=== PATIENT | female | born 1950 | race Caucasian/White ===

== ENCOUNTER → 2020-02-07 | Outpatient (CLI) | payer BC ==
[~2020-02-07] MED LIST: ALLEGRA ALLERG180 MG; ASPI81CH; ASTEPRO205.5 MCG/; Advair Hfa 230-12 GM; Estradiol0.5 MG; LOSARTAN-HCTZ1 EAC2; Lovastatin20 MG; VENL37.5ER
[2020-02-08 10:33] LABS: Appearance, Urine Clear (Clear); Bilirubin, Urine Neg (Neg); Blood, Urine Neg (Neg); Color, Urine Yellow (P-Yellow); Glucose Qualitative, Urine Neg (Neg); Ketones, Urine Neg (Neg); Leukocyte Esterase, Urine Neg (Neg); Nitrite, Urine Neg (Neg); Protein, Urine Neg (Neg); Urobilinogen, Urine NORM (Normal)
== END | disposition home or self-care (01) ==
LOC: LAB SHORT 14:00
PROVIDERS: Family Medicine
DX: N39.9 Disorder of urinary system, unspecified (principal)
CPT/HCPCS: 81003

== ENCOUNTER 2024-01-27 11:48 | Inpatient (IN) | payer MEDICARE, BC ==
[~2024-01-27] VITALS: Ht 152.4 cm; Wt 56.7 kg
[2024-01-27 12:11] LABS: BASOPHILS ABSOLUTE AUTO 0.04 K/mm3 (0.00-0.23); BASOPHILS PERCENT AUTO 0 % (0-2); EOSINOPHILS ABSOLUTE AUTO 0.04 K/mm3 (0.00-0.68); EOSINOPHILS PERCENT AUTO 0 % (0-6); Hematocrit 22.7 % (33.0-51.0); Hemoglobin 7.3 g/dL (11.5-16.0); IMMATURE GRAN ABSOLUTE AUTO 0.11 K/mm3 (0.00-0.10); IMMATURE GRAN PERCENT AUTO 1 % (0-1); LYMPHOCYTES ABSOLUTE AUTO 0.45 K/mm3 (0.84-5.20); LYMPHOCYTES PERCENT AUTO 5 % (21-46); MONOCYTES ABSOLUTE AUTO 0.55 K/mm3 (0.16-1.47); MONOCYTES PERCENT AUTO 6 % (4-13); Mean Corpuscular HGB 29.4 pg (26.0-34.0); Mean Corpuscular HGB Conc 32.2 g/dL (31.5-36.5); Mean Corpuscular Volume 92 fL (80-100); Mean Platelet Volume 10.5 fL (9.1-12.4); NEUTROPHILS ABSOLUTE AUTO 8.59 K/mm3 (1.96-9.15); NEUTROPHILS PERCENT AUTO 88 % (41-73); Platelet Count 196 K/mm3 (150-400); RDW Coefficient Variation 18.2 % (11.7-14.2); Red Blood Cell Count 2.48 M/mm3 (3.80-5.20); White Blood Cell Count 9.78 K/mm3 (4.00-11.30)
[2024-01-27 12:41] LABS: Albumin, Blood 2.8 g/dL (3.4-5.0); Albumin/Globulin Ratio 0.6 (0.8-1.8); Bilirubin, Total 0.4 mg/dL (0.1-1.0); Bun/Creatinine Ratio 17.5 (12.0-20.0); Creatinine, Blood 2.46 mg/dL (0.40-1.00); Globulin, Blood 4.4 g/dL (2.2-4.0); Potassium, Blood 5.3 mmol/L (3.5-5.5); Total Protein, Blood 7.2 g/dL (6.4-8.2)
[2024-01-27] MEDS ORDERED: CefTRIAXone Sodium 1,000 MG in NS 100 ML IV ONE (12:50)
[2024-01-27] MEDS ORDERED: NS 1,000 ML IV SCH (12:50)
[2024-01-27 13:31] LABS: Source, Urine Clean Catch
[2024-01-27] MEDS ORDERED: Morphine Sulfate 4 MG/1 ML Injection IV ONE (14:40)
[2024-01-27 15:05] LABS: Appearance, Urine Clear (Clear); Bilirubin, Urine Neg (Neg); Blood, Urine 3+ (Neg); Color, Urine Yellow (P-Yellow); Glucose Qualitative, Urine Neg (Neg); Ketones, Urine Neg (Neg); Leukocyte Esterase, Urine 2+ (Neg); Nitrite, Urine Neg (Neg); Protein, Urine 2+ (Neg); Specific Gravity, Urine 1.015 (1.003-1.022); Urobilinogen, Urine NORM (Normal)
[2024-01-27] MEDS ORDERED: Acetaminophen 500 MG Tab PO ONE (15:30)
[2024-01-27 15:34] LABS: Bacteria Mod /hpf; Squamous Epithelial Cells Few /hpf (Few); White Blood Cells, Urine 50-100 /hpf (0-5)
[2024-01-27] MEDS ORDERED: FLU VACC TS2024-25(6MOS UP)/PF 45 MCG/0.5 ML SYRINGE IM PRN (16:05)
[2024-01-27] MEDS ORDERED: Ondansetron HCl 2 MG / ML 2ML Vial IV PRN (16:05)
[2024-01-27] MEDS ORDERED: Acetaminophen 325 MG TABLET PO PRN (16:10)
[2024-01-27] MEDS ORDERED: HYDROcodone 10-APAP 325 TAB PO PRN (16:10)
[2024-01-27] MEDS ORDERED: FLUT1DIS5 INH (16:49)
[2024-01-27] MEDS ORDERED: VENL75ER PO (16:50)
[2024-01-27] MEDS ORDERED: LOSARTAN-HCTZ1 EAC6 PO (16:50)
[2024-01-27] MEDS ORDERED: JAKAFI15 MG PO (16:50)
[2024-01-27] MEDS ORDERED: LOVA40 PO (16:51)
[2024-01-27] MEDS ORDERED: ROPI.25 PO (16:51)
[2024-01-27] MEDS ORDERED: Lactated Ringer's 1,000 ML IV SCH ×2 (17:00→18:00)
[2024-01-27] MEDS ORDERED: Lactated Ringer's 1,000 ML IV ONE (17:11)
[2024-01-27] MEDS ORDERED: Piperacillin/Tazobactam Sod 2.25 GM in NS 50 ML IV SCH (17:12)
[2024-01-27] MEDS ORDERED: Albuterol 2.5 MG/3 ML VIAL INH PRN (17:15)
[2024-01-27] MEDS ORDERED: rOPINIRole HCl 0.25 MG Tab PO PRN (17:30)
[2024-01-27 18:20] VITALS: BP 166/66
[2024-01-27] MEDS ORDERED: rOPINIRole HCl 0.25 MG Tab PO SCH (20:00)
[2024-01-27 20:41] VITALS: BP 148/45
[2024-01-27] MEDS ORDERED: Lactobacil 2-S.Thermo-Bifido 1 1 Cap PO SCH (21:00)
[2024-01-28] VITALS (10 sets, daily range): BP systolic 137–185; BP diastolic 46–115
[2024-01-28] MEDS ORDERED: NS 250 ML IV PRN (00:05)
[2024-01-28] MEDS ORDERED: Mometasone/Formoterol MDI 200/5 mcg 13 GM INH SCH (01:40)
[2024-01-28] MEDS ORDERED: Albuterol 2.5 MG/3 ML VIAL INH SCH (01:45)
--- NOTE | 2024-01-28 04:05 | NUR ---
SHIFT SUMMARY PT IS A&O X4, PLEASANT AND COOPERATIVE WITH CARE. AFEBRILE. PT C/O 08/25 RIGHT FLANK PAIN AND OVERALL DISCOMFORT. PRN NORCO 10MG VERY EFFECTIVE PER PT REPORT. PT'S O2 SAT'S @LOW 80'S ON RA. PT HAS HX OF ASTHMA. LUNG SOUNDS WHEEZING UL'S, DIMINISHED ON BASES. RT PROTOCOL AND OXYGEN THERAPY PROTOCOL INITIATED. BREATHING TX'S EFFECTIVE PER PT REPORT. O2 @2L VIA NASAL CANNULA, SAT'S>98%. PT IS SBA, SOME WEAKNESS LE'S,UE'S PER PT REPORT. LR INFUSING @125MLS/HR ORDERED. BED AT THE LOWEST POSITION, CALL LIGHT WITHIN REACH. PT IS ABLE TO MAKE HER NEEDS KNOWN.
[2024-01-28 05:38] LABS: BASOPHILS ABSOLUTE AUTO 0.04 K/mm3 (0.00-0.23); BASOPHILS PERCENT AUTO 0 % (0-2); EOSINOPHILS ABSOLUTE AUTO 0.02 K/mm3 (0.00-0.68); EOSINOPHILS PERCENT AUTO 0 % (0-6); Hematocrit 20.7 % (33.0-51.0); Hemoglobin 6.7 g/dL (11.5-16.0); IMMATURE GRAN ABSOLUTE AUTO 0.08 K/mm3 (0.00-0.10); IMMATURE GRAN PERCENT AUTO 1 % (0-1); LYMPHOCYTES ABSOLUTE AUTO 0.57 K/mm3 (0.84-5.20); LYMPHOCYTES PERCENT AUTO 6 % (21-46); MONOCYTES ABSOLUTE AUTO 0.74 K/mm3 (0.16-1.47); MONOCYTES PERCENT AUTO 8 % (4-13); Mean Corpuscular HGB Conc 32.4 g/dL (31.5-36.5); Mean Corpuscular Volume 93 fL (80-100); Mean Platelet Volume 10.8 fL (9.1-12.4); NEUTROPHILS ABSOLUTE AUTO 7.71 K/mm3 (1.96-9.15); NEUTROPHILS PERCENT AUTO 84 % (41-73); Platelet Count 173 K/mm3 (150-400); RDW Coefficient Variation 18.3 % (11.7-14.2); RDW Standard Deviation 62.8 fL (35.1-46.3); Red Blood Cell Count 2.23 M/mm3 (3.80-5.20); White Blood Cell Count 9.16 K/mm3 (4.00-11.30)
[2024-01-28 06:16] LABS: Bun/Creatinine Ratio 16.3 (12.0-20.0); Creatinine, Blood 2.33 mg/dL (0.40-1.00); Potassium, Blood 4.3 mmol/L (3.5-5.5)
[2024-01-28] MEDS ORDERED: Losartan/HCTZ 50-12.5 TAB PO SCH (09:00)
[2024-01-28] MEDS ORDERED: Atorvastatin 10 MG Tab PO SCH (09:00)
[2024-01-28] MEDS ORDERED: Venlafaxine HCl 37.5 MG CapCR PO SCH (09:00)
[2024-01-28] MEDS ORDERED: Heparin Sodium 5000 Units/ML 1ML MDV SC SCH (09:00)
[2024-01-28] MEDS ORDERED: HydrALAZINE HCl 20 MG / ML 1ML Vial IV PRN (09:20)
[2024-01-28] MEDS ORDERED: CO Q10100 MG PO (11:22)
[2024-01-28] MEDS ORDERED: ESTRADIOL0.5 MG PO (11:22)
[2024-01-28] MEDS ORDERED: Vitamin D1000 UNI1 PO (11:22)
[2024-01-28] MEDS ORDERED: SULTRIDS PO (11:22)
[2024-01-28] MEDS ORDERED: MULVITA PO (11:23)
[2024-01-28 19:12] LABS: Hematocrit 24.5 % (33.0-51.0); Hemoglobin 8.3 g/dL (11.5-16.0)
[2024-01-28] MEDS ORDERED: NS 50 ML IV ONE (23:52)
[2024-01-29 01:06] VITALS: BP 79/64
--- NOTE | 2024-01-29 03:49 | NUR ---
SHIFT SUMMARY NO ACUTE EVENTS DURING THIS SHIFT. PT HAS A FEMALE PUREWICK, YELLOW COLOR URINE, OUTPUT >1L ON THIS SHIFT. PT C/O CHILLS AND REQUESTED PRN PO TYLENOL. ADMINISTERED ORDERED. WARM BLANKETS GIVEN TO THE PT. PRN NORCO 10MG AT HS PER PT REPORT RIGHT FLANK AND BACK PAIN 08/25. PT REPORTS VERY EFFECTIVE. LUNG SOUNDS WHEEZING AND TIGHT UL'S, DIMINISHED LL'S PER AUSCULTATION. O2 @2L VIA NASAL CANNULA, SAT'S>96%. PT REPORTS RT TX'S EFFECTIVE. PT RESTING WELL T/O THE NIGHT HRS. PT IS PLEASANT, COOPERATIVE WITH CARE. SBA TO THE RESTROOM. BED AT THE LOWEST POSITION, CALL LIGHT WITHIN REACH. PT IS ABLE TO MAKE HER NEEDS KNOWN.
[2024-01-29 05:36] LABS: BASOPHILS ABSOLUTE AUTO 0.02 K/mm3 (0.00-0.23); BASOPHILS PERCENT AUTO 0 % (0-2); EOSINOPHILS ABSOLUTE AUTO 0.01 K/mm3 (0.00-0.68); EOSINOPHILS PERCENT AUTO 0 % (0-6); Hematocrit 22.2 % (33.0-51.0); Hemoglobin 7.3 g/dL (11.5-16.0); IMMATURE GRAN ABSOLUTE AUTO 0.15 K/mm3 (0.00-0.10); IMMATURE GRAN PERCENT AUTO 1 % (0-1); LYMPHOCYTES ABSOLUTE AUTO 0.38 K/mm3 (0.84-5.20); LYMPHOCYTES PERCENT AUTO 4 % (21-46); MONOCYTES ABSOLUTE AUTO 0.63 K/mm3 (0.16-1.47); MONOCYTES PERCENT AUTO 6 % (4-13); Mean Corpuscular HGB 29.9 pg (26.0-34.0); Mean Corpuscular HGB Conc 32.9 g/dL (31.5-36.5); Mean Corpuscular Volume 91 fL (80-100); Mean Platelet Volume 10.8 fL (9.1-12.4); NEUTROPHILS PERCENT AUTO 89 % (41-73); Platelet Count 145 K/mm3 (150-400); RDW Coefficient Variation 18.1 % (11.7-14.2); RDW Standard Deviation 59.9 fL (35.1-46.3); Red Blood Cell Count 2.44 M/mm3 (3.80-5.20); White Blood Cell Count 10.89 K/mm3 (4.00-11.30)
[2024-01-29 05:50] VITALS: BP 131/66
[2024-01-29 05:54] LABS: Bun/Creatinine Ratio 14.1 (12.0-20.0); Calcium, Blood 8.8 mg/dL (8.5-10.1); Creatinine, Blood 2.34 mg/dL (0.40-1.00); Potassium, Blood 4.6 mmol/L (3.5-5.5)
[2024-01-29] MEDS ORDERED: Lactated Ringer's 1,000 ML IV SCH ×2 (07:00→11:00)
[2024-01-29 07:19] VITALS: BP 138/49
[2024-01-29 15:05] LABS: Bun/Creatinine Ratio 14.1 (12.0-20.0); Creatinine, Blood 2.06 mg/dL (0.40-1.00); Potassium, Blood 4.5 mmol/L (3.5-5.5)
[2024-01-29 15:38] VITALS: BP 159/56
--- NOTE | 2024-01-29 17:15 | NUR ---
SHIFT SUMMARY: PATIENT ON ROOMAIR AT THIS TIME MAINTAINING OXYGEN SATURATION ABOVE 90%;AT REST. LUNG SOUNDS SOUND BETTER TODAY VERSUS YESTERDAY. PATIENT RECEIVED FLUIDS TODAY; NOT MUCH IMPROVEMENT IN RENAL FUNCTION. PATIENT STATES THAT SHE IS OVERALL FEELING BETTER AND APEARS TO BE LOOKING BETTER. SHE IS USING A PUREWICK FOR I&OS. PATIENT IN BED, CALL LIGHT WITHIN REACH, NO SIGNS OR SYMPTOMS OF DISTRESS, PLAN OF CARE ONGOING.
[2024-01-29 19:16] VITALS: BP 176/69
[2024-01-30 00:04] VITALS: BP 159/72
[2024-01-30 03:48] VITALS: BP 183/73
--- NOTE | 2024-01-30 04:10 | NUR ---
SHIFT SUMMARY: PT AOX4 AND IND IN THE ROOM. SOME COMPLAINTS OF MINOR BACK PAIN MEDICATED PER EMR. EPISODES OF HTN MEDICATED PER EMR. WAS ABLE TO SLEEP A GOOD AMOUNT OF THE NIGHT. COMPLAINTS OF NAUSEA, MEDICATED PER EMR. STATES THAT THE MEDICATIONS HELP SOOTH THE DISCOMFORT. PT IS ROOM AIR AND ABLE TO AMBULATE TO THE RESTROOM NEEDED. CALLS APPROPRIATELY. PT CURRENTLY SLEEPING IN BED, BED IN LOWEST POSITION, CALL LIGHT IN REACH. CONTINUING CARE.
[2024-01-30 04:53] VITALS: BP 151/58
[2024-01-30 05:04] LABS: BASOPHILS ABSOLUTE AUTO 0.04 K/mm3 (0.00-0.23); BASOPHILS PERCENT AUTO 0 % (0-2); EOSINOPHILS ABSOLUTE AUTO 0.04 K/mm3 (0.00-0.68); EOSINOPHILS PERCENT AUTO 0 % (0-6); Hematocrit 22.8 % (33.0-51.0); Hemoglobin 7.6 g/dL (11.5-16.0); IMMATURE GRAN PERCENT AUTO 2 % (0-1); LYMPHOCYTES ABSOLUTE AUTO 0.39 K/mm3 (0.84-5.20); LYMPHOCYTES PERCENT AUTO 3 % (21-46); MONOCYTES ABSOLUTE AUTO 0.64 K/mm3 (0.16-1.47); MONOCYTES PERCENT AUTO 4 % (4-13); Mean Corpuscular HGB Conc 33.3 g/dL (31.5-36.5); Mean Corpuscular Volume 90 fL (80-100); Mean Platelet Volume 11.3 fL (9.1-12.4); NEUTROPHILS ABSOLUTE AUTO 13.94 K/mm3 (1.96-9.15); NEUTROPHILS PERCENT AUTO 91 % (41-73); Platelet Count 191 K/mm3 (150-400); RDW Coefficient Variation 18.3 % (11.7-14.2); RDW Standard Deviation 59.7 fL (35.1-46.3); Red Blood Cell Count 2.53 M/mm3 (3.80-5.20); White Blood Cell Count 15.35 K/mm3 (4.00-11.30)
[2024-01-30 05:31] LABS: Bun/Creatinine Ratio 14.5 (12.0-20.0); Calcium, Blood 9.2 mg/dL (8.5-10.1); Creatinine, Blood 1.93 mg/dL (0.40-1.00); Potassium, Blood 4.6 mmol/L (3.5-5.5)
[2024-01-30 07:04] VITALS: BP 141/61
[2024-01-30] MEDS ORDERED: CefTRIAXone Sodium 1,000 MG in NS 100 ML IV SCH (09:00)
[2024-01-30] MEDS ORDERED: NS 1,000 ML IV SCH (11:00)
[2024-01-30 14:33] LABS: Bun/Creatinine Ratio 14.8 (12.0-20.0); Calcium, Blood 8.7 mg/dL (8.5-10.1); Creatinine, Blood 1.82 mg/dL (0.40-1.00); Potassium, Blood 4.1 mmol/L (3.5-5.5)
[2024-01-30 15:17] VITALS: BP 151/62
[2024-01-30 19:20] VITALS: BP 150/61
[2024-01-30] MEDS ORDERED: DEXTROMETHORPHAN/BENZOCAINE 1 EACH LOZENGE MT ONE ×2 (20:00)
[2024-01-30] MEDS ORDERED: DEXTROMETHORPHAN/BENZOCAINE 1 EACH LOZENGE MT PRN (20:00)
[2024-01-30] MEDS ORDERED: Melatonin 5 MG Tablet PO ONE (20:05)
[2024-01-30] MEDS ORDERED: Melatonin 5 MG Tablet PO PRN (20:05)
--- NOTE | 2024-01-30 22:28 | NUR ---
AT 1950 I CALLED THE HOSPITALIST BECAUSE MY PT HAD A SORE THROAT AND TROUBLE SLEEPING. HOSPITALIST PRESCRIBED LOZANGES AND MELATONIN (SEE eMAR) PT IS FEELING BETTER AND NOW RESTING PEACEFULLY. HOSPITALIST ADVISED TO CALL BACK IF SORE THROAT AND COUGH DID NOT IMPROVE AND HE WOULD ORDER SOME COUGH SYRUP.
[2024-01-31] VITALS (7 sets, daily range): BP systolic 156–183; BP diastolic 52–78
--- NOTE | 2024-01-31 03:45 | NUR ---
SHIFT SUMMARY: PT IS A 73 YO FULL CODE WHO IS NOW BEING TREATED FOR PYLEONEPHRITIS. PT HAS HAD A COUPLE EPISODES OF BOWEL URGENCY AND LOOSE STOOLS OR SHE CALLS THEM "CODE JOSEPHINE".PT IS IND IN THE ROOM AND WEARS PULL UPS FOR THE INCONTINENT MOMENTS. PT REPORTS "FEELING BETTER AND NOT SOB". I CALLED THE HOSPITALIST FOR SOME COUGH DROPS AND SOMETHING TO HELP HER SLEEP (SEE PREV.NOTE). PT HAS NOW BEEN RESTING AND SLEEPING. PT ALSO RECEIVED A BREATHING TREATMENT AND USES CALL LIGHT TO MAKE HER NEEDS KNOWN. CALL LIGHT IN REACH
[2024-01-31 04:56] LABS: BASOPHILS ABSOLUTE AUTO 0.03 K/mm3 (0.00-0.23); BASOPHILS PERCENT AUTO 0 % (0-2); EOSINOPHILS ABSOLUTE AUTO 0.05 K/mm3 (0.00-0.68); EOSINOPHILS PERCENT AUTO 0 % (0-6); Hematocrit 23.1 % (33.0-51.0); Hemoglobin 7.5 g/dL (11.5-16.0); IMMATURE GRAN ABSOLUTE AUTO 0.24 K/mm3 (0.00-0.10); IMMATURE GRAN PERCENT AUTO 2 % (0-1); LYMPHOCYTES ABSOLUTE AUTO 0.33 K/mm3 (0.84-5.20); LYMPHOCYTES PERCENT AUTO 2 % (21-46); MONOCYTES ABSOLUTE AUTO 0.88 K/mm3 (0.16-1.47); MONOCYTES PERCENT AUTO 6 % (4-13); Mean Corpuscular HGB 29.5 pg (26.0-34.0); Mean Corpuscular HGB Conc 32.5 g/dL (31.5-36.5); Mean Corpuscular Volume 91 fL (80-100); Mean Platelet Volume 11.2 fL (9.1-12.4); NEUTROPHILS ABSOLUTE AUTO 13.98 K/mm3 (1.96-9.15); NEUTROPHILS PERCENT AUTO 90 % (41-73); NRBC ABSOLUTE 0.02 K/mm3 (0.00-0.02); NRBC Auto 0.1 /100 WBC (0.0-0.2); Platelet Count 214 K/mm3 (150-400); RDW Coefficient Variation 18.2 % (11.7-14.2); Red Blood Cell Count 2.54 M/mm3 (3.80-5.20); White Blood Cell Count 15.51 K/mm3 (4.00-11.30)
[2024-01-31 05:31] LABS: Bun/Creatinine Ratio 14.3 (12.0-20.0); Calcium, Blood 9.2 mg/dL (8.5-10.1); Creatinine, Blood 1.61 mg/dL (0.40-1.00); Potassium, Blood 4.5 mmol/L (3.5-5.5)
--- NOTE | 2024-01-31 18:32 | NUR ---
LAINE IS DOING WELL REGARDING WORK OF BREATHING. ROOM AIR. CONTINUING WITH IV ANTIBIOTICS. SHE COMPLAINED OF RIGHT FLANK PAIN, AND A CT SCAN WAS OBTAINED SHOWING A RUPTURED CYST ON THE RIGHT KIDNEY. PLAN IS TO NOW CONSULT UROLOGY. PT REPORTS THAT SHE HAS A GOOD APPETITE AND THAT HER LOOSE STOOLS HAVE BEGUN TO FIRM UP. SHE HAS URINARY INCONTINCE IN ATTENDS. BREATHING TREATMENTS PRN. A&O X4. ABLE TO USE CALL LIGHT APPROPRIATELY.
[2024-02-01 02:20] VITALS: BP 158/61
--- NOTE | 2024-02-01 04:00 | NUR ---
SHIFT SUMMARY: PT HAS BEEN RESTING MOST OF THE EVENING BUT DID REQUIRE SOME PAIN MEDICATION FOR PAIN AND COUGH DROPS FOR SORE THROAT. LOOSE STOOLS HAVE IMPROVED ALONG W/COUGH. PT HAS BEEN NPO SINCE MIDNIGHT FOR POSSIBLE TRANSFER OR SURGERY. PT DID REQUIRE SOME IV HYDRALAZINE FOR HIGH SYSTOLIC BP OVER 170-SEE (EMAR) HTN RESOLVED OF NOW MAKES NEEDS KNOW AND CALLS, CALL LIGHT IN REACH
[2024-02-01 04:37] LABS: BASOPHILS ABSOLUTE AUTO 0.06 K/mm3 (0.00-0.23); BASOPHILS PERCENT AUTO 0 % (0-2); EOSINOPHILS ABSOLUTE AUTO 0.06 K/mm3 (0.00-0.68); EOSINOPHILS PERCENT AUTO 0 % (0-6); Hematocrit 24.4 % (33.0-51.0); Hemoglobin 7.9 g/dL (11.5-16.0); IMMATURE GRAN ABSOLUTE AUTO 0.21 K/mm3 (0.00-0.10); IMMATURE GRAN PERCENT AUTO 1 % (0-1); LYMPHOCYTES ABSOLUTE AUTO 0.43 K/mm3 (0.84-5.20); LYMPHOCYTES PERCENT AUTO 3 % (21-46); MONOCYTES ABSOLUTE AUTO 0.98 K/mm3 (0.16-1.47); MONOCYTES PERCENT AUTO 6 % (4-13); Mean Corpuscular HGB 30.2 pg (26.0-34.0); Mean Corpuscular HGB Conc 32.4 g/dL (31.5-36.5); Mean Corpuscular Volume 93 fL (80-100); Mean Platelet Volume 11.1 fL (9.1-12.4); NEUTROPHILS ABSOLUTE AUTO 13.62 K/mm3 (1.96-9.15); NEUTROPHILS PERCENT AUTO 89 % (41-73); NRBC ABSOLUTE 0.02 K/mm3 (0.00-0.02); NRBC Auto 0.1 /100 WBC (0.0-0.2); Platelet Count 225 K/mm3 (150-400); RDW Coefficient Variation 18.2 % (11.7-14.2); RDW Standard Deviation 61.7 fL (35.1-46.3); Red Blood Cell Count 2.62 M/mm3 (3.80-5.20); White Blood Cell Count 15.36 K/mm3 (4.00-11.30)
[2024-02-01 04:54] LABS: Albumin, Blood 2.4 g/dL (3.4-5.0); Albumin/Globulin Ratio 0.6 (0.8-1.8); Bilirubin, Total 0.4 mg/dL (0.1-1.0); Calcium, Blood 9.3 mg/dL (8.5-10.1); Creatinine, Blood 1.5 mg/dL (0.40-1.00); Globulin, Blood 4.3 g/dL (2.2-4.0); Potassium, Blood 4.7 mmol/L (3.5-5.5); Total Protein, Blood 6.7 g/dL (6.4-8.2)
[2024-02-01 07:22] VITALS: BP 139/54
[2024-02-01 13:02] LABS: International Normalized Ratio 1.07; Prothrombin Time Results 11.4 Sec (9.7-11.5)
--- NOTE | 2024-02-01 13:52 | NUR ---
TO DAY SURG
--- NOTE | 2024-02-01 14:21 | NUR ---
PT WAS RETURNED TO ROOM. NO EXPLANATION. PENDING NEXT STEP FROM
[2024-02-01 16:10] VITALS: BP 150/53
--- NOTE | 2024-02-01 16:12 | NUR ---
PT PLEASANT TODAY. DID MEDICATE TODAY FOR PAIN. WENT TO PROCEDURE FOR DRAIN, RETURNED TO ROOM,, NO DRAIN PLACED. DR CALLED AND TO SEE PT TO DISCUSS. PT CONTINUES TO AMBULATE ABOUT ROOM. FRIENDS IN TO VISIT TODAY. NO OTHER NEW CONCERNS NOTED. BED IN LOW POSITION, CALL LITE IN REACH, CALLS APROP
[2024-02-01 21:26] VITALS: BP 180/58
[2024-02-01 21:45] VITALS: BP 158/60
[2024-02-02] VITALS (7 sets, daily range): BP systolic 135–178; BP diastolic 51–64
--- NOTE | 2024-02-02 03:33 | NUR ---
SHIFT SUMM: PT HAS BEEN RESTING BUT DID NEED SOME HYDRALAZINE AT BEG OF SHIFT FOR HTN WITH A SYSTOLIC GREATER THAN 170. HTN NOW RESOLVED AND PT HAS BEEN IND IN ROOM AND LESS INCONT. EPISODES.PT HAD A SNACK BEFORE MIDNIGHT AND IS NOW NPO FOR SURGERY TOMORROW. PT RECEIVED PAIN MEDICATION AND HAS NO REQUESTS AT THIS TIME. I APPLIED TELE TO THE PT AND SHE IS A LITTLE TACHYCARDIC BUT NORMAL SR. PT IS NOW RESTING AND HAS CALL LIGHT.
[2024-02-02 06:59] LABS: BASOPHILS ABSOLUTE AUTO 0.06 K/mm3 (0.00-0.23); BASOPHILS PERCENT AUTO 0 % (0-2); EOSINOPHILS ABSOLUTE AUTO 0.17 K/mm3 (0.00-0.68); EOSINOPHILS PERCENT AUTO 1 % (0-6); Hematocrit 24.6 % (33.0-51.0); Hemoglobin 7.9 g/dL (11.5-16.0); IMMATURE GRAN ABSOLUTE AUTO 0.29 K/mm3 (0.00-0.10); IMMATURE GRAN PERCENT AUTO 2 % (0-1); LYMPHOCYTES ABSOLUTE AUTO 0.44 K/mm3 (0.84-5.20); LYMPHOCYTES PERCENT AUTO 3 % (21-46); MONOCYTES ABSOLUTE AUTO 1.12 K/mm3 (0.16-1.47); MONOCYTES PERCENT AUTO 6 % (4-13); Mean Corpuscular HGB 29.8 pg (26.0-34.0); Mean Corpuscular HGB Conc 32.1 g/dL (31.5-36.5); Mean Corpuscular Volume 93 fL (80-100); Mean Platelet Volume 10.6 fL (9.1-12.4); NEUTROPHILS ABSOLUTE AUTO 15.42 K/mm3 (1.96-9.15); NEUTROPHILS PERCENT AUTO 88 % (41-73); NRBC ABSOLUTE 0.03 K/mm3 (0.00-0.02); NRBC Auto 0.2 /100 WBC (0.0-0.2); Platelet Count 244 K/mm3 (150-400); RDW Coefficient Variation 18.3 % (11.7-14.2); RDW Standard Deviation 62.4 fL (35.1-46.3); Red Blood Cell Count 2.65 M/mm3 (3.80-5.20)
[2024-02-02 07:22] LABS: Albumin, Blood 2.2 g/dL (3.4-5.0); Albumin/Globulin Ratio 0.5 (0.8-1.8); Bilirubin, Total 0.4 mg/dL (0.1-1.0); Bun/Creatinine Ratio 11.9 (12.0-20.0); Calcium, Blood 9.4 mg/dL (8.5-10.1); Creatinine, Blood 1.6 mg/dL (0.40-1.00); Globulin, Blood 4.3 g/dL (2.2-4.0); Potassium, Blood 4.5 mmol/L (3.5-5.5); Total Protein, Blood 6.5 g/dL (6.4-8.2)
[2024-02-02] MEDS ORDERED: NS 250 ML IV ONE (13:48)
--- NOTE | 2024-02-02 16:18 | NUR ---
SHIFT SUMMARY PT AWAKE DURING SHIFT REPORT. RESTING QUIETLY WATCHING TV. PT NPO FOR PROCEDURE THIS AFTERNOON. IR PLACED DRAIN TO R KIDNEY; PT TOLERATED WELL. NOW BACK TO RM. DR FLYNN NOTIFIED FOR DIET. NO C/O. UP INDEPENDENTLY TO BTHRM AND AMBULATING AROUND RM. PLEASANT AND CO-OP. ABLE TO MAKE NEEDS KNOWN.
[2024-02-03 03:31] VITALS: BP 180/66
[2024-02-03 04:24] VITALS: BP 163/59
[2024-02-03 04:43] LABS: BASOPHILS ABSOLUTE AUTO 0.07 K/mm3 (0.00-0.23); BASOPHILS PERCENT AUTO 0 % (0-2); EOSINOPHILS ABSOLUTE AUTO 0.22 K/mm3 (0.00-0.68); EOSINOPHILS PERCENT AUTO 1 % (0-6); Hematocrit 24.5 % (33.0-51.0); Hemoglobin 7.9 g/dL (11.5-16.0); IMMATURE GRAN ABSOLUTE AUTO 0.47 K/mm3 (0.00-0.10); IMMATURE GRAN PERCENT AUTO 3 % (0-1); LYMPHOCYTES ABSOLUTE AUTO 0.55 K/mm3 (0.84-5.20); LYMPHOCYTES PERCENT AUTO 3 % (21-46); MONOCYTES ABSOLUTE AUTO 1.05 K/mm3 (0.16-1.47); MONOCYTES PERCENT AUTO 6 % (4-13); Mean Corpuscular HGB 29.5 pg (26.0-34.0); Mean Corpuscular HGB Conc 32.2 g/dL (31.5-36.5); Mean Corpuscular Volume 91 fL (80-100); Mean Platelet Volume 10.9 fL (9.1-12.4); NEUTROPHILS ABSOLUTE AUTO 16.13 K/mm3 (1.96-9.15); NEUTROPHILS PERCENT AUTO 87 % (41-73); NRBC ABSOLUTE 0.02 K/mm3 (0.00-0.02); NRBC Auto 0.1 /100 WBC (0.0-0.2); Platelet Count 294 K/mm3 (150-400); RDW Standard Deviation 59.9 fL (35.1-46.3); Red Blood Cell Count 2.68 M/mm3 (3.80-5.20); White Blood Cell Count 18.49 K/mm3 (4.00-11.30)
--- NOTE | 2024-02-03 05:00 | NUR ---
NOS SUMMARY- PT DRAIN IS PUTTING OUT SCANT RED FLUID. DRAIN DRESSING IS C/D/I. PT PAIN MANAGED WELL. PT HAS SOME HTN NOTED AND TX PER APR. PT HAS SLEPT OFF AND ON. NO TELE EVENTS REPORTED. PT HAS REMAINED SR IN LOW 100'S. PT HAS BEEN UP TO VOID WITHOUT ISSUE. CALL LIGHT IN REACH.
[2024-02-03 05:32] LABS: Albumin, Blood 2.2 g/dL (3.4-5.0); Albumin/Globulin Ratio 0.5 (0.8-1.8); Bilirubin, Total 0.4 mg/dL (0.1-1.0); Bun/Creatinine Ratio 12.3 (12.0-20.0); Calcium, Blood 9.2 mg/dL (8.5-10.1); Creatinine, Blood 1.38 mg/dL (0.40-1.00); Globulin, Blood 4.2 g/dL (2.2-4.0); Potassium, Blood 3.8 mmol/L (3.5-5.5); Total Protein, Blood 6.4 g/dL (6.4-8.2)
[2024-02-03 07:51] VITALS: BP 166/61
--- NOTE | 2024-02-03 10:03 | NUR ---
ASSUMED CARE OF PATIENT. BEDSIDE REPORT COMPLETED. PATIENT AWAKE AND PARTICIPATES IN REPORT. URACIL PATENT AND DRAINING SCANT AMOUNT OF LINA BLOOD VIA ACCORDIAN DRAIN. PAIN MINIMAL AT THIS TIME. SALINE LOCKED LEFT FOREARM. NO CONCERNS AT THIS TIME.
[2024-02-03] MEDS ORDERED: Vancomycin HCL 1,250 MG in NS 250 ML IV SCH (15:30)
[2024-02-03 15:48] VITALS: BP 166/60
--- NOTE | 2024-02-03 18:29 | NUR ---
END OF SHIFT SUMMARY: A&Ox4. PLEASANT AND COOPERATIVE WITH CARE. CALLS APPROPRIATELY AND IS ABLE TO ADVOCATE NEEDS EFFECTIVELY. CONTINENT OF BOWEL AND BLADDER AND AMBULATES INDEPENDENTLY WITHIN THE ROOM. LBM TODAY PER PATIENT REPORT. MEDICATED PRN PAIN x2 T/O SHIFT. VANCO STARTED TODAY. ACCORDIAN DRAIN PATENT AND DRAINING LINA RED BLOOD TO URESIL COLLECTION BAG. ONE REPORTED EPISODE OF TACHYCARDIA NOTED ON TELEMETRY WHEN AMBULATING TO BATHROOM. BED IN LOWEST POSITION, CALL LIGHT WITHIN REACH, ALL NEEDS MET. REPORT TO ONCOMING NURSE.
[2024-02-03 19:32] VITALS: BP 151/56
[2024-02-04 04:02] VITALS: BP 152/73
--- NOTE | 2024-02-04 04:37 | NUR ---
PT HAS HAD A GOOD EVENING AND HAS BEEN RESTING MOST OF THE SHIFT. I ASSESSED THE PT'S DRAIN AND EMPTIED 50MLS OF LINA RED BLOOD. PT HAS HAD SOME PAIN THAT WAS TREATED BUT VITALS WNL. PT IND WITH CALL LIGHT IN REACH.
[2024-02-04 05:20] LABS: Hematocrit 23.6 % (33.0-51.0); Hemoglobin 7.4 g/dL (11.5-16.0); Mean Corpuscular HGB 29.2 pg (26.0-34.0); Mean Corpuscular HGB Conc 31.4 g/dL (31.5-36.5); Mean Corpuscular Volume 93 fL (80-100); Mean Platelet Volume 10.5 fL (9.1-12.4); NRBC ABSOLUTE 0.02 K/mm3 (0.00-0.02); NRBC Auto 0.1 /100 WBC (0.0-0.2); Platelet Count 297 K/mm3 (150-400); RDW Coefficient Variation 18.1 % (11.7-14.2); RDW Standard Deviation 61.7 fL (35.1-46.3); Red Blood Cell Count 2.53 M/mm3 (3.80-5.20); White Blood Cell Count 14.76 K/mm3 (4.00-11.30)
[2024-02-04 05:58] LABS: Anion Gap 13 mmol/L (3-11); Blood Urea Nitrogen 19 mg/dL (8-24); Bun/Creatinine Ratio 11.6 (12.0-20.0); CO2, Blood 22 mmol/L (21-32); Chloride, Blood 103 mmol/L (98-108); Creatinine, Blood 1.64 mg/dL (0.40-1.00); Glomerular Filtration Rate 33 (60-); Glucose, Blood 114 mg/dL (70-99); Sodium, Blood 134 mmol/L (136-145); Vancomycin, Random 18.5 ug/mL
[2024-02-04 06:24] LABS: BAND PERCENT MAN 2 % (0-8); BASOPHILS PERCENT MAN 0 % (0-2); EOSINOPHILS ABSOLUTE MAN 0.29 K/mm3 (0.00-0.68); EOSINOPHILS PERCENT MAN 2 % (0-6); LYMPHOCYTES ABSOLUTE MAN 0.59 K/mm3 (0.84-5.20); LYMPHOCYTES PERCENT MAN 4 % (21-46); METAMYELOCYTE ABSOLUTE MAN 0.14 K/mm3 (0.00-0.00); METAMYELOCYTE PERCENT MAN 1 % (0-0); MONOCYTES ABSOLUTE MAN 0.59 K/mm3 (0.16-1.47); MONOCYTES PERCENT MAN 4 % (4-13); MYELOCYTE ABSOLUTE MAN 0.29 K/mm3 (0.00-0.00); MYELOCYTE PERCENT MAN 2 % (0-0); NEUTROPHILS ABSOLUTE MAN 12.84 K/mm3 (1.96-9.15); SEG NEUTROPHILS PERCENT MAN 85 % (41-73); TOTAL CELLS COUNTED 100
--- NOTE | 2024-02-04 07:25 | NUR ---
ASSUMED CARE OF PATIENT. PATIENT AWAKE DURING SHIFT CHANGE REPORT. NO C/O PAIN OR DISCOMFORT. URESIL PATENT AND DRAINING TO ACCORDIAN DRAINAGE.
[2024-02-04 07:30] VITALS: BP 145/64
[2024-02-04] MEDS ORDERED: Vancomycin HCL 500 MG in NS 250 ML IV SCH (09:00)
[2024-02-04 15:53] VITALS: BP 154/66
--- NOTE | 2024-02-04 16:17 | NUR ---
CALL FORM CLASSIFIER TENDER: PATIENT HAD SHORT RUN OF V-TACK TO 150s AND THEN BACK DOWN TO 80s. CHECKED WITH PATIENT WHO HAD JUST AMBULATED TO THE BATHROOM AND WAS EXPERIENCING SOME FLANK PAIN. MEDICATED FOR PAIN AND PROVIDER NOTIFIED OF EPISODE. NO NEW ORDERS.
[2024-02-04] MEDS ORDERED: NS 1,000 ML IV SCH (18:00)
--- NOTE | 2024-02-04 18:49 | NUR ---
END OF SHIFT SUMMARY: A&Ox4. PLEASANT AND COOPERATIVE WITH CARE. CALLS APPROPRIATELY AND IS ABLE TO ADVOCATE NEEDS EFFECTIVELY. CONTINENT OF BOWEL AND BLADDER AND AMBULATES INDEPENDENTLY WITHIN THE ROOM. LBM TODAY PER PATIENT REPORT. MEDICATED PRN PAIN x2 T/O SHIFT. NEXT DOSE DUE AT 2200. URESIL PATENT AND DRAINING VIA ACCORDIAN NEGATIVE PRESSURE. CONTINUES WITH VANCO AND ROCEPHIN; ABSCESS Cx GREW OUT E.COLI. EPISODE OF TACHYCARDIA AGAIN WHILE AMBULATING TO BATHROOM. NO NEW ORDERS WHEN PROVIDER NOTIFIED. ABD CT SHOWED DECREASE IN SIZE OF SUBCAPSULAR RENAL HEMATOMA. HAORS VOICE OF WHICH SHE ATTRIBUTES TO HER INHALER. BED IN LOWEST POSITION, CALL LIGHT WITHIN REACH, ALL NEEDS MET. REPORT TO ONCOMING NURSE.
[2024-02-04] MEDS ORDERED: Misc. Inhaler INH SCH (19:50)
[2024-02-04 20:24] VITALS: BP 175/70
[2024-02-04 20:25] VITALS: BP 156/65
--- NOTE | 2024-02-05 05:25 | NUR ---
CUSTOM HOME INSTALLER SUMMARY NO MAJOR COMPLAINTS OVERNIGHT. SEE I AND O FOR DRAIN OUTPUT.
[2024-02-05 05:44] VITALS: BP 160/66
[2024-02-05 07:59] VITALS: BP 144/68
[2024-02-05 08:15] LABS: Hematocrit 22.7 % (33.0-51.0); Hemoglobin 7.2 g/dL (11.5-16.0); Mean Corpuscular HGB 29.4 pg (26.0-34.0); Mean Corpuscular HGB Conc 31.7 g/dL (31.5-36.5); Mean Corpuscular Volume 93 fL (80-100); Mean Platelet Volume 10.8 fL (9.1-12.4); NRBC ABSOLUTE 0.02 K/mm3 (0.00-0.02); NRBC Auto 0.2 /100 WBC (0.0-0.2); Platelet Count 329 K/mm3 (150-400); RDW Coefficient Variation 18.3 % (11.7-14.2); RDW Standard Deviation 62.2 fL (35.1-46.3); Red Blood Cell Count 2.45 M/mm3 (3.80-5.20); White Blood Cell Count 11.96 K/mm3 (4.00-11.30)
[2024-02-05 08:35] LABS: Albumin/Globulin Ratio 0.5 (0.8-1.8); Bilirubin, Total 0.4 mg/dL (0.1-1.0); Bun/Creatinine Ratio 13.1 (12.0-20.0); Calcium, Blood 8.6 mg/dL (8.5-10.1); Creatinine, Blood 1.45 mg/dL (0.40-1.00); Globulin, Blood 3.9 g/dL (2.2-4.0); Potassium, Blood 3.9 mmol/L (3.5-5.5); Total Protein, Blood 5.9 g/dL (6.4-8.2)
[2024-02-05] MEDS ORDERED: NS 250 ML IV ONE (09:32)
[2024-02-05 10:19] LABS: BAND PERCENT MAN 2 % (0-8); BASOPHILS ABSOLUTE MAN 0.11 K/mm3 (0.00-0.23); BASOPHILS PERCENT MAN 1 % (0-2); EOSINOPHILS ABSOLUTE MAN 0.59 K/mm3 (0.00-0.68); EOSINOPHILS PERCENT MAN 5 % (0-6); LYMPHOCYTES ABSOLUTE MAN 0.35 K/mm3 (0.84-5.20); LYMPHOCYTES PERCENT MAN 3 % (21-46); METAMYELOCYTE ABSOLUTE MAN 0.11 K/mm3 (0.00-0.00); METAMYELOCYTE PERCENT MAN 1 % (0-0); MONOCYTES ABSOLUTE MAN 0.47 K/mm3 (0.16-1.47); MONOCYTES PERCENT MAN 4 % (4-13); MYELOCYTE ABSOLUTE MAN 0.11 K/mm3 (0.00-0.00); MYELOCYTE PERCENT MAN 1 % (0-0); NEUTROPHILS ABSOLUTE MAN 10.16 K/mm3 (1.96-9.15); SEG NEUTROPHILS PERCENT MAN 83 % (41-73); TOTAL CELLS COUNTED 100
[2024-02-05] MEDS ORDERED: NS 1,000 ML IV SCH (11:00)
[2024-02-05 15:38] VITALS: BP 185/75
[2024-02-05] MEDS ORDERED: ACET325 PO (16:18)
[2024-02-05] MEDS ORDERED: ALBU90OI INH (16:20)
[2024-02-05] MEDS ORDERED: CEFD300 PO (16:20)
[2024-02-05] MEDS ORDERED: Norco 10-325 T1 EACH PO (16:21)
[2024-02-05] MEDS ORDERED: VISBIOME 112.51 EACH PO (16:22)
== END 2024-02-05 17:45 | disposition home or self-care (01) | DRG 871 ==
LOC: ER 11:48 → MEDS 16:03 → PCU 02-01 14:12 → MEDS 02-01 14:17
PROVIDERS: Emergency Medicine; Family Medicine; Student in an Organized Health Care Education/Training Program; ADMIT Hospitalist
PROC: 3E03329 Introduction of Other Anti-infective into Peripheral Vein, Percutaneous Approach (ICD-10-PCS; principal; 2024-01-27)
PROC: 30233N1 Transfusion of Nonautologous Red Blood Cells into Peripheral Vein, Percutaneous Approach (ICD-10-PCS; 2024-01-28)
DX: A41.51 Sepsis due to Escherichia coli [E. coli] (principal); J96.01 Acute respiratory failure with hypoxia; N15.1 Renal and perinephric abscess; N12 Tubulo-interstitial nephritis, not specified as acute or chronic; Z16.24 Resistance to multiple antibiotics; N17.9 Acute kidney failure, unspecified; D75.81 Myelofibrosis; N18.2 Chronic kidney disease, stage 2 (mild); J45.909 Unspecified asthma, uncomplicated; F32.A Depression, unspecified; E78.5 Hyperlipidemia, unspecified; I12.9 Hypertensive chronic kidney disease with stage 1 through stage 4 chronic kidney disease, or unspecified chronic kidney disease; G25.81 Restless legs syndrome; D63.0 Anemia in neoplastic disease; D64.9 Anemia, unspecified; D72.819 Decreased white blood cell count, unspecified; D75.839 Thrombocytosis, unspecified; D72.829 Elevated white blood cell count, unspecified; Z88.8 Allergy status to other drugs, medicaments and biological substances; Z79.51 Long term (current) use of inhaled steroids; Z79.82 Long term (current) use of aspirin; Z87.891 Personal history of nicotine dependence; Z60.2 Problems related to living alone
CPT/HCPCS: 36415; 36430; 71045; 71046; 74176; 74177; 75989; 76770; 80048; 80053; 80202; 81001; 83605; 85014; 85018; 85025; 85610; 86850; 86900; 86901; 86923; 87040; 87070; 87075; 87077; 87086; 87186; 87205; 93005; 93010; 94640; 94664; 94760; 94762; 96365; 96375; 99285-25; A9270; C1729; C1769; J0360; J0696; J1644; J2270; J2405; J2543; J3370; J7030; J7050; J7120; P9016; Q9967

== ENCOUNTER 2024-02-29 06:42 | Day surgery (SDC) | payer BC ==
[~2024-02-29] VITALS: Ht 149.9 cm; Wt 56.0 kg
[~2024-02-29 06:42] MED LIST changes: +ACET325 PO; +ALBU90OI INH; +CEFD300 PO; +CO Q10100 MG PO; +ESTRADIOL0.5 MG PO; +FLUT1DIS5 INH; +JAKAFI15 MG PO; +LOSARTAN-HCTZ1 EAC6 PO; +LOVA40 PO; +MULVITA PO; +Norco 10-325 T1 EACH PO; +ROPI.25 PO; +SULTRIDS PO; +VENL75ER PO; +VISBIOME 112.51 EACH PO; +Vitamin D1000 UNI1 PO
[2024-02-29] MEDS ORDERED: NS 250 ML IV ONE (06:53)
--- NOTE | 2024-02-29 08:07 | NUR ---
NO SEDATION USED. NO IV. PT PEPARED FOR DISCHARGE.
== END 2024-02-29 08:59 | disposition home or self-care (01) ==
LOC: MHTC 06:42
DX: S37.019A Minor contusion of unspecified kidney, initial encounter (principal); E78.5 Hyperlipidemia, unspecified; I10 Essential (primary) hypertension; Z88.8 Allergy status to other drugs, medicaments and biological substances; Z79.899 Other long term (current) drug therapy; X58.XXXA Exposure to other specified factors, initial encounter
CPT/HCPCS: C1729; C1769; J7050

== ENCOUNTER → 2024-04-25 | Outpatient (CLI) | payer BC ==
[2024-04-26 12:12] LABS: Stool Occult Bld Immuno 1 Negative (NEGATIVE)
== END | disposition home or self-care (01) ==
LOC: LAB SHORT 11:50 → LAB 11:50 → LAB FUT 04-11 14:15
PROVIDERS: Family Medicine
DX: Z12.11 Encounter for screening for malignant neoplasm of colon (principal); R79.9 Abnormal finding of blood chemistry, unspecified
CPT/HCPCS: G0328

== ENCOUNTER 2024-10-07 05:17 | Inpatient (IN) | payer MEDICARE, BC ==
[2024-10-07] VITALS (44 sets, daily range): BP systolic 107–230; BP diastolic 36–112
[~2024-10-07] VITALS: Ht 149.9 cm; Wt 72.5 kg
[2024-10-07 05:43] LABS: pH Blood Venous 7.42 (7.34-7.37)
[2024-10-07 05:54] LABS: BASOPHILS ABSOLUTE AUTO 0.06 K/mm3 (0.00-0.23); BASOPHILS PERCENT AUTO 1 % (0-2); EOSINOPHILS ABSOLUTE AUTO 0.03 K/mm3 (0.00-0.68); EOSINOPHILS PERCENT AUTO 0 % (0-6); IMMATURE GRAN ABSOLUTE AUTO 0.18 K/mm3 (0.00-0.10); IMMATURE GRAN PERCENT AUTO 2 % (0-1); LYMPHOCYTES ABSOLUTE AUTO 1.53 K/mm3 (0.84-5.20); LYMPHOCYTES PERCENT AUTO 12 % (21-46); MONOCYTES ABSOLUTE AUTO 0.78 K/mm3 (0.16-1.47); MONOCYTES PERCENT AUTO 6 % (4-13); Mean Corpuscular HGB Conc 32.4 g/dL (31.5-36.5); Mean Corpuscular Volume 90 fL (80-100); NEUTROPHILS ABSOLUTE AUTO 9.74 K/mm3 (1.96-9.15); NEUTROPHILS PERCENT AUTO 79 % (41-73); NRBC ABSOLUTE 0.28 K/mm3 (0.00-0.02); NRBC Auto 2.3 /100 WBC (0.0-0.2); Platelet Count 168 K/mm3 (150-400); RDW Coefficient Variation 20.8 % (11.7-14.2); RDW Standard Deviation 68.0 fL (35.1-46.3)
[2024-10-07 05:58] LABS: Hematocrit 17.3 % (33.0-51.0); Hemoglobin 5.6 g/dL (11.5-16.0)
[2024-10-07 06:07] LABS: Alanine Aminotransfer (ALT/SGP 79.0 U/L (12-78); Albumin, Blood 4.0 g/dL (3.4-5.0); Albumin/Globulin Ratio 1.2 (0.8-1.8); Anion Gap 13.0 mmol/L (3-11); Aspartate Aminotrans (AST/SGOT 54.0 U/L (12-37); Bilirubin, Total 0.4 mg/dL (0.1-1.0); Blood Urea Nitrogen 29.0 mg/dL (8-24); CO2, Blood 22.0 mmol/L (21-32); Calcium, Blood 8.2 mg/dL (8.5-10.1); Chloride, Blood 99.0 mmol/L (98-108); Creatinine, Blood 1.6 mg/dL (0.40-1.00); Globulin, Blood 3.4 g/dL (2.2-4.0); Glucose, Blood 113.0 mg/dL (70-99); Potassium, Blood 4.2 mmol/L (3.5-5.5); Sodium, Blood 130.0 mmol/L (136-145); Total Protein, Blood 7.4 g/dL (6.4-8.2)
[2024-10-07] MEDS ORDERED: CefTRIAXone Sodium 2,000 MG in NS 100 ML IV ONE (06:25)
[2024-10-07] MEDS ORDERED: NS 1,000 ML IV SCH ×3 (06:25→08:25)
[2024-10-07] MEDS ORDERED: Albuterol 2.5 MG/3 ML VIAL INH SCH (07:20)
[2024-10-07 07:29] LABS: Magnesium, Blood 2.3 mg/dL (1.6-2.4); Phosphorus, Blood 3.5 mg/dL (2.5-4.9)
[2024-10-07 07:53] LABS: Influenza A, PCR NEGATIVE (NEGATIVE); Influenza B, PCR NEGATIVE (NEGATIVE); Resp Syncytial Virus, PCR NEGATIVE (NEGATIVE); SARS-Cov-2 (COVID-19) PCR, MMC NEGATIVE (NEGATIVE)
[2024-10-07] MEDS ORDERED: Ipratropium/Albuterol SulF 2.5-0.5MG/3 ML Amp INH PRN ×2 (08:05→14:15)
[2024-10-07] MEDS ORDERED: Ondansetron HCl 2 MG / ML 2ML Vial IV PRN (08:10)
[2024-10-07] MEDS ORDERED: Piperacillin/Tazobactam Sod 3.375 GM in NS 100 ML IV ONE ×2 (08:20→12:30)
[2024-10-07] MEDS ORDERED: Enoxaparin 30 MG/0.3 ML SYR SC SCH (09:00)
[2024-10-07] MEDS ORDERED: JAKAFI10 MG PO (09:41)
[2024-10-07] MEDS ORDERED: NEURONTIN300 MG PO (09:43)
[2024-10-07] MEDS ORDERED: Afeditab Cr30 MG PO (09:43)
[2024-10-07] MEDS ORDERED: FLUTICASONE-SA1 EAC9 INH (09:46)
[2024-10-07] MEDS ORDERED: Furosemide 10 MG / ML 2ML Vial IV ONE (11:55)
[2024-10-07] MEDS ORDERED: LORazepam 2 MG/ML 1ML Injection IV ONE (11:55)
[2024-10-07] MEDS ORDERED: LORazepam 2 MG/ML 1ML Injection IV STA (12:34)
[2024-10-07] MEDS ORDERED: LORazepam 2 MG / ML 10ML Vial IV ONE (12:35)
[2024-10-07] MEDS ORDERED: Albuterol 2.5 MG/3 ML VIAL INH PRN (12:40)
[2024-10-07 12:45] LABS: pH Blood Arterial 7.04 (7.35-7.45)
[2024-10-07] MEDS ORDERED: Ipratropium/Albuterol SulF 2.5-0.5MG/3 ML Amp INH SCH ×3 (12:45→15:55)
--- NOTE | 2024-10-07 12:45 | NUR ---
PT ARRIVED IN THE UNIT VIA STRETCHER FROM ED TO PCU 01 AT APPROX 11AM. PT TRANSFERRED VIA SLIDER SHEET, PT IS ON 4L OF O2 VIA NASAL CANNULA. NOTICED SOME AUDIBLE CRACKLES AND SOB DURING TRANSFER. PT CONTINUES TO WORKO HARD ON BREATHING RR WENT UP TO 20-30S. SATS IN THE 87-88% O2 TURNED UP TO 8L, RT WAS CALLED FOR A BREATHING TREATMENT WITH NO HELP. PT STARTED GETTING ANXIOUS AND RESTLESS IN BED TRIPODING TO BREATHE, ORDER RECEIVED FOR BIPAP. PT WAS ALSO GIVEN 0.25MG IV ATIVAN AND IV LASIX 20MG ONE TIME DOSE, ALSO ORDERED BNP, AWAITING FOR RESULT. PT WAS ABLE TO CALM DOWN BUT STILL STRUGGLING WITH BREATHING, PT UNABLE TO MAINTAIN SATS WITH SETTINGS 13/8 100% FIO2. SATS AT 84%. CALLED MD AGAIN ORDER RECEIVED FRO ABG STAT, RT MADE AWARE. THIS RN CALLED FOR PHYSICIAN/ALLERGY/IMMUNOLOGY PT STARTED GETTING UNRESPONSIVE. [facility] ICU BLUE CRABBER AND MIRI CAME TO ASSESS PT AND DECIEDED TO TRANSFER PT TO ICU FOR EMERGENT INTUBATION. JOSELO WARPMAN CALLED FAMILY, BEDSIDE REPORT GIVEN TO FRANCISCO MCGEE. ALL BELONGINGS SENT WITH THE PT
--- NOTE | 2024-10-07 12:52 | NUR ---
SEED CLEANER/INTUBATION Arrival to ICU 7 at 1252 for acute respiratory distress and failure. Dr Leon at bedside. On BiPAP 30/10 and 100% FiO2. SpO2 90-91%. Pt unresponsive. supervisor knitting attempted to reach family, left message. 1256 - 2 G magnesium given from crash cart per v/o Dr Leon. 40 mg lasix and and 125 mg solumedrol given per MAR documentation. 1310 - Large bolus of frothy secretions suctioned from oropharynx. Decision made to proceed with intubation. 50 mcg fentanyl given per MAR, v/o Dr Leon 1316 - 60 mg propofol given. 1317 - 50 mg rocuronium given 1319 - successful intubation, #7.5 ETT, 23 cm at teeth. Bilateral breath sounds auscultated. No air over epigastrum. Appropriate ETCO2 waveform. ETCO2 45. ogt placed at 55cm, verbal from Dr. Leon after review of XR that ogt placement is appropriate.
--- NOTE | 2024-10-07 12:56 | NUR ---
"Spiritual Care | Rapid Response Responded to PC1 and supported staff in the hallway outside the room. Pt. is transported to ICU7. Will remain available to the Pt. and Staff."
--- NOTE | 2024-10-07 13:05 | NUR ---
Patient transfered to ICU 7 from PCU 1. Family notified of ROOM ATTENDANT Adin (SON and health care directive [phone]) S.O. Eric Huffman [phone] alternate directive daughter Jayden Murphy [phone] per son Adin.
[2024-10-07] MEDS ORDERED: FentaNYL Citrate 50 MCG/ML 2 ML Injection ONE (13:13)
[2024-10-07] MEDS ORDERED: FentaNYL Citrate 50 MCG/ML 2 ML Injection IV ONE ×2 (13:15→14:55)
[2024-10-07] MEDS ORDERED: NS 250 ML IV PRN (14:10)
[2024-10-07] MEDS ORDERED: Cefepime HCl 1,000 MG in NS 100 ML IV SCH (14:18)
[2024-10-07] MEDS ORDERED: Bumetanide 0.25 MG/ML 10ML Vial IV ONE (14:20)
[2024-10-07] MEDS ORDERED: FentaNYL Citrate 50 MCG/ML 2 ML Injection IV PRN (14:35)
[2024-10-07] MEDS ORDERED: Vancomycin (Pharmacy Consult) IV SCH (15:00)
[2024-10-07] MEDS ORDERED: Rocuronium Bromide 10 MG/ML 5ML Injection IV ONE ×5 (15:25→18:51)
[2024-10-07] MEDS ORDERED: Albuterol 2.5 MG/3 ML VIAL INH ONE (15:30)
[2024-10-07] MEDS ORDERED: Propofol 10mg/ml 20 ml Vial (Procedural) IV ONE ×2 (15:48→17:04)
[2024-10-07] MEDS ORDERED: Hydrogen Peroxide 1.5 % Solution MT SCH (16:00)
[2024-10-07] MEDS ORDERED: NS IV SCH (16:25)
[2024-10-07] MEDS ORDERED: CISATRACURIUM BESYLATE IV SCH (16:25)
[2024-10-07] MEDS ORDERED: Cisatracurium Besylate 100 MG in NS 50 ML IV PRN (16:35)
[2024-10-07] MEDS ORDERED: MAGNESIUM SULFATE 4.06 MEQ/ML IV ONE (17:04)
[2024-10-07] MEDS ORDERED: Phenylephrine HCl 40 MCG/ML-NS 10MLSYR (0.4MG/ML) IV ONE (17:04)
--- NOTE | 2024-10-07 18:23 | NUR ---
SHIFT SUMMARY PT REMAINS INTUBATED AND SEDATED. NOT FOLLOWING COMMANDS OR MAKING PURPOSEFUL MOVEMENTS. NIMBEX INFUSING AT 1 MCG/KG/MIN, PROPOFOL INFUSING AT 65 MCG/KG/HR, FENTANYL INFUSING AT 75 MCG/HR. NIMBEX TITRATED TO MAINTAIN BIS OF 40-60. TOF COMPLETED c MED INITIATION, SEE FLOW SHEET. CONTINUOUS CARDIAC MONITORING SHOWS SR, INITIALLY HYPERTENSIVE UPON ADMIT TO UNIT BUT BP IS NOW STABLE. VENT SETTINGS A/C VC 22/325/13/80% c O2 SATURATIONS > 92%. SPUTUM CX NEEDED. NO BM THIS SHIFT. OGT TO LIS. LITTLE PATENT AND DRAINING TO GRAVITY. DIURESED THIS SHIFT. BRUISE TO R HIP AND R AXILLA, SEE PHOTOS IN CHART. PICC LINE INFUSING. PER DR. GUERRA, HOLD UNIT OF [facility] PENDING LABS. WILL CONTINUE TO MONITOR AND REPORT TO ONCOMING RN.
[2024-10-07 19:01] LABS: pH Blood Venous 7.26 (7.34-7.37)
[2024-10-07 19:05] LABS: Hematocrit 23.0 % (33.0-51.0); Hemoglobin 7.2 g/dL (11.5-16.0)
[2024-10-07] MEDS ORDERED: Cetylpyridinium Chloride 1 EA MISC MT SCH (20:00)
--- NOTE | 2024-10-07 22:13 | NUR ---
ASSUMPTION OF CARE/ASSESSMENT: ASSUMMED CARE OF PT AT 190; BEDSIDE SHIFT REPORT RECIEVED FROM FRANCISCO MCGEE. PT IS INTUBATED, SEDATED AND PARALYZED. TOF 1/4, BIZ 60'S, NIMBEX GTT @ 1 MCG/KG/MIN, PROPOFOL GTT @ 65 MCG/KG/HR AND FENTANYL @ 75 MCG/HR. VENT SETTINGS AC/VC 22/325/10/40%, LUNGS CLEAR WITH DIM BASES AND SPO2 96<. PT SR ON MONITOR WITH HR 80'S, SBP 150'S. PT HAS OGT TO LIS WITH DRAK GREEN OUTPUT NOTED. TEMP LITTLE PATENT AND DRAINING TO GRAVITY; URINE CLEAR, LIGHT YELLOW. AFEBRILE AT THIS TIME. PT SKIN OVERALL INTACT WITH TWO BRUISES NOTED AND PICTURES LOCATED IN CHART. DR. GUERRA UPDATED ON 1899 LABS; NO NEW ORDERS AT THIS TIME. PICC TO LEDY THAT IS PATENT/INFUSING, PIV TO RFA THAT IS PATENT/INFUSING.
[2024-10-08] VITALS (79 sets, daily range): BP systolic 89–167; BP diastolic 33–57
--- NOTE | 2024-10-08 00:12 | NUR ---
PT UPDATE: SPOKE TP REGARDING CONCERNS WITH SEDATION. BIZ 70-80'S DESPITE PROPOFOL GTT @ 65 MCG AND FENTANYL @ 100MCG. PER PROVIDER, TITRATE FENTANYL GTT TO 150 MCG/HR.
[2024-10-08 03:42] LABS: Hematocrit 19.8 % (33.0-51.0); Hemoglobin 6.3 g/dL (11.5-16.0); Mean Corpuscular HGB Conc 31.8 g/dL (31.5-36.5); Mean Corpuscular Volume 93 fL (80-100); NRBC ABSOLUTE 0.13 K/mm3 (0.00-0.02); NRBC Auto 2.1 /100 WBC (0.0-0.2); Platelet Count 118 K/mm3 (150-400); RDW Coefficient Variation 19.0 % (11.7-14.2); RDW Standard Deviation 63.6 fL (35.1-46.3)
[2024-10-08 04:02] LABS: BAND PERCENT MAN 44 % (0-8); BASOPHILS ABSOLUTE MAN 0.00 K/mm3 (0.00-0.23); BASOPHILS PERCENT MAN 0 % (0-2); EOSINOPHILS ABSOLUTE MAN 0.00 K/mm3 (0.00-0.68); EOSINOPHILS PERCENT MAN 0 % (0-6); LYMPHOCYTES ABSOLUTE MAN 0.24 K/mm3 (0.84-5.20); LYMPHOCYTES PERCENT MAN 4 % (21-46); MONOCYTES ABSOLUTE MAN 0.06 K/mm3 (0.16-1.47); MONOCYTES PERCENT MAN 1 % (4-13); MYELOCYTE ABSOLUTE MAN 0.12 K/mm3 (0.00-0.00); MYELOCYTE PERCENT MAN 2 % (0-0); NEUTROPHILS ABSOLUTE MAN 5.63 K/mm3 (1.96-9.15); SEG NEUTROPHILS PERCENT MAN 49 % (41-73)
[2024-10-08 04:03] LABS: Alanine Aminotransfer (ALT/SGP 48 U/L (12-78); Albumin, Blood 2.7 g/dL (3.4-5.0); Albumin/Globulin Ratio 0.8 (0.8-1.8); Anion Gap 14 mmol/L (3-11); Aspartate Aminotrans (AST/SGOT 29 U/L (12-37); Bilirubin, Total 0.4 mg/dL (0.1-1.0); Blood Urea Nitrogen 33 mg/dL (8-24); CO2, Blood 20 mmol/L (21-32); Calcium, Blood 7.2 mg/dL (8.5-10.1); Chloride, Blood 104 mmol/L (98-108); Creatinine, Blood 2.59 mg/dL (0.40-1.00); Globulin, Blood 3.3 g/dL (2.2-4.0); Glucose, Blood 292 mg/dL (70-99); Potassium, Blood 3.6 mmol/L (3.5-5.5); Sodium, Blood 134 mmol/L (136-145); Total Protein, Blood 6.0 g/dL (6.4-8.2); Vancomycin, Random 28.1 ug/mL
--- NOTE | 2024-10-08 05:06 | NUR ---
PROVIDER CONTACT: DR. GUERRA NOTIFIED REGARDING MORNING LABS. HBG DOWN TO 6.3, CBG 292 AND CALCIUM 7.2. ORDERS FOR INSULIN MED SC AND 2 G CALCIUM GLUCAONATE ORDERED. PER PROVIDER WE ARE HOLDING OFF ON TRANSFUSING MORE BLOOD, DISCUSSED WITH VIRGIE COREA RN.
--- NOTE | 2024-10-08 05:39 | NUR ---
SHIFT SUMMARY: NO CHANGES SINCE PREVIOUS NOTE. PT REMAINS SEDATED/PARALYZED/INTUBATED. VENT SETTINGS AC/VC 22/325/10/30%. NIMBEX @ 1.25 MG/KG/MIN, PROPOFOL @ 40 MCG/KG/HR, LEVO @ 3 MCG/MIN, AND FENTANYL @ 150 MCG/HR. TOF 2/4, BIZ 60'S. OGT TO LIS WITH GREEN BILE NOTED, NO BM THIS SHIFT. TEMP LITTLE PATENT AND DRAINING TO GRAVITY. PICC TO LEDY AND PIV TO RFA THAT ARE PATENT AND INFUSING. WILL REPORT OFF TO ONCOMING RN.
[2024-10-08] MEDS ORDERED: Insulin Human Lispro 100 Units/ML 3ML Syringe SC SCH (06:00)
[2024-10-08 15:22] LABS: Influenza A/2009-H1 Not Detected (NOT DETECT); SARS-Cov-2 (COVID-19), BioFire Not Detected (NOT DETECT)
--- NOTE | 2024-10-08 18:15 | NUR ---
SUMMARY PT IS INTUBATED, SEDATED, AND ON NIMBEX. TOF 2-3 AND BIS 45-60 ON PROPOFOL AND FENTANYL. PT TOLERATING VENTILATOR. PT GOT ONE UNIT OF [facility]'S TODAY AND DID NOT HAVE ANY REACTION TO IT. VENT SETTINGS IMPROVED TODAY, PEEP DOWN TO 5, FIO2 30%. TITRATING NIMBEX OFF TONIGHT. FAMILY AT BEDSIDE TODAY, DR. GUERRA UPDATED THEM.
[2024-10-09] VITALS (84 sets, daily range): BP systolic 106–192; BP diastolic 47–98
[2024-10-09 05:30] LABS: Hematocrit 20.9 % (33.0-51.0); Hemoglobin 7.1 g/dL (11.5-16.0); Mean Corpuscular HGB Conc 34.0 g/dL (31.5-36.5); Mean Corpuscular Volume 89 fL (80-100); NRBC ABSOLUTE 0.26 K/mm3 (0.00-0.02); NRBC Auto 3.4 /100 WBC (0.0-0.2); Platelet Count 133 K/mm3 (150-400); RDW Coefficient Variation 18.5 % (11.7-14.2); RDW Standard Deviation 59.4 fL (35.1-46.3)
[2024-10-09 05:51] LABS: Alanine Aminotransfer (ALT/SGP 42 U/L (12-78); Albumin, Blood 2.5 g/dL (3.4-5.0); Albumin/Globulin Ratio 0.7 (0.8-1.8); Anion Gap 14 mmol/L (3-11); Aspartate Aminotrans (AST/SGOT 24 U/L (12-37); Bilirubin, Direct 0.2 mg/dL (0.0-0.3); Bilirubin, Indirect 0.2 mg/dL (0.1-0.7); Bilirubin, Total 0.4 mg/dL (0.1-1.0); Blood Urea Nitrogen 50 mg/dL (8-24); CO2, Blood 19 mmol/L (21-32); Calcium, Blood 8.1 mg/dL (8.5-10.1); Chloride, Blood 108 mmol/L (98-108); Creatinine, Blood 2.99 mg/dL (0.40-1.00); Globulin, Blood 3.8 g/dL (2.2-4.0); Glucose, Blood 141 mg/dL (70-99); Magnesium, Blood 3.0 mg/dL (1.6-2.4); Potassium, Blood 3.9 mmol/L (3.5-5.5); Sodium, Blood 137 mmol/L (136-145); Total Protein, Blood 6.3 g/dL (6.4-8.2); Vancomycin, Random 19.3 ug/mL
--- NOTE | 2024-10-09 05:51 | NUR ---
SHIFT SUMMERY PT REMAINS INTUBATED AND SEDATED (PROPOFOL AND FENTANYL-SEE [facility]). NIMBEX WAS WEANED OFF AT THE BEGINNING OF THE SHIFT, PT HAS TOLERATED WELL. SHE DOES BECOME AGITATED W/STIMULATION. SHE WILL OPEN HER EYES AND MOVES ALL EXTREMITIES BUT IS NOT FOLLOWING DIRECTIONS. OG TUBE TO ILWS, GREEN BILE DRAINAGE. AFEBRILE. SR ON THE PEANUT ROASTER. LITTLE CATHETER INTACT PATENT AND DRAINING YELLOW URINE TO GRAVITY. NO BM THIS SHIFT.
[2024-10-09 05:52] LABS: BAND PERCENT MAN 11 % (0-8); BASOPHILS ABSOLUTE MAN 0.00 K/mm3 (0.00-0.23); BASOPHILS PERCENT MAN 0 % (0-2); EOSINOPHILS ABSOLUTE MAN 0.00 K/mm3 (0.00-0.68); EOSINOPHILS PERCENT MAN 0 % (0-6); LYMPHOCYTES ABSOLUTE MAN 0.45 K/mm3 (0.84-5.20); LYMPHOCYTES PERCENT MAN 6 % (21-46); MONOCYTES ABSOLUTE MAN 0.37 K/mm3 (0.16-1.47); MONOCYTES PERCENT MAN 5 % (4-13); NEUTROPHILS ABSOLUTE MAN 6.72 K/mm3 (1.96-9.15); SEG NEUTROPHILS PERCENT MAN 78 % (41-73)
[2024-10-09 05:55] LABS: Phosphorus, Blood 7.1 mg/dL (2.5-4.9)
[2024-10-09] MEDS ORDERED: SODIUM BICARB IV SCH (08:00)
[2024-10-09] MEDS ORDERED: SODIUM CHLORIDE 0.45% IV SCH (08:00)
[2024-10-09] MEDS ORDERED: LORazepam 2 MG/ML 1ML Injection IV PRN (12:25)
[2024-10-09 15:23] LABS: Vancomycin, Random 16.8 ug/mL
[2024-10-09 15:42] LABS: U Amphetamine Screen Not Detected; U Barbituate Screen Not Detected; U Benzodiazapine Screen DETECTED; U Buprenorphine Screen Not Detected; U Cannabinoids Screen Not Detected; U Cocaine Screen Not Detected; U Methadone Screen Not Detected; U Methamphetamine Screen Not Detected; U Opiates Screen Not Detected; U Oxycodone Screen Not Detected; U Phencyclidine Screen Not Detected
[2024-10-09] MEDS ORDERED: Labetalol HCL 5 MG/ML 4ML Injection (Single Dose) IV ONE (17:00)
--- NOTE | 2024-10-09 18:16 | NUR ---
SHIFT SUMMARY PT IS CURRENTLY INTUBATED, SEDATED AND UNDER PARALYTIC (NIMBEX). T/O THE MORNING PRIOR TO PARALYTIC INITIATION SHE WAS FIGHTING THE VENT RESULTING IN DESATTING INTO THE LOW TEENS. PER DR GUERRA THIS PT WAS STARTED ON NIMBEX TO ADJUNCT VENTILATOR COMPLIANCE; BIS MONITOR HAS BEEN PLACED AND USING TO MONITOR SEDATION, ALONG WITH TOF TO MONITOR PARALYTIC. TUBE FEED WAS INITIATED AND THEN PAUSED WHEN PT BEGAN TO REGURGITATE FLUIDS INTO ETT (HAS NOT BEEN RESUMED AT THIS TIME). PT BP HAS BEEN CLIMBING T/O THE DAY DUE TO UNKNOWN CAUSE; DR GUERRA NOTIFIED AND 1X DOSE OF LABETALOL GIVEN IV @ 1700, THIS DID NOT RESOLVE THE HTN; DR GUERRA IS AWARE AND WANTS TO CONTINUE MONITORING. PT O2 SATS HAVE BEEN STABLE >95% SINCE PARALYTIC INITIATION. MILD ABDOMINAL DISTENTION NOTED. LITTLE CATHETER IN PLACE, PATENT, AND DRAINING TO GRAVITY. FAMILY IS INVOLVED AND WERE AT BEDSIDE T/O THE MORNING.
[2024-10-09] MEDS ORDERED: Labetalol HCL 5 MG/ML 4ML Injection (Single Dose) IV PRN (20:25)
[2024-10-09] MEDS ORDERED: Sodium Bicarb 8.4% Inj 150 MEQ in Dextrose 5% 1,000 ML IV SCH (21:00)
[2024-10-09 23:22] LABS: Source, Urine Foley catheter
[2024-10-09 23:40] LABS: Bilirubin, Urine Neg (Neg); Glucose Qualitative, Urine Neg (Neg); Ketones, Urine Neg (Neg); Leukocyte Esterase, Urine Neg (Neg); Protein, Urine 3+ (Neg); Specific Gravity, Urine 1.020 (1.003-1.022); Urobilinogen, Urine NORM (Normal)
[2024-10-09 23:55] LABS: Color, Urine Yellow (P-Yellow)
[2024-10-09 23:56] LABS: White Blood Cells, Urine 0-2 /hpf (0-5)
[2024-10-10] VITALS (84 sets, daily range): BP systolic 121–198; BP diastolic 47–93
[2024-10-10] MEDS ORDERED: NiCARdipine HCL 50 MG in NS 250 ML IV SCH (01:20)
--- NOTE | 2024-10-10 01:20 | NUR ---
PT UPDATE: CALL PLACED TO DR GUERRA DUE TO PTS SBP CONTINUING TO INCREASE DESPITE LABATOLOL INTERVENTION. NEW ORDERS OBTAINED.
[2024-10-10 02:45] LABS: pH Blood Venous 7.38 (7.34-7.37)
--- NOTE | 2024-10-10 03:30 | NUR ---
PT UPDATE: PT BEGAN COUGHING AND STACKING BREATHS W/VENT. VENT ALARMING. RN AT BEDSIDE W/RT ARRIVING SHORTLY AFTER. NIMBEX TITRATED UNTIL PT WAS COMPLIANT W/VENT. SEE FLOWSHEET. PT SATS MAINTAINED T/O.
[2024-10-10 04:45] LABS: Hematocrit 25.5 % (33.0-51.0); Hemoglobin 8.6 g/dL (11.5-16.0); Mean Corpuscular HGB Conc 33.7 g/dL (31.5-36.5); Mean Corpuscular Volume 90 fL (80-100); NRBC ABSOLUTE 0.36 K/mm3 (0.00-0.02); NRBC Auto 3.1 /100 WBC (0.0-0.2); Platelet Count 159 K/mm3 (150-400); RDW Coefficient Variation 18.3 % (11.7-14.2); RDW Standard Deviation 58.7 fL (35.1-46.3)
[2024-10-10 05:11] LABS: Anion Gap 12 mmol/L (3-11); Blood Urea Nitrogen 60 mg/dL (8-24); CO2, Blood 25 mmol/L (21-32); Calcium, Blood 7.6 mg/dL (8.5-10.1); Chloride, Blood 105 mmol/L (98-108); Creatinine, Blood 2.59 mg/dL (0.40-1.00); Glucose, Blood 158 mg/dL (70-99); Potassium, Blood 3.9 mmol/L (3.5-5.5); Sodium, Blood 138 mmol/L (136-145); Triglycerides 392 mg/dL (30-160)
--- NOTE | 2024-10-10 07:29 | NUR ---
SHIFT SUMMARY: PT REMAINS INTUBATED/SEDATED/PARALYZED. PT UNRESPONSIVE. BIS 40. TMAX 99.9 W/PT TEMPS LOWERING INTO LOW 96 AT END OF SHIFT. WARM BLANKETS AND BEAR HUGGER PLACED. VENT SETTINGS 18/325/9/50%. SATS >90%. PT REQUIRED CHANGE TO VENT SETTINGS T/O THE NIGHT W/ SUPPORT OF 100%FIO2 INTERMITTENTLY DUE TO EPISODES WHERE SHE WOULD DE-SAT INTO THE LOW 80%. SOMETIME AROUNT 0300 THIS MORNING, PT REQUIRED ADDITIONAL SEDATION/PARALYTIC TO MAINTAIN HER COMPLIANT W/ THE VENT SHE WAS COUGHING AND PIGGY-BACKING HER BREATHS. SEE TITRATIN FLOW SHEET. PT SBP STABLE. NICARDIPINE GTT STARTED DURING SHIFT DUE TO SBP >190. PER DR GUERRA, PARAMETERS TO TITRATE TO MAINTAIN SBP BETWEEN 165-170. SEE GTT FLOW SHEET FOR TITRATIONS. PT HR REMAINS SINUS TACH. ABD MILDLY DISTENDED W/ BT HYPOACTIVE X4. TEMP LITTLE IN PLACE, PATENT, DRAINING TO GRAVITY. PT HAS PICC TO LEDY. INFUSING IS PRECEDEX 1.4MCG/KG/HR, NIMBEX 2.5MCG/KG/MIN, FENTANYL 75MCG/HR, PROPOFOL 50 MCG/KG/MIN, NICARDIPINE 2MG/HR, AND BICARB AT 100ML/HR. THIS RN TO REPORT TO ONCOMING RN.
[2024-10-10] MEDS ORDERED: Ketamine HCl 100 MG / ML 5ML Vial IV ONE ×2 (11:05→13:10)
[2024-10-10] MEDS ORDERED: Albuterol 2.5 MG/3 ML VIAL INH ONE (13:10)
[2024-10-10] MEDS ORDERED: Magnesium Sulf 2 GM/Water 50ML 50 ML IV ONE (13:35)
[2024-10-10] MEDS ORDERED: Ketamine HCL 100 MG in NS 100 ML IV SCH (14:00)
--- NOTE | 2024-10-10 17:36 | NUR ---
SHIFT SUMMARY PT REMAINS INTUBATED & SEDATED. PARALYTIC TURNED OFF THIS AM. SEDATED WITH PRECEDEX, FENTANYL, AND KETAMINE c RASS OF -4, SEE FLOWSHEET FOR TITRATIONS. VENT SETTINGS NOW SPONT 10/5 @ 30% c SATS >90%. OGT TO LIS c GREEN SECRETIONS. TEMP PROBE LITTLE DRAINING YELLOW URINE, AFEBRILE. PTS FAMILY UPDATED AT BEDSIDE T/O THE DAY.
[2024-10-11] VITALS (95 sets, daily range): BP systolic 113–189; BP diastolic 50–157
[2024-10-11 04:33] LABS: BASOPHILS ABSOLUTE AUTO 0.04 K/mm3 (0.00-0.23); BASOPHILS PERCENT AUTO 0 % (0-2); EOSINOPHILS ABSOLUTE AUTO 0.18 K/mm3 (0.00-0.68); EOSINOPHILS PERCENT AUTO 1 % (0-6); Hematocrit 23.6 % (33.0-51.0); Hemoglobin 7.8 g/dL (11.5-16.0); IMMATURE GRAN ABSOLUTE AUTO 0.61 K/mm3 (0.00-0.10); IMMATURE GRAN PERCENT AUTO 5 % (0-1); LYMPHOCYTES ABSOLUTE AUTO 0.22 K/mm3 (0.84-5.20); LYMPHOCYTES PERCENT AUTO 2 % (21-46); MONOCYTES ABSOLUTE AUTO 0.62 K/mm3 (0.16-1.47); MONOCYTES PERCENT AUTO 5 % (4-13); Mean Corpuscular HGB Conc 33.1 g/dL (31.5-36.5); Mean Corpuscular Volume 90 fL (80-100); NEUTROPHILS ABSOLUTE AUTO 10.80 K/mm3 (1.96-9.15); NEUTROPHILS PERCENT AUTO 87 % (41-73); NRBC ABSOLUTE 0.20 K/mm3 (0.00-0.02); NRBC Auto 1.6 /100 WBC (0.0-0.2); Platelet Count 150 K/mm3 (150-400); RDW Coefficient Variation 18.2 % (11.7-14.2); RDW Standard Deviation 58.7 fL (35.1-46.3)
[2024-10-11 04:56] LABS: Albumin, Blood 2.6 g/dL (3.4-5.0); Anion Gap 10 mmol/L (3-11); Blood Urea Nitrogen 56 mg/dL (8-24); CO2, Blood 31 mmol/L (21-32); Calcium, Blood 7.7 mg/dL (8.5-10.1); Chloride, Blood 104 mmol/L (98-108); Creatinine, Blood 2.11 mg/dL (0.40-1.00); Glucose, Blood 151 mg/dL (70-99); Phosphorus, Blood 5.0 mg/dL (2.5-4.9); Potassium, Blood 3.4 mmol/L (3.5-5.5); Sodium, Blood 142 mmol/L (136-145); Total Iron Binding Capacity 191 ug/dL (250-450)
--- NOTE | 2024-10-11 06:08 | NUR ---
SHIFT SUMMARY: PT REMAINS INTUBATED & SEDATED. PARALYTIC REMAINS OFF SINCE YESTERDAY DAY SHIFT. PT SEDATED W/ PRECEDEX, FENTANYL, AND KETAMINE. RASS -4. PT CONTINUES TO BE VERY REACTIVE TO ANY PHYSICAL STIMULATION/CARE. PT DID HAVE A COUPLE EPISODES OF RESTLESSNESS-SHE REQUIRED ATIVAN PRN ONCE DUE TO PT ATTEMPTING TO PULL AT TUBE, PULLING AT RESTRAINTS AND CORDS/LINES. PT UNABLE TO BE RE-DIRECTED. PT OPENED EYES, NO EYE CONTACT MADE, EYES SLUGGISH. VENT SETTINGS REMAIN SPONT 10/5 FIO2 30%. SATS>90%. OGT TO LOW INTERMITTENT SUCTION, CONTINUES TO HAVE GREEN SECRETIONS. ABD DISTENDED W/ BT HYPOACTIVE T/O. TEMP LITTLE IN PLACE REMAINS PATENT. PT HAS PIV TO RFA AND PICC TO LEDY. SEE FLOWSHEET FOR GTT TITRATIONS. THIS RN TO REPORT TO ONCOMING RN.
[2024-10-11 10:45] LABS: pH Blood Venous 7.46 (7.34-7.37)
[2024-10-11] MEDS ORDERED: Diazepam 5 MG / ML 2ML SYR IV PRN (11:25)
[2024-10-11] MEDS ORDERED: Docusate Sodium Liquid 100 MG UDC PT PRN (11:25)
[2024-10-11] MEDS ORDERED: Magnesium Hydroxide Conc 10 ML UDC PT PRN (11:25)
[2024-10-11] MEDS ORDERED: Diazepam 5 MG / ML 2ML SYR IV SCH (12:00)
--- NOTE | 2024-10-11 18:31 | NUR ---
END OF SHIFT SUMMARY PT SEDATED WITH PRECEDEX INFUSING AT 1.4MCG/KG/HR, FENTANYL PLACED ON SB THIS SHIFT, AND KETAMINE INFUSING AT 0.2MG/KG/HR; RASS EITHER -4 OR +2, CHALLENGING TO SEDATE AT TIMES, PRN AND SCHEDULED DIAZAPAM ORDERED; ANSWERING Y/N QUESTIONS WITH HEAD NODS, PARSONS. VENT SETTINGS CHANGED THIS AM FROM SPONT TO AC/VC+ 15/350/10/30%. NSR WITH RATE 70-80'S. SBP 140-180'S; NICARDIPINE INFUSING AT 1.75MG/HR; SCHEDULED CARDIZEM STARTED TODAY. VHP STARTED VIA OG AT 25ML/HR (GOAL) WITH 30ML FLUSHES Q4HR. LITTLE IN PLACE AND DRAINING TO GRAVITY. PICC TO RUE PATENT WITH DRESSING C/D/I. WILL REPORT TO PM RN WHEN AVIALABLE.
[2024-10-11] MEDS ORDERED: Protein Supplement 30 ML UD PT SCH (21:00)
[2024-10-12] VITALS (78 sets, daily range): BP systolic 125–186; BP diastolic 50–87
[2024-10-12 05:07] LABS: BASOPHILS ABSOLUTE AUTO 0.03 K/mm3 (0.00-0.23); BASOPHILS PERCENT AUTO 0 % (0-2); Hematocrit 23.4 % (33.0-51.0); Hemoglobin 7.6 g/dL (11.5-16.0); LYMPHOCYTES ABSOLUTE AUTO 0.37 K/mm3 (0.84-5.20); LYMPHOCYTES PERCENT AUTO 3 % (21-46); MONOCYTES ABSOLUTE AUTO 0.58 K/mm3 (0.16-1.47); MONOCYTES PERCENT AUTO 5 % (4-13); Mean Corpuscular HGB Conc 32.5 g/dL (31.5-36.5); Mean Corpuscular Volume 93 fL (80-100); NRBC ABSOLUTE 0.21 K/mm3 (0.00-0.02); NRBC Auto 1.7 /100 WBC (0.0-0.2); Platelet Count 151 K/mm3 (150-400); RDW Coefficient Variation 18.5 % (11.7-14.2); RDW Standard Deviation 61.6 fL (35.1-46.3)
[2024-10-12 05:09] LABS: EOSINOPHILS ABSOLUTE AUTO 0.00 K/mm3 (0.00-0.68); EOSINOPHILS PERCENT AUTO 0 % (0-6); IMMATURE GRAN ABSOLUTE AUTO 0.86 K/mm3 (0.00-0.10); IMMATURE GRAN PERCENT AUTO 7 % (0-1); NEUTROPHILS ABSOLUTE AUTO 10.28 K/mm3 (1.96-9.15); NEUTROPHILS PERCENT AUTO 85 % (41-73)
[2024-10-12 05:30] LABS: Alanine Aminotransfer (ALT/SGP 142 U/L (12-78); Albumin, Blood 2.5 g/dL (3.4-5.0); Albumin/Globulin Ratio 0.7 (0.8-1.8); Anion Gap 11 mmol/L (3-11); Aspartate Aminotrans (AST/SGOT 59 U/L (12-37); Bilirubin, Total 0.5 mg/dL (0.1-1.0); Blood Urea Nitrogen 65 mg/dL (8-24); CO2, Blood 28 mmol/L (21-32); Calcium, Blood 7.8 mg/dL (8.5-10.1); Chloride, Blood 109 mmol/L (98-108); Creatinine, Blood 1.83 mg/dL (0.40-1.00); Globulin, Blood 3.4 g/dL (2.2-4.0); Glucose, Blood 187 mg/dL (70-99); Magnesium, Blood 2.9 mg/dL (1.6-2.4); Phosphorus, Blood 4.0 mg/dL (2.5-4.9); Potassium, Blood 3.5 mmol/L (3.5-5.5); Sodium, Blood 144 mmol/L (136-145); Total Protein, Blood 5.9 g/dL (6.4-8.2); Triglycerides 194 mg/dL (30-160)
[2024-10-12 05:35] LABS: BASOPHILS ABSOLUTE MAN 0.00 K/mm3 (0.00-0.23); BASOPHILS PERCENT MAN 0 % (0-2); EOSINOPHILS ABSOLUTE MAN 0.00 K/mm3 (0.00-0.68); EOSINOPHILS PERCENT MAN 0 % (0-6); LYMPHOCYTES % ATYPICAL MANUAL 1 % (0-0); LYMPHOCYTES ABSOLUTE MAN 0.48 K/mm3 (0.84-5.20); LYMPHOCYTES PERCENT MAN 3 % (21-46); METAMYELOCYTE ABSOLUTE MAN 0.60 K/mm3 (0.00-0.00); METAMYELOCYTE PERCENT MAN 5 % (0-0); MONOCYTES ABSOLUTE MAN 0.60 K/mm3 (0.16-1.47); MONOCYTES PERCENT MAN 5 % (4-13); NEUTROPHILS ABSOLUTE MAN 10.42 K/mm3 (1.96-9.15); SEG NEUTROPHILS PERCENT MAN 86 % (41-73)
--- NOTE | 2024-10-12 06:22 | NUR ---
SHIFT SUMMARY: NO ACUTE CHANGES T/O THE NIGHT. PT REMAINS SEDATED/INTUBATED. PT OPENS EYES AT TIMES, PULLS AT RESTRAINTS, AND MOVES ALL EXTREMITIES EQUALLY. SHE DID NOT FOLLOW COMMANDS THIS SHIFT. PT VENT SETTINGS REMAIN 15/350/10/30%. SATS>90%. PT HAS SMALL AMOUNTS OF RED/YELLOWISH SECRETIONS WHEN SUCTIONING. SBP STABLE. NICARDIPINE GTT TITRATED TO MAINTAIN SBP <160 PER ORDERS. SEE FLOWSHEET FOR TITRATIONS. HR SINUS-SINUS ARRYTHMIA. ABD REMAINS DISTENDED, NO BM THIS SHIFT. BT HYPOACTIVE X4. PT MANAGED TO PULL OG TUBE AT END OF SHIFT. NEW OG PLACED, GASTRIC CONTENTS ASPIRATED TO CONFIRM PLACEMENT. PT TOLERATED WELL. TEMP LITTLE IN PLACE, PATENT. THIS RN TO REPORT TO ONCOMING RN.
--- NOTE | 2024-10-12 10:29 | NUR ---
ASSUMED CARE AT 0700 THIS RN AND MIKAYLA Thomason ASSUMED CARE AT 0700. PT SEDATED AND INTUBATED AT SHIFT CHANGE. SHE IS SEDATED WITH KETAMINE, PRECEDEX, AND FENTANYL, SEE FLOWSHEET FOR TITRATIONS; RASS EITHER -3 OR +2, CHALLENGING TO SEDATE AT TIMES; PARSONS. VENT SETTINGS AC/VC 15/350/10/30%. AFEBRILE. HR 70'S. SBP 140'S; NICARDAPINE INFUSING AT 1.75MG/HR. VHP INFUSING AT GOAL VIA OG. LITTLE IN PLACE AND DRAINING TO GRAVITY. PICC TO LUE PATENT WITH DRESSING C/D/I. SEE SHIFT ASSESSMENT FOR FULL ASSESSMENT.
[2024-10-12] MEDS ORDERED: Diazepam 5 MG / ML 2ML SYR IV SCH (12:00)
--- NOTE | 2024-10-12 18:18 | NUR ---
END OF SHIFT SUMMARY NO ACUTE EVENTS THIS SHIFT. PT CONT TO BE SEDATED AND CHALLENGING TO SEDATE AT TIMES; PRECEDEX, KETAMINE, AND FENTANYL INFUSING, SEE FLOWSHEET FOR TITRATIONS; PT EITHER A RASS OF -3 OR +2; WILL FOLLOW DIRECTIONS AND ANSWER Y/N QUESTIONS OCCATIONALLY. VENT SETTINGS AC/VC 15/350/10/30%. AFEBRILE. HR 70-90'S. SBP 140-160'S; NICARDAPINE CONT TO INFUSE, UNABLE TO TITRATE DOWN THIS SHIFT; NEW ORDER FOR NORVASC TO START TONIGHT. VHP INFUSING AT GOAL VIA OG. LITTLE IN PLACE AND DRAINING TO GRAVITY. PICC TO LUE PATENT WITH DRESSING CHANGED TODAY. WILL REPORT TO PM RN WHEN AVAILABLE.
--- NOTE | 2024-10-12 20:00 | NUR ---
ASSUMPTION OF CARE CARE OF PT ASSUMED FOLLOWING BEDSIDE SHIFT REPORT FROM DAY RN. PT INTUBATED AND SEDATED ON FENTANYL 25, KETAMINE 0.25 AND PRECEDEX 1.4. RASS OF -3, THOUGH PT REPORTEDLY HAS HISTORY OF QUICK ESCALATIONS IN AROUSAL. TEMP 99.6 F. MOVES EXTREMITIES AND SO REQUIRING SOFT UPPER/WRIST BILATERAL RESTRAINTS. HR SINUS RHYTHM IN THE 70'S AND BP STABLE TO ELEVATED WITH NICARDIPINE INFUSING AT 1.75 MG/HR. GOAL IS TO TITRATE OFF NICARDIPINE AND ONTO PO/OT BP MEDS. VENT SETTINGS ACVC+ 15/350/10.0/30% WITH SMALL THICK YELLOW SECRETIONS BEING SUCTIONED FROM ETT, WHICH IS A 7.5 TUBE SET AT 20.5CM AT NARES. CURRENT SETTINGS PRODUCING 02 SAT OF 95% AND ETCO2 OF 36. LAST BM FOR PT IS UNKNOWN AND THIS NURSE WILL ESCALATE BOWEL MEDS TONIGHT. FOELY IN PLACE TO GRAVITY DRAINING PALE YELLOW URINE. SCDS IN PLACE. WILL REVIEW AND CONTINUE PLAN OF CARE.
[2024-10-13] VITALS (90 sets, daily range): BP systolic 70–222; BP diastolic 25–108
[2024-10-13] MEDS ORDERED: FentaNYL Citrate 50 MCG/ML 2 ML Injection IV ONE (04:40)
[2024-10-13 05:42] LABS: Hematocrit 24.2 % (33.0-51.0); Hemoglobin 7.5 g/dL (11.5-16.0); Mean Corpuscular HGB Conc 31.0 g/dL (31.5-36.5); Mean Corpuscular Volume 95 fL (80-100); NRBC ABSOLUTE 0.31 K/mm3 (0.00-0.02); NRBC Auto 2.4 /100 WBC (0.0-0.2); Platelet Count 150 K/mm3 (150-400); RDW Coefficient Variation 18.4 % (11.7-14.2); RDW Standard Deviation 62.5 fL (35.1-46.3)
[2024-10-13 06:01] LABS: Alanine Aminotransfer (ALT/SGP 140.0 U/L (12-78); Albumin, Blood 2.5 g/dL (3.4-5.0); Albumin/Globulin Ratio 0.8 (0.8-1.8); Anion Gap 10.0 mmol/L (3-11); Aspartate Aminotrans (AST/SGOT 46.0 U/L (12-37); Bilirubin, Total 0.4 mg/dL (0.1-1.0); Blood Urea Nitrogen 77.0 mg/dL (8-24); CO2, Blood 26.0 mmol/L (21-32); Calcium, Blood 8.0 mg/dL (8.5-10.1); Chloride, Blood 113.0 mmol/L (98-108); Creatinine, Blood 1.78 mg/dL (0.40-1.00); Globulin, Blood 3.3 g/dL (2.2-4.0); Glucose, Blood 188.0 mg/dL (70-99); Magnesium, Blood 2.7 mg/dL (1.6-2.4); Phosphorus, Blood 3.6 mg/dL (2.5-4.9); Potassium, Blood 3.6 mmol/L (3.5-5.5); Sodium, Blood 145.0 mmol/L (136-145); Total Protein, Blood 5.8 g/dL (6.4-8.2)
[2024-10-13 06:11] LABS: BAND PERCENT MAN 6 % (0-8); BASOPHILS ABSOLUTE MAN 0.00 K/mm3 (0.00-0.23); BASOPHILS PERCENT MAN 0 % (0-2); EOSINOPHILS ABSOLUTE MAN 0.00 K/mm3 (0.00-0.68); EOSINOPHILS PERCENT MAN 0 % (0-6); LYMPHOCYTES ABSOLUTE MAN 0.39 K/mm3 (0.84-5.20); LYMPHOCYTES PERCENT MAN 3 % (21-46); METAMYELOCYTE ABSOLUTE MAN 0.78 K/mm3 (0.00-0.00); METAMYELOCYTE PERCENT MAN 6 % (0-0); MONOCYTES ABSOLUTE MAN 0.91 K/mm3 (0.16-1.47); MONOCYTES PERCENT MAN 7 % (4-13); MYELOCYTE ABSOLUTE MAN 0.13 K/mm3 (0.00-0.00); MYELOCYTE PERCENT MAN 1 % (0-0); NEUTROPHILS ABSOLUTE MAN 10.79 K/mm3 (1.96-9.15); SEG NEUTROPHILS PERCENT MAN 77 % (41-73)
--- NOTE | 2024-10-13 07:37 | NUR ---
SHIFT SUMMARY PT LYING IN BED VENTILATED AND SEDATED ON 0.30 OF KETAMINE, 1.4 OF PRECEDEX, AND 25MCG/HR OR FENTANYL WITH RASS OF -3 UNTIL SHE WAKES UP AND RASS CHANGES TO +2 QUICKLY. TMAX WAS 100.2 AND IS 98.3 WITH NO INTERVENTIONS OTHER THAN FAN AT PT REQUEST. PT DID RESPOND TO QUESTIONS WITH HEAD NODS AND SHAKES. PT DOES HAVE H/O OF RESTLESS LEG SYNDROME THAT SHE NORMALLY TAKES HOME MEDS FOR BUT HAS NOT BEEN STARTED ON AT THE HOSPITAL. PT WAS IN SINUS RHYTHM ALL NIGHT, 70'S, AND BP CONTROL WAS AN ISSUE, WITH NICARDIPINE INFUSING AT 1.75 AT START OF SHIFT AND TITRATED UP TO 5 BY END. VENT SETTINGS REMAINED THE SAME, ACVC+ 15/350/10.0/30% PRODUCING SAT > 92%. SMALL THICK MAYERS/YELLOW ORAL SECRETIONS SUCTIONED FROM ETT, WHICH IS 7.5 AND 20.5 AT THE NARES. TF INFUSING AT GOAL OF 25ML/HR WITH 30ML Q 4HR WATER FLUSHES. AB DISTENDED BUT PT DENIED PAIN IN THAT AREA. COLACE GIVEN. NO BM. TEMP LITTLE IN PLACE WITH 650 ML OUTPUT ALL SHIFT. BEDSIDE SHIFT REPORT GIVEN TO DAY RN.
--- NOTE | 2024-10-13 18:40 | NUR ---
SHIFT SUMMARY PT REMAINS INTUBATED AND SEDATED. VENT SETTINGS UNCHANGED. PT TRIALED ON PRESSURE SUPPORT BREIFLY THIS MORNING. PT DID NOT TOLERATE AND HAS REMAINED ON AC SETTINGS THE REST OF THE SHIFT. PT SEDATED WITH FENTANYL AT 50 MCG/HR, PRECEDEX AT 1.4 MCG/KG/MIN, AND VALIUM PRN. KETAMINE GTT TITRATED OFF THIS SHIFT. PT WITH PERIODS OF AGITATION/RESTLESSNESS. PT ABLE TO FOLLOW SIMPLE COMMANDS AND NODS HEAD APPROPRIATELY TO SOME QUESTIONS, BUT OTHERWISE NOT REDIRECTABLE. PT BACK TO RESTING QUIETLY AFTER PERIODS OF RESTLESSNESS. PICC TO LEDY C/D/I. OGT IN PLACE WITH TF INFUSING AT GOAL RATE. LITTLE TEMP PROBE REMAINS IN PLACE WITH CLOUDY YELLOW URINE OUTPUT NOTED. PT WITH EPISODES OF HYPERTENSION WITH AGITATION, VITAL SIGNS OTHERWISE STABLE. NICARDIPINE GTT TITRATED OFF THIS SHIFT. SBW RESTRAINTS REMAIN IN PLACE. PT FAMILY AT BEDSIDE FOR SHORT TIME THIS MORNING, UPDATED BY DR GARNICA. WILL CONTINUE TO MONITOR AND REPORT OFF TO ONCOMING RN.
--- NOTE | 2024-10-13 19:00 | NUR ---
ASSUMPTION OF CARE CARE OF PT ASSUMED FOLLOWING BEDSIDE SHIFT REPORT FROM DAY RN. PT INTUBATED AND SEDATED ON FENTANYL 50, KETAMINE OFF SINCE 1030 AM, AND PRECEDEX 1.4. RASS OF -3, THOUGH PT REPORTEDLY HAS HISTORY OF QUICK ESCALATIONS IN AROUSAL. TEMP 96.6 F. MOVES EXTREMITIES AND SO REQUIRING SOFT UPPER/WRIST BILATERAL RESTRAINTS. HR SINUS RHYTHM IN THE 70'S AND BP STABLE TO ELEVATED WITH NICARDIPINE OFF SINCE NOON. . VENT SETTINGS ACVC+ 15/350/10.0/30% WITH SMALL THICK YELLOW SECRETIONS BEING SUCTIONED FROM ETT, WHICH IS A 7.5 TUBE SET AT 20.5CM AT NARES. CURRENT SETTINGS PRODUCING 02 SAT OF 95% AND ETCO2 OF 36. LAST BM FOR PT WAS TODAY. FOELY IN PLACE TO GRAVITY DRAINING PALE YELLOW URINE. SCDS IN PLACE. WILL REVIEW AND CONTINUE PLAN OF CARE.
[2024-10-14] VITALS (56 sets, daily range): BP systolic 122–199; BP diastolic 50–147
[2024-10-14] MEDS ORDERED: Gabapentin 250 MG/5 ML ORAL SYRINGE PT SCH (02:20)
--- NOTE | 2024-10-14 03:33 | NUR ---
UPDATE: PROVIDER CALLED REGARDING AT HOME RESTLESS LEG SYNDROME MEDS AND THEY WERE RESTARTED, THOUGH THE GABAPENTIN AT A SMALLER DOSE.
--- NOTE | 2024-10-14 07:15 | NUR ---
ASSUMPTION OF CARE REPORT FROM ARELY VANCE. PT IS INTUBATED AND SEDATED ON PRECEDEX 1.2MCG, FENTANYL 25MCG, AND TUBE FEED AT 25ML/HR. LITTLE AND RECTAL TUBES IN PLACE AND DRAINING TO GRAVITY. PLAN FOR POSSIBLE INTUBATION TODAY.
[2024-10-14 09:16] LABS: Hematocrit 25.3 % (33.0-51.0); Hemoglobin 7.9 g/dL (11.5-16.0); Mean Corpuscular HGB Conc 31.2 g/dL (31.5-36.5); Mean Corpuscular Volume 95 fL (80-100); NRBC ABSOLUTE 0.54 K/mm3 (0.00-0.02); NRBC Auto 3.2 /100 WBC (0.0-0.2); Platelet Count 186 K/mm3 (150-400); RDW Coefficient Variation 18.5 % (11.7-14.2); RDW Standard Deviation 63.3 fL (35.1-46.3)
[2024-10-14] MEDS ORDERED: Furosemide 10 MG / ML 2ML Vial IV ONE (09:25)
[2024-10-14 09:35] LABS: Anion Gap 12.0 mmol/L (3-11); Blood Urea Nitrogen 90.0 mg/dL (8-24); CO2, Blood 22.0 mmol/L (21-32); Calcium, Blood 8.0 mg/dL (8.5-10.1); Chloride, Blood 112.0 mmol/L (98-108); Creatinine, Blood 1.79 mg/dL (0.40-1.00); Glucose, Blood 204.0 mg/dL (70-99); Magnesium, Blood 2.4 mg/dL (1.6-2.4); Phosphorus, Blood 4.3 mg/dL (2.5-4.9); Potassium, Blood 3.2 mmol/L (3.5-5.5); Sodium, Blood 143.0 mmol/L (136-145)
[2024-10-14 10:11] LABS: BAND PERCENT MAN 8 % (0-8); BASOPHILS ABSOLUTE MAN 0.00 K/mm3 (0.00-0.23); BASOPHILS PERCENT MAN 0 % (0-2); EOSINOPHILS ABSOLUTE MAN 0.00 K/mm3 (0.00-0.68); EOSINOPHILS PERCENT MAN 0 % (0-6); LYMPHOCYTES ABSOLUTE MAN 0.50 K/mm3 (0.84-5.20); LYMPHOCYTES PERCENT MAN 3 % (21-46); METAMYELOCYTE ABSOLUTE MAN 1.18 K/mm3 (0.00-0.00); METAMYELOCYTE PERCENT MAN 7 % (0-0); MONOCYTES ABSOLUTE MAN 0.50 K/mm3 (0.16-1.47); MONOCYTES PERCENT MAN 3 % (4-13); NEUTROPHILS ABSOLUTE MAN 14.70 K/mm3 (1.96-9.15); SEG NEUTROPHILS PERCENT MAN 79 % (41-73)
[2024-10-14] MEDS ORDERED: Diazepam 5 MG / ML 2ML SYR IV SCH ×2 (12:00→18:00)
[2024-10-14] MEDS ORDERED: Labetalol HCL 5 MG/ML 20MLVIAL IV PRN (12:25)
[2024-10-14] MEDS ORDERED: HydrALAZINE HCl 20 MG / ML 1ML Vial IV PRN (12:25)
[2024-10-14] MEDS ORDERED: D5W-1/2NS KCl 20mEq 1,000 ML IV SCH (13:55)
--- NOTE | 2024-10-14 18:31 | NUR ---
SHIFT SUMMARY PT WAS EXTUBATED AT 0935, SPUTUM SAMPLE WAS COLLECTED AND SENT TO LAB. PT WAS HAVING INCREASED WOB AND AGITATION 30 MINUTES AFTER EXTUBATION AND WAS STARTED ON BIPAP WITH RT MANAGING SETTINGS -CURRENT SETTINGS 16/10 30%. FENTANYL GTT WAS D/C AND PRECEDEX IS INFUSING AT 1.2 MCG VIA PICC LINE. PT CONTINUED TO HAVE TRANSIENT AGITATION AND ANXIETY ON BIPAP WHICH WAS MANAGED WITH THE PRECEDEX GTT AND FENTANYL AND VALIUM PUSHES PER MAR. URINE OUTPUT WAS DECREASED AND A BLADDER SCAN WAS PERFORMED SHOWING 424ML OF URINE. THE LITTLE CATHETER WAS FLUSHED WITH A SUBSEQUENT OUPUT OF 1L. PT CONTINUED TO EXPERIENCE HTN IN THE 170S-180S THROUGHOUT SHIFT, ORDERS WERE PLACED FOR HYDRALAZINE AND LABETOLOL. BP IS CURRENTLY IN THE 140S-150S. RECTAL TUBE IS IN PLACE AND DRAINING TO GRAVITY WITH NO OUPUT THIS SHIFT. WILL CONTINUE TO MONITOR AND REPORT TO ONCOMING RN.
[2024-10-15] VITALS (43 sets, daily range): BP systolic 151–214; BP diastolic 59–195
[2024-10-15 03:57] LABS: Hematocrit 24.2 % (33.0-51.0); Hemoglobin 7.9 g/dL (11.5-16.0); Mean Corpuscular HGB Conc 32.6 g/dL (31.5-36.5); Mean Corpuscular Volume 93 fL (80-100); NRBC ABSOLUTE 0.29 K/mm3 (0.00-0.02); NRBC Auto 2.0 /100 WBC (0.0-0.2); Platelet Count 189 K/mm3 (150-400); RDW Coefficient Variation 18.5 % (11.7-14.2); RDW Standard Deviation 60.7 fL (35.1-46.3)
[2024-10-15 04:20] LABS: Albumin, Blood 2.6 g/dL (3.4-5.0); Anion Gap 9 mmol/L (3-11); BAND PERCENT MAN 13 % (0-8); BASOPHILS ABSOLUTE MAN 0.00 K/mm3 (0.00-0.23); BASOPHILS PERCENT MAN 0 % (0-2); Blood Urea Nitrogen 95 mg/dL (8-24); CO2, Blood 25 mmol/L (21-32); Calcium, Blood 8.0 mg/dL (8.5-10.1); Chloride, Blood 114 mmol/L (98-108); Creatinine, Blood 1.76 mg/dL (0.40-1.00); EOSINOPHILS ABSOLUTE MAN 0.00 K/mm3 (0.00-0.68); EOSINOPHILS PERCENT MAN 0 % (0-6); Glucose, Blood 213 mg/dL (70-99); LYMPHOCYTES ABSOLUTE MAN 1.02 K/mm3 (0.84-5.20); LYMPHOCYTES PERCENT MAN 7 % (21-46); METAMYELOCYTE ABSOLUTE MAN 0.14 K/mm3 (0.00-0.00); METAMYELOCYTE PERCENT MAN 1 % (0-0); MONOCYTES ABSOLUTE MAN 0.00 K/mm3 (0.16-1.47); MONOCYTES PERCENT MAN 0 % (4-13); MYELOCYTE ABSOLUTE MAN 0.29 K/mm3 (0.00-0.00); MYELOCYTE PERCENT MAN 2 % (0-0); Magnesium, Blood 2.2 mg/dL (1.6-2.4); NEUTROPHILS ABSOLUTE MAN 13.14 K/mm3 (1.96-9.15); Phosphorus, Blood 3.7 mg/dL (2.5-4.9); Potassium, Blood 2.9 mmol/L (3.5-5.5); SEG NEUTROPHILS PERCENT MAN 77 % (41-73); Sodium, Blood 145 mmol/L (136-145)
[2024-10-15] MEDS ORDERED: Potassium Chloride 60 MEQ IV SCH (05:15)
[2024-10-15] MEDS ORDERED: Potassium Chl 20MEQ/Water100ML 100 ML IV SCH (06:00)
--- NOTE | 2024-10-15 10:21 | NUR ---
ASSUMPTION OF CARE ASSUMED CARE OF PT AT 0700 WITH MARV MCGEE, RECIEVED REPORT FROM FRANCISCO MCGEE. PT IS A&0 x4, SLIGHTLY CONFUSED AT TIMES. PT IS AFEBRILE. CONTINUOUS CARDIAC MONITORING IN PLACE SHOWING NSR WITH HR IN THE 80'S, WITH A MAP >65. PT IS ON 2L NC WITH SP02 >92%. RECTAL TUBE IS IN PLACE AND DRAINING. LITTLE IS PATENT AND DRAINING TO GRAVITY. FLUSHED LITTLE WITH 100 ML OF STERILE WATER DUE TO SEDIMENT. PICC LINE IN PLACE TO LUE. PRECEDEX WAS INFUSING AT 1.2 MCG/KG/HR AT START OF SHIFT, NOW INFUSING AT 0.8 MCG/KG/HR, SEE FLOW SHEET FOR TITRATIONS. CALL LIGHT IN REACH, CARE CONTINUES.
[2024-10-15] MEDS ORDERED: Labetalol HCL 5 MG/ML 20MLVIAL IV PRN (11:35)
--- NOTE | 2024-10-15 11:48 | NUR ---
PT UPDATE ABDOMEN DISTENDED AND FIRM, BOWEL TONES HYPOACTIVE. RECTAL TUBE IN PLACE PATENT WITH LIQUID OUTPUT, LITTLE IN PLACE PATENT DRAINING TO GRAVITY. PROVIDER MADE AWARE, CARE CONTINUES.
[2024-10-15] MEDS ORDERED: HydrALAZINE HCl 20 MG / ML 1ML Vial IV PRN (12:10)
[2024-10-15] MEDS ORDERED: FentaNYL Citrate 50 MCG/ML 2 ML Injection IV PRN (12:10)
[2024-10-15] MEDS ORDERED: D5W-1/2NS KCl 20mEq 1,000 ML IV SCH (16:00)
--- NOTE | 2024-10-15 18:32 | NUR ---
SHIFT SUMMARY PT CONTINUES TO REST IN BED, ALERT AND ORIENTED X4. PT ANSWERS QUESTIONS APPROPRIATLEY, FOLLOWS DIRECTION WHEN PROMPTED AND IS ABLE TO MAKE HER NEEDS KNOWN. PT WEAK, MOVES EXTREMITIES EQUALLY BILATERALLY. PT UP IN RECLINER FOR MAJORITY OF THIS SHIFT. HR 90-110'S SINUS, PT HYPERTENSIVE SBP 160-200'S, MEDICATED PER EMAR, PROVIDER AWARE. PT ALTERNATING BETWEEN BIPAP AND RA, OXYGEN SATURATION >95%. ABDOMEN FIRM AND ROUND, NON TENDER. BOWEL TONES HYPOACTIVE, RECTAL TUBE IN PLACE WITH LIQUID BROWN OUTPUT. TEMP LITTLE IN PALCE, PATENT, IRRIGATED ONCE THIS SHIFT. PICC LINE IN PLACE TO LEDY. D5 1/2NS WITH 20KCL INFUSING AT 75MLS/HR. BED IN LOWEST POSITION, CALL LIGHT WITHIN REACH, CARE CONTINUES.
[2024-10-15] MEDS ORDERED: Nitroglycerin 1 INCH/GM PKT TOP SCH (19:00)
[2024-10-15] MEDS ORDERED: NiCARdipine HCL 50 MG in NS 250 ML IV SCH (19:05)
[2024-10-15 21:15] LABS: Anion Gap 10.0 mmol/L (3-11); Blood Urea Nitrogen 84.0 mg/dL (8-24); CO2, Blood 24.0 mmol/L (21-32); Calcium, Blood 8.7 mg/dL (8.5-10.1); Chloride, Blood 114.0 mmol/L (98-108); Creatinine, Blood 1.73 mg/dL (0.40-1.00); Glucose, Blood 128.0 mg/dL (70-99); Potassium, Blood 3.5 mmol/L (3.5-5.5); Sodium, Blood 144.0 mmol/L (136-145)
[2024-10-16] VITALS (66 sets, daily range): BP systolic 110–208; BP diastolic 54–133
[2024-10-16 05:53] LABS: BASOPHILS ABSOLUTE AUTO 0.12 K/mm3 (0.00-0.23); BASOPHILS PERCENT AUTO 1 % (0-2); EOSINOPHILS ABSOLUTE AUTO 0.04 K/mm3 (0.00-0.68); EOSINOPHILS PERCENT AUTO 0 % (0-6); Hematocrit 25.8 % (33.0-51.0); Hemoglobin 8.4 g/dL (11.5-16.0); IMMATURE GRAN ABSOLUTE AUTO 2.29 K/mm3 (0.00-0.10); IMMATURE GRAN PERCENT AUTO 9 % (0-1); LYMPHOCYTES ABSOLUTE AUTO 1.01 K/mm3 (0.84-5.20); LYMPHOCYTES PERCENT AUTO 4 % (21-46); MONOCYTES ABSOLUTE AUTO 0.87 K/mm3 (0.16-1.47); MONOCYTES PERCENT AUTO 3 % (4-13); Mean Corpuscular HGB Conc 32.6 g/dL (31.5-36.5); Mean Corpuscular Volume 92 fL (80-100); NEUTROPHILS ABSOLUTE AUTO 20.89 K/mm3 (1.96-9.15); NEUTROPHILS PERCENT AUTO 83 % (41-73); NRBC ABSOLUTE 0.65 K/mm3 (0.00-0.02); NRBC Auto 2.6 /100 WBC (0.0-0.2); Platelet Count 295 K/mm3 (150-400); RDW Coefficient Variation 19.4 % (11.7-14.2); RDW Standard Deviation 63.5 fL (35.1-46.3)
[2024-10-16 06:27] LABS: Albumin, Blood 2.7 g/dL (3.4-5.0); Anion Gap 9 mmol/L (3-11); Blood Urea Nitrogen 79 mg/dL (8-24); CO2, Blood 24 mmol/L (21-32); Calcium, Blood 8.2 mg/dL (8.5-10.1); Chloride, Blood 114 mmol/L (98-108); Creatinine, Blood 1.87 mg/dL (0.40-1.00); Glucose, Blood 115 mg/dL (70-99); Phosphorus, Blood 3.0 mg/dL (2.5-4.9); Potassium, Blood 3.4 mmol/L (3.5-5.5); Sodium, Blood 144 mmol/L (136-145)
[2024-10-16] MEDS ORDERED: Potassium Chl 20MEQ/Water100ML 100 ML IV ONE (06:45)
--- NOTE | 2024-10-16 11:19 | NUR ---
ASSUMPTION OF CARE ASSUMED CARE OF PATIENT AT 0700 WITH MARV MCGEE, RECIEVED REPORT FROM FRANCISCO MCGEE. PT IS A&0 X4 BUT IS LETHARGIC AND FEBRILE WITH A TMAX OF 100.4. PT CAN MOVE EXTREMITIES EQUALLY AND BILATERALLY. CONTINUOUS CARDIAC MONITORING IS IN PLACE SHOWING SINUS TACH WITH OCCASIONAL PVC'S, MAP IS >65. NICARDIPINE DRIP IS ON SB, SEE FLOW SHEET FOR TITRATIONS. PT WAS ON BIPAP OVERNIGHT BUT IS CURRENTLY ON 2L NC WITH A SP02 >92%. PICC LINE IS IN PLACE ON LUE. RECTAL TUBE IS IN PLACE AND DRAINING BROWN LIQUID STOOL. LITTLE IS PATENT AND DRAINING TO GRAVITY. CALL LIGHT IN REACH, CARE CONTINUES.
--- NOTE | 2024-10-16 12:15 | NUR ---
PT UPDATE ATTEMPTED TO GIVE PATIENT SMALL SIPS OF BROTH FROM LUNCH TRAY. PT IMMEDIATLEY BEGAN COUGHING WITH GURGLING SOUND IN HER THROAT. PT NOT ABLE TO ADEQUATLEY CLEAR SECRETIONS. DR. REED INFORMED, PT NOW NPO.
--- NOTE | 2024-10-16 14:00 | NUR ---
PT UPDATE CALLED DR REED REGARDING SBP OF 160-190. INSTRUCTED TO CONTINUE TO MONITOR, NO NEW ORDERS AT THIS TIME, CARE CONTINUES.
[2024-10-16] MEDS ORDERED: D5W-1/2NS KCl 20mEq 1,000 ML IV SCH (15:00)
[2024-10-16] MEDS ORDERED: Enoxaparin 30 MG/0.3 ML SYR SC SCH (17:00)
--- NOTE | 2024-10-16 17:13 | NUR ---
END OF SHIFT SUMMARY PT IS A&0 X4 BUT LETHARGIC AND WEAK, PT IS FEBRILE WITH A TEMP OF 100.0. PT IS ABLE TO MAKE NEEDS KNOWN AND CAN MOVE EXTREMITES EQUALLY AND BILATERALLY. CONTINUOUS CARDIAC MONITORING IN PLACE SHOWING SINUS RHYTHM WITH A HR IN THE 90'S-100'S, AND SMALL RUNS OF SVT, DR REED IS AWARE, STRIPS IN THE CHART. PT HAS BEEN HYPERTENSIVE WITH A SBP 160'S-190'S. DR REED AWARE, MEDICATED PER EMAR. PT ALTERNATING BETWEEN BIPAP AND NC AT 2L, CURRENTLY ON BIPAP 16/10/25% WITH SP02 >92%. LUNG SOUNDS ARE COARSE WITH EXPIRATORY WHEEZING AND WET COUGH, PT REQUIRING FREQUENT SUCTIONING. RR 20'S-30'S. PT IS NPO DUE TO ASPIRATION RISK. DOBHOFF WAS PLACED AND IS AT 55 CM. LITTLE IS PATENT AND DRAINING TO GRAVITY. PICC LINE IN PLACE AT E. BED IN LOWEST POSITION, WILL REPORT TO ONCOMING SHIFT.
[2024-10-17] VITALS (40 sets, daily range): BP systolic 124–185; BP diastolic 39–147
[2024-10-17 03:55] LABS: Hematocrit 24.8 % (33.0-51.0); Hemoglobin 8.0 g/dL (11.5-16.0); Mean Corpuscular HGB Conc 32.3 g/dL (31.5-36.5); Mean Corpuscular Volume 93 fL (80-100); NRBC ABSOLUTE 0.08 K/mm3 (0.00-0.02); NRBC Auto 0.6 /100 WBC (0.0-0.2); Platelet Count 198 K/mm3 (150-400); RDW Coefficient Variation 19.0 % (11.7-14.2); RDW Standard Deviation 63.4 fL (35.1-46.3)
[2024-10-17 04:14] LABS: Albumin, Blood 2.3 g/dL (3.4-5.0); Anion Gap 10 mmol/L (3-11); Blood Urea Nitrogen 75 mg/dL (8-24); CO2, Blood 25 mmol/L (21-32); Calcium, Blood 8.2 mg/dL (8.5-10.1); Chloride, Blood 113 mmol/L (98-108); Creatinine, Blood 2.04 mg/dL (0.40-1.00); Glucose, Blood 108 mg/dL (70-99); Phosphorus, Blood 3.0 mg/dL (2.5-4.9); Potassium, Blood 3.5 mmol/L (3.5-5.5); Sodium, Blood 144 mmol/L (136-145)
[2024-10-17 04:32] LABS: BAND PERCENT MAN 3 % (0-8); BASOPHILS ABSOLUTE MAN 0.00 K/mm3 (0.00-0.23); BASOPHILS PERCENT MAN 0 % (0-2); EOSINOPHILS ABSOLUTE MAN 0.13 K/mm3 (0.00-0.68); EOSINOPHILS PERCENT MAN 1 % (0-6); LYMPHOCYTES ABSOLUTE MAN 0.94 K/mm3 (0.84-5.20); LYMPHOCYTES PERCENT MAN 7 % (21-46); MONOCYTES ABSOLUTE MAN 0.53 K/mm3 (0.16-1.47); MONOCYTES PERCENT MAN 4 % (4-13); NEUTROPHILS ABSOLUTE MAN 11.86 K/mm3 (1.96-9.15); SEG NEUTROPHILS PERCENT MAN 85 % (41-73)
--- NOTE | 2024-10-17 08:49 | NUR ---
ASSUMPTION OF CARE: THIS RN ASSUMED CARE OF PT AT APPROX 0700. PT DROWSY BUT ORIENTED X4. SOFT SPOKEN. ON BIPAP TO MAINTAIN SPO2 >90%, SETTINGS 14/10 30%. VERY WET COUGH, WEAK COUGH EFFORT. UNABLE TO PRODUCE SPUTUM. LS EXP WHEEZE & CRACKLES BILATERALLY. HR 90-100'S, SINUS TACH ON MONITOR. SBP UP TO 170'S, ANTIHYPERTENSIVES VIA DOBHOFF GIVEN PER EMAR. PT IS NPO DUE TO CONCERNS FOR ASPIRATION. LITTLE CATH PATENT & DRAINING PALE YELLOW URINE TO GRAVITY. PICC TO LEDY, INFUSING D5 1/2NS KCL INFUSING AT 50 ML/HR & NS TKO. PT ASSISTED W/ POSITIONING THIS AM, RESTING IN BED AT THIS TIME. CALL LIGHT IN REACH.
[2024-10-17] MEDS ORDERED: VORICONAZOLE IV SCH (09:00)
[2024-10-17] MEDS ORDERED: NS IV SCH (09:00)
[2024-10-17 14:23] LABS: pH Blood Venous 7.43 (7.34-7.37)
[2024-10-17 14:49] LABS: Anion Gap 10.0 mmol/L (3-11); Blood Urea Nitrogen 71.0 mg/dL (8-24); CO2, Blood 24.0 mmol/L (21-32); Calcium, Blood 8.1 mg/dL (8.5-10.1); Chloride, Blood 114.0 mmol/L (98-108); Creatinine, Blood 2.16 mg/dL (0.40-1.00); Glucose, Blood 117.0 mg/dL (70-99); Potassium, Blood 3.6 mmol/L (3.5-5.5); Sodium, Blood 144.0 mmol/L (136-145)
--- NOTE | 2024-10-17 15:59 | NUR ---
FAMILY REQUEST FULL CODE WITH FULL TX. BEDSIDE RN AND SPEECH THERAPIST ASKED THIS PC RN TO MEET WITH PT'S FAMILY TO REVIEW CODE STATUS. LSP ADVISED PT IS STRICT NPO D/T ASPIRATION RISKS AND INABILTY TO MANAGE OWN SECRETIONS. PT CONTINUED TO ASK LSP FOR A DRINK AND ICE. BEDSIDE RN REPORTS WORK OF BREATHING HAS INCREASED AND POOR SELF MANAGEMENT OF SECRETIONS. UPON ENTERING THE ROOM, BEDSIDE RN IS BRUSHING PT'S HAIR. KEISHA'S EYES WERE OPEN. AFTER INTRODUCTION SHE SAID, "HI" AND CONFIRMED HER NAME. SHE ENDOURCED FATIGUE AFTER LSP SWALLOW EVALUATION AND HYGENIC CARE WITH NURSING. WHEN ASKED ABOUT CPR AND IF SHE WOULD WANT CHEST COMPRESSIONS SHE SHOOK HER HEAD SIDE TO SIDE AND WHISPERED "NO". ASKED ABOUT INTUBATION, SHE SQUEEZED HER EYES CLOSED, SHOOK HER HEAD SIDE TO SIDE AND STATED SLIGHTLY LOUDER THAN A WHISPER, "NO:. ADVISED PT THAT HER SON CHERYL AND HER PARTNER WOULD BE BACK TO THE ROOM SOON. OFFERED TO READDRESS CODE STATUS WITH FAMILY PRESENT PT APPEARS FATIGUED. SHE NODDED YES. COPY OF ADVANCE DIRECTIVE ON PAPER CHART REVIEWED. AD RELECTS PT WOULD NOT WANT TO BE ON LIFE SUPPORT. MET SON CHERYL AND SIGNIFICANT OTHER AT BEDSIDE. ATTEMPTED TO RECAP CONVERSATION THIS ASSISTANT TERMINAL MANAGER HAD WITH PT AND CARE TEAM. SON, ONLY WANTED TO TALK AWAY FROM PATIENT. THIS PC RN ATTEMPED TO EDUCATE ON THE IMPORTANCE OF HIM HEARING HIS MOM STATE HER WISHES. SON'S POSTURE BECAME RIGID AND STATEMENTS ABRUPT THAT PT WOULDN'T NEED INTUBATION AND SHE WOULD WANT EVERYTHING POSSIBLE. SON INSISTED THIS PC RN DIDN'T KNOW ANYTHING AND HE WANTED TO "...TALK TO A REAL NURSE." THIS PC RN OFFERED TO HAVE THE CARE TEAM MEET WITH THEM. COORDINATED BEDSIDE RN, RT AND EMBOSSING UNIT OPERATOR TO MEET WITH FAMILY TO REVIEW HER CURRENT MEDICAL STATUS AND TRAJECTORY. WHEN NOTIFYING SON OF CARE TEAM'S ABILITY TO MEET IN APX 5 MINUTES, HE ABRUPTLY CUT OFF CONVERSATION TO DEMAND, "I WANT THE DOCTOR THERE!" REASSURED SON, PROVIDER WOULD BE PRESENT. CARE TEAM MET WITH BOTH SONS AND SIGNIFICANT OTHER IN THE ICU LOBBY. AT THIS TIME FAMILY REQUESTS FULL TX.
--- NOTE | 2024-10-17 18:23 | NUR ---
END OF SHIFT NOTE: PT UP TO CHAIR W/ LIFT THIS EVENING. MORE ALERT THIS EVENING, ORIENTED X4. ABLE TO PARTICIPATE IN CARE. SPO2 >90% ON 4L VIA NC, BIPAP NEEDED T/O THE DAY. COUGH REMAINS VERY WET, INTERMITTENTLY PRODUCTIVE. PT ABLE TO SELF-SUCTION THIS EVENING. HR 90-110'S, SINUS RHYTHM W/ PVC'S ON MONITOR. SBP <180 THIS AFTERNOON; HYDRALAZINE ADMINISTERED PER EMAR X1 THIS AM. TMAX 101.1, TYLENOL ADMINISTERED PER EMAR. LITTLE CATH PATENT & DRAINING YELLOW URINE TO GRAVITY. NO BM'S THIS SHIFT. STRICT NPO PER SPEECH THERAPY. TF INITIATED THIS AFTERNOON VIA DOBHOFF. PT DENIES PAIN T/O THE DAY. CALL LIGHT IN REACH. AFTERNOON CARE CONFERENCE: THIS RN WAS NOTIFIED BY NOC RN THAT PT HAD EXPRESSED THAT SHE WOULD NOT WISH TO BE REINTUBATED SHOULD THE NEED ARISE. THIS RN SPOKE W/ PALLIATIVE CARE RN. THIS RN & PALLIATIVE CARE RN AT BEDSIDE W/ PT. PT SHOOK HEAD WHEN PALLIATIVE CARE RN ASKED PT IF SHE WISHED TO BE REINTUBATED. DISCUSSED THE NEED FOR CONFERENCE W/ WHOLE FAMILY REGARDING CODE STATUS & GOALS OF CARE. THIS RN WAS ASKED TO BE PART OF A FAMILY MEETING W/ PT'S TWO SONS, PT'S SPOUSE, DR. FOSS, RESPIRATORY THERAPIST, AND PALLIATIVE CARE RN. PT'S FAMILY REQUESTED THAT THIS MEETING TAKE PLACE OUTSIDE OF THE PT'S ROOM. PT'S CURRENT CARE PLAN, PROGNOSIS, AND OPTIONS WERE DISCUSSED AT LENGTH BY THE CARE TEAM. THE FAMILY HAS ELECTED TO PROCEED WITH FULL CODE. 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 PT A/OX4. THIS RN ASKED PT ABOUT HER CODE STATUS AND HER WISHES AT THIS TIME. PT STATES THAT SHE WOULD LIKE ALL TREATMENT AT THIS TIME, INCLUDING INTUBATION SHOULD THE NEED ARISE.
[2024-10-18] VITALS (23 sets, daily range): BP systolic 139–175; BP diastolic 43–61
--- NOTE | 2024-10-18 04:34 | NUR ---
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
[2024-10-18 04:45] LABS: BASOPHILS ABSOLUTE AUTO 0.02 K/mm3 (0.00-0.23); BASOPHILS PERCENT AUTO 0 % (0-2); EOSINOPHILS ABSOLUTE AUTO 0.10 K/mm3 (0.00-0.68); EOSINOPHILS PERCENT AUTO 1 % (0-6); Hematocrit 24.7 % (33.0-51.0); Hemoglobin 7.7 g/dL (11.5-16.0); IMMATURE GRAN ABSOLUTE AUTO 0.34 K/mm3 (0.00-0.10); IMMATURE GRAN PERCENT AUTO 3 % (0-1); LYMPHOCYTES ABSOLUTE AUTO 0.64 K/mm3 (0.84-5.20); LYMPHOCYTES PERCENT AUTO 5 % (21-46); MONOCYTES ABSOLUTE AUTO 0.30 K/mm3 (0.16-1.47); MONOCYTES PERCENT AUTO 3 % (4-13); Mean Corpuscular HGB Conc 31.2 g/dL (31.5-36.5); Mean Corpuscular Volume 94 fL (80-100); NEUTROPHILS ABSOLUTE AUTO 10.39 K/mm3 (1.96-9.15); NEUTROPHILS PERCENT AUTO 88 % (41-73); NRBC ABSOLUTE 0.04 K/mm3 (0.00-0.02); NRBC Auto 0.3 /100 WBC (0.0-0.2); Platelet Count 222 K/mm3 (150-400); RDW Coefficient Variation 19.5 % (11.7-14.2); RDW Standard Deviation 66.4 fL (35.1-46.3)
[2024-10-18 05:00] LABS: Alanine Aminotransfer (ALT/SGP 101.0 U/L (12-78); Albumin, Blood 2.2 g/dL (3.4-5.0); Albumin/Globulin Ratio 0.7 (0.8-1.8); Anion Gap 10.0 mmol/L (3-11); Aspartate Aminotrans (AST/SGOT 26.0 U/L (12-37); Bilirubin, Total 0.4 mg/dL (0.1-1.0); Blood Urea Nitrogen 70.0 mg/dL (8-24); CO2, Blood 24.0 mmol/L (21-32); Calcium, Blood 8.1 mg/dL (8.5-10.1); Chloride, Blood 115.0 mmol/L (98-108); Creatinine, Blood 2.66 mg/dL (0.40-1.00); Globulin, Blood 3.3 g/dL (2.2-4.0); Glucose, Blood 143.0 mg/dL (70-99); Magnesium, Blood 1.9 mg/dL (1.6-2.4); Phosphorus, Blood 4.3 mg/dL (2.5-4.9); Potassium, Blood 3.7 mmol/L (3.5-5.5); Sodium, Blood 145.0 mmol/L (136-145); Total Protein, Blood 5.5 g/dL (6.4-8.2)
--- NOTE | 2024-10-18 07:00 | NUR ---
ASSUMPTION OF CARE PT WAKES TO VERBAL STIMULI, A&OX3-4. SHE IS ON BIPAP WITH SETTINGS 16/8 WITH 40%. PT STS SHE WOULD LIKE A BREAK FROM THE MASK. PT PLACED ON 4L NC. PT HAS A PRODUCTIVE COUGH AND ABLE TO USE THE YANKEUR WITH SOME ASSISTANCE. SPUTUM IS THICK MAYERS. CEILING LIFT USED TO ASSIST PT TO RECLINER. SINUS ON MONITOR, SBP <180. TF INFUSING VIA DOBHOFF. LITTLE PATENT AND DRAINING TO GRAVITY. CORE TEMP 99.9. PT HAS 3 VISITORS AT BEDSIDE. CALL LIGHT WITHIN REACH.
--- NOTE | 2024-10-18 07:32 | NUR ---
SHIFT SUMMARY PT HAD TO BE ON BIPAP ENTIRE SHIFT. WAS UNABLE TO MAINTAIN O2 SATS >90% ON EITHER RA OR 4LNC, COULD NOT CLEAR SECRETIONS ON HER OWN (WAS NT SUCTIONED MULTIPLE TIMES FOR CHUNKY WHITE SECRETIONS), AND WAS GASPING FOR AIR AFTER ONE TO TWO WORDS ACCOMPANIED BY ACCESSORY MUSCLE USE AND GREATLY FATIGUED AT THE END OF ASSESSMENTS. PT AOX4 ENTIRE SHIFT, COOPERATIVE WITH CARE, MADE NEEDS KNOWN, USES CALL LIGHT AND YANKUER APPROPRIATELY. PT STATED LAST NIGHT THAT SHE JUST WANTED A GOOD NIGHT SLEEP "LIKE LAST NIGHT". TF ARE AT GOAL OF 60ML/HOUR WITH 30ML/Q4 WATER FLUSH. NO C/O ABD PAIN, DISCOMFORT, N/V. TEMP LITTLE REMAINS IN PLACE WITH DECREASED UO THIS SHIFT OF ONLY 200ML CLEAR TRACY.
--- NOTE | 2024-10-18 09:40 | NUR ---
Ethics consult order received and processed. Medical history, case notes, family constellation and advance directive discussed with nursing. Clarification provided i.e. the son as the formally designated healthcare member services representative possesses decisional privilege with respect to life support and tube feeding during periods of patient incapacitation. However, if the patient is medicaly confirmed to be in one of the 4 conditions indicated i.e. a state of incurable terminality, an advanced progressive illness with the asociated defintional parameters, permanently unconscious, intractable and extraordinary suffering, then the HCR must follow the treatment preferences / articulated wishes stipulated by the principal in the aforementioned section of the actual advance directive.
--- NOTE | 2024-10-18 10:49 | NUR ---
PT TOLERATED APPORX 2 HOUR BREAK ON 4L NC. PT BECOMING TIRED, INCREASED WORK OF BREATHING. PT PLACED BACK ON BIPAP. FAMILY REMAINS AT BEDSIDE.
[2024-10-18] MEDS ORDERED: NS IV SCH (11:00)
[2024-10-18] MEDS ORDERED: VORICONAZOLE IV SCH (11:00)
--- NOTE | 2024-10-18 18:31 | NUR ---
SHIFT SUMMARY PT IS ON BIPAP 01/12/30%. PT HAS HAD A FEW BREAKS FROM THE BIPAP AND PLACED ON 4L NC. PT HAS BEEN ALERT AND ORIENTED THROUGHOUT THE DAY. PARTICIPATES IN CONVERSATION AND ATTEMPTS TO ASSIST WITH CARE DESPITE WEAKNESS. SHE CONTINUES TO HAVE A PRODUCTIVE COUGH AND HAS BEEN ABLE TO SUCTION LARGE AMOUNT OUT TODAY. SINUS/SINUS TACH ON MONITOR. SBP <180 THROUGHOUT THE SHIFT. TUBE FEEDING INFUSING AT GOAL RATE VIA DOBHOFF. DOBHOFF AT 55CM. TUBING FOR LITTLE WAS KINKED, MODERATE AMOUNT OF URINE UNMEASURED. LITTLE NOW PATENT AND DRAINING TO GRAVITY. PT HAS BEEN SITTING IN CHAIR MOST OF THE DAY AND STS IT IS EASIER FOR HER TO BREATH AND MORE COMFORTABLE THAN THE BED. FAMILY AT BEDSIDE THIS AM. CALL LIGHT WITHIN REACH.
[2024-10-19] VITALS (21 sets, daily range): BP systolic 119–186; BP diastolic 40–76
[2024-10-19 03:48] LABS: BASOPHILS ABSOLUTE AUTO 0.01 K/mm3 (0.00-0.23); BASOPHILS PERCENT AUTO 0 % (0-2); EOSINOPHILS ABSOLUTE AUTO 0.17 K/mm3 (0.00-0.68); EOSINOPHILS PERCENT AUTO 2 % (0-6); Hematocrit 24.8 % (33.0-51.0); Hemoglobin 7.7 g/dL (11.5-16.0); IMMATURE GRAN ABSOLUTE AUTO 0.29 K/mm3 (0.00-0.10); IMMATURE GRAN PERCENT AUTO 3 % (0-1); LYMPHOCYTES ABSOLUTE AUTO 0.85 K/mm3 (0.84-5.20); LYMPHOCYTES PERCENT AUTO 8 % (21-46); MONOCYTES ABSOLUTE AUTO 0.59 K/mm3 (0.16-1.47); MONOCYTES PERCENT AUTO 6 % (4-13); Mean Corpuscular HGB Conc 31.0 g/dL (31.5-36.5); Mean Corpuscular Volume 96 fL (80-100); NEUTROPHILS ABSOLUTE AUTO 8.28 K/mm3 (1.96-9.15); NEUTROPHILS PERCENT AUTO 81 % (41-73); NRBC ABSOLUTE 0.07 K/mm3 (0.00-0.02); NRBC Auto 0.7 /100 WBC (0.0-0.2); Platelet Count 224 K/mm3 (150-400); RDW Coefficient Variation 20.0 % (11.7-14.2); RDW Standard Deviation 68.6 fL (35.1-46.3)
[2024-10-19 04:08] LABS: Albumin, Blood 2.1 g/dL (3.4-5.0); Anion Gap 10 mmol/L (3-11); Blood Urea Nitrogen 76 mg/dL (8-24); CO2, Blood 24 mmol/L (21-32); Calcium, Blood 8.4 mg/dL (8.5-10.1); Chloride, Blood 115 mmol/L (98-108); Creatinine, Blood 3.66 mg/dL (0.40-1.00); Glucose, Blood 127 mg/dL (70-99); Phosphorus, Blood 5.9 mg/dL (2.5-4.9); Potassium, Blood 4.3 mmol/L (3.5-5.5); Sodium, Blood 145 mmol/L (136-145)
--- NOTE | 2024-10-19 04:37 | NUR ---
PT HAD AN UNEVENTFUL NIGHT. SHE OPTED TO STAY IN THE CHAIR THE WHOLE SHIFT. BREAKS FROM THE BIPAP WERE GIVEN WHEN SHE ASKED, COULD ONLY TOLERATE BEING OFF IT FOR ABOUT 40 MINS OR SO BEFORE HER SECRETIONS, COUGHING, AND WORK OF BREATHING WOULD HAVE HER ASKING FOR THE MASK TO BE PUT BACK ON. WAS ASKING FOR "SOMETHING TO HELP HER SLEEP". XRAY DONE AT 0400, TMAX 101.6.
--- NOTE | 2024-10-19 06:51 | NUR ---
TMAX 101.8, 650MG ACETAMINOPHEN GIVEN.
--- NOTE | 2024-10-19 07:00 | NUR ---
ASSUMPTION OF CARE DURING BEDSIDE REPORT, PT BEING PLACED BACK ON BIPAP BY RT AFTER SHORT BREAK ON NC. SETTINGS 16/10 30%. PT TACHYPNEIC WITH RATE IN 30S, SPO2 >90%. PT IS AWAKE BUT DROWSY. SHE ANSWERS WITH "YES/NO" DUE TO SHORTNESS OF BREATH. REPORTS NOT SLEEPING WELL OVERNIGHT. SINUS TACH ON MONITOR WITH RATE 100S-110S. BP STABLE. TF INFUSING AT GOAL RATE VIA DOBHOFF. PT HAD LARGE BM. LITTLE PATENT AND DRAINING TO GRAVITY. URINE IS YELLOW CLOUDY WITH SMALL AMOUNT OF SEDIMENT. CALL LIGHT WITHIN REACH.
[2024-10-19] MEDS ORDERED: Magnesium Hydroxide Conc 10 ML UDC PT PRN (09:55)
[2024-10-19] MEDS ORDERED: Docusate Sodium Liquid 100 MG UDC PT PRN (09:55)
[2024-10-19] MEDS ORDERED: Albumin (Human) 25gm/100ml 100 ML IV SCH (14:00)
[2024-10-19 14:13] LABS: White Blood Cells Urine TNTC /hpf (0-5)
[2024-10-19 14:51] LABS: EOS, Urine 1.0 % (0.0-1.0); Eosinophils-Raw #,Urine 1
--- NOTE | 2024-10-19 17:22 | NUR ---
SHIFT SUMMARY PT IS ON BIPAP WITH SETTINGS 16 WITH 30%. SHE HAD AN HOUR LONG BREAK AND PLACED ON 6L NC WHILE FAMILY VISITED. SHE CONTINUES TO COUGH UP THICK MAYERS AND DARK BROWN SPUTUM. PT REPORTS STILL FEELING DROWSY. SHE WAKENS EASILY TO VERBAL STIMULI, ANSWERS QUESTIONS APPROPRIATELY. SHE APPEARS MORE WEAK THAN YESTERDAY. TUBE FEEDING CHANGED TO NEPRO WITH GOAL OF 35ML/HR THIS SHIFT. 1 LARGE BM THIS SHIFT. PT CONTINUES TO HAVE DECREASED URINE OUTPUT, NOW CLOUDY WITH SEDIMENT. LITTLE IRRIGATED AND PATENT. FRONT DESK MANAGER PERFORMED BEDSIDE ULTRASOUND AND SHOWED NO URINE IN BLADDER. PT HAS HAD 80ML OUTPUT THIS SHIFT. NEPHROLOGY NOTIFIED AND ORDER PLACED FOR IVF X2 BAGS. SINUS-SINUS TACH ON MONITOR. SBP <180 AND MAP >65 THROUGHOUT THE DAY. BED IN LOW POSITION, CALL LIGHT WITHIN REACH.
[2024-10-19] MEDS ORDERED: NS 1,000 ML IV SCH (17:35)
[2024-10-20] VITALS (57 sets, daily range): BP systolic 118–175; BP diastolic 36–104
[2024-10-20] MEDS ORDERED: Acetylcysteine 200 MG/ML 30ml Inhalation INH PRN (01:40)
[2024-10-20] MEDS ORDERED: NS 1,000 ML IV ONE (02:06)
[2024-10-20] MEDS ORDERED: Hydrogen Peroxide 1.5 % Solution MT SCH (04:00)
[2024-10-20 04:02] LABS: pH Blood Venous 7.27 (7.34-7.37)
[2024-10-20] MEDS ORDERED: Sodium Bicarb 8.4% 1 MEQ/ML 50 ML Vial IV ONE (04:40)
[2024-10-20] MEDS ORDERED: Rocuronium Bromide 10 MG/ML 5ML Injection IV ONE (05:39)
[2024-10-20] MEDS ORDERED: Etomidate 2MG / ML 10ML Vial IV ONE (05:39)
[2024-10-20 06:25] LABS: Albumin, Blood 2.6 g/dL (3.4-5.0); Anion Gap 14 mmol/L (3-11); Blood Urea Nitrogen 90 mg/dL (8-24); CO2, Blood 20 mmol/L (21-32); Calcium, Blood 8.4 mg/dL (8.5-10.1); Chloride, Blood 116 mmol/L (98-108); Creatinine, Blood 4.95 mg/dL (0.40-1.00); Glucose, Blood 139 mg/dL (70-99); Phosphorus, Blood 7.3 mg/dL (2.5-4.9); Potassium, Blood 4.9 mmol/L (3.5-5.5); Sodium, Blood 145 mmol/L (136-145)
[2024-10-20 06:29] LABS: pH Blood Venous 7.37 (7.34-7.37)
--- NOTE | 2024-10-20 07:42 | NUR ---
INTUBATION PT HAD BEEN PLACED ON BIPAP AT AROUND 2114 BUT HAD BEEN REQUIRING ORAL SUCTIONING 2-3X/HOUR. SECRETIONS WERE THICK, AND HER COUGH WAS BECOMING WEAKER EACH TIME AND SAYING HOW TIRED SHE WAS AND JUST WANTED TO SLEEP. ORAL CARE WAS DONE AT 0000 AND AROUND 0130 SHE WOULD DESAT INTO THE 80S, WENT IN TO ASSESS HER, AND SHE SAID "I DON'T FEEL LIKE I'M GETTING ANY AIR". I PLACED HER NC ON WHILE ASSESSED, EVERYTHING LOOKED LIKE IT SHOULD BE. I CALLED RT AND ASKED THEM TO COME SEE HER, SHE HAD BROKEN OUT IN A FULL BODY SWEAT, WAS STRUGGLING TO BREATHE, COULD NOT COUGH UP HER SECRETIONS. RT CAME TO BEDISDE, EVALUATED AND TREATED, PT STILL CONTINUED TO STRUGGLE, WAS LETHARGIC BUT EASILY AROUSABLE. WE ASKED HER IF SHE NEEDED TO BE REINTUBATED AGAIN, DID SHE WANT THAT? AND SHE SAID YES EACH TIME. CALLED THE MD TO ASK FOR MED ORDERS AND NT SUCTION ORDERS (WHICH HE GAVE), MODERATE AMOUNT OF SECRETIONS CAME UP WITH THE NT SUCTION YET PT CONDITION DID NOT IMPROVE. CALLED HOSPITALIST TO COME SEE HER, HE ARRIVED SOON AFTER. AFTER EVALUATING THE PT AND TALKING TO THE RT AND I, HE DECIDED TO INTUBATE. HE ASKED THE PT IF SHE WAS AGREEABLE TO THAT AND AGAIN SHE SAID YES. SHE TOLERATED THE PROCEDURE WELL. INITIALLY THE ET WAS 25CM AT TEETH BUT AFTER XRAY, AXEL ORDERED FOR IT TO BE WITHDRAWN 2 CM WHICH WAS DONE BY RT. INTUBATED AT 0212, AC/VC 16-340-100%-P5. POST INTUBATION VBG HAD CRITICAL PH OF 7.27, 2 AMPS BICARB GIVEN AND RATE CHANGED TO 18. REPEAT VBG DONE AT 0615.
[2024-10-20] MEDS ORDERED: Cetylpyridinium Chloride 1 EA MISC MT SCH (08:00)
[2024-10-20] MEDS ORDERED: FentaNYL Citrate 50 MCG/ML 2 ML Injection IV PRN (08:15)
[2024-10-20] MEDS ORDERED: Heparin Sodium,Porcine 5,000 UNIT/0.5 ML SDV SC SCH (09:00)
[2024-10-20 09:12] LABS: BASOPHILS ABSOLUTE AUTO 0.01 K/mm3 (0.00-0.23); BASOPHILS PERCENT AUTO 0 % (0-2); LYMPHOCYTES ABSOLUTE AUTO 0.34 K/mm3 (0.84-5.20); LYMPHOCYTES PERCENT AUTO 9 % (21-46); MONOCYTES ABSOLUTE AUTO 0.19 K/mm3 (0.16-1.47); MONOCYTES PERCENT AUTO 5 % (4-13); Mean Corpuscular HGB Conc 31.5 g/dL (31.5-36.5); Mean Corpuscular Volume 95 fL (80-100); NRBC ABSOLUTE 0.03 K/mm3 (0.00-0.02); NRBC Auto 0.8 /100 WBC (0.0-0.2); Platelet Count 133 K/mm3 (150-400); RDW Coefficient Variation 20.0 % (11.7-14.2); RDW Standard Deviation 69.0 fL (35.1-46.3)
[2024-10-20 09:14] LABS: EOSINOPHILS ABSOLUTE AUTO 0.04 K/mm3 (0.00-0.68); EOSINOPHILS PERCENT AUTO 1 % (0-6); IMMATURE GRAN ABSOLUTE AUTO 0.06 K/mm3 (0.00-0.10); IMMATURE GRAN PERCENT AUTO 2 % (0-1); NEUTROPHILS ABSOLUTE AUTO 3.28 K/mm3 (1.96-9.15); NEUTROPHILS PERCENT AUTO 84 % (41-73)
[2024-10-20 09:17] LABS: Hematocrit 17.8 % (33.0-51.0); Hemoglobin 5.6 g/dL (11.5-16.0)
[2024-10-20 09:33] LABS: Alanine Aminotransfer (ALT/SGP 96.0 U/L (12-78); Albumin, Blood 2.5 g/dL (3.4-5.0); Albumin/Globulin Ratio 0.8 (0.8-1.8); Anion Gap 13.0 mmol/L (3-11); Aspartate Aminotrans (AST/SGOT 52.0 U/L (12-37); Bilirubin, Total 0.4 mg/dL (0.1-1.0); Blood Urea Nitrogen 94.0 mg/dL (8-24); CO2, Blood 25.0 mmol/L (21-32); Calcium, Blood 8.2 mg/dL (8.5-10.1); Chloride, Blood 113.0 mmol/L (98-108); Creatinine, Blood 4.97 mg/dL (0.40-1.00); Globulin, Blood 3.3 g/dL (2.2-4.0); Glucose, Blood 133.0 mg/dL (70-99); Magnesium, Blood 2.0 mg/dL (1.6-2.4); Phosphorus, Blood 6.9 mg/dL (2.5-4.9); Potassium, Blood 4.7 mmol/L (3.5-5.5); Sodium, Blood 146.0 mmol/L (136-145); Total Protein, Blood 5.8 g/dL (6.4-8.2)
[2024-10-20] MEDS ORDERED: Ipratropium/Albuterol SulF 2.5-0.5MG/3 ML Amp INH SCH (14:30)
[2024-10-20] MEDS ORDERED: Furosemide 10 MG / ML 2ML Vial IV ONE (14:30)
[2024-10-20 15:24] LABS: Hematocrit 22.2 % (33.0-51.0); Hemoglobin 7.2 g/dL (11.5-16.0)
[2024-10-20 15:52] LABS: Anion Gap 12.0 mmol/L (3-11); Blood Urea Nitrogen 88.0 mg/dL (8-24); CO2, Blood 23.0 mmol/L (21-32); Calcium, Blood 8.1 mg/dL (8.5-10.1); Chloride, Blood 112.0 mmol/L (98-108); Creatinine, Blood 5.1 mg/dL (0.40-1.00); Glucose, Blood 141.0 mg/dL (70-99); Potassium, Blood 4.6 mmol/L (3.5-5.5); Sodium, Blood 142.0 mmol/L (136-145)
--- NOTE | 2024-10-20 18:12 | NUR ---
SHIFT SUMMARY NEURO: RESPONSIVE TO VERBAL STIMULI, RASS -3. ABLE TO NOD YES/NO AND FOLLOWS COMMANDS. ON PROPOFOL AT 30MCG/KG/MIN AND FENTANYL GTT 25MCG/HR. PULM: COARSE THROUGH OUT WITH EXP WHEEZING. SPO2 >96% ON CURRENT VENT SETTINGS. MODE: ACPC/RATE:12/IP:16/PEEP:5. PT REQUIRING Q 1-2HR PRN FENTANYL OTHERWISE PT ASYNCHRONOUS WITH VENT. DR FOSS ADJUSTED MODE/SETTINGS ON VENT FROM ACVC TO ACPC AT 1424. FENTANYL GTT STARTED. PT APPEAR COMFORTABLE AT THIS TIME. CARDIAC: SR-STACH SBP 120-150S. HR 80-100S. GI: NEPHRO RUNNING AT 35ML/HR AT GOAL W/ 30ML H20 FLUSHES X4. +CONSTIPATED, ADMIN PRN STOOL SOFTENER TODAY. : LITTLE IN PLACE DRAINING TO GRAVITY. CLOUDY/SEDIMENT PRESENT. TOTAL UOP THIS SHIFT 61ML. RECIEVED 100MG LASIX WITH MINIMAL RESPONSE. DR FOSS AND DR MERCADO AWARE. SKIN: UNCHANGED. FAMILY INTO VISIT TODAY, SON CHERYL AND .
[2024-10-20 19:34] LABS: EOS, Urine 2.0 % (0.0-1.0); Eosinophils-Raw #,Urine 2
[2024-10-20 20:11] LABS: Hematocrit 21.1 % (33.0-51.0); Hemoglobin 6.9 g/dL (11.5-16.0)
[2024-10-20 20:40] LABS: Anion Gap 13.0 mmol/L (3-11); Blood Urea Nitrogen 100.0 mg/dL (8-24); CO2, Blood 23.0 mmol/L (21-32); Calcium, Blood 8.6 mg/dL (8.5-10.1); Chloride, Blood 113.0 mmol/L (98-108); Creatinine, Blood 5.32 mg/dL (0.40-1.00); Glucose, Blood 135.0 mg/dL (70-99); Potassium, Blood 4.9 mmol/L (3.5-5.5); Sodium, Blood 144.0 mmol/L (136-145)
[2024-10-20] MEDS ORDERED: Cefepime HCl 1,000 MG in NS 100 ML IV SCH (21:00)
[2024-10-20 21:01] LABS: pH Blood Venous 7.43 (7.34-7.37)
[2024-10-21] VITALS (99 sets, daily range): BP systolic 113–182; BP diastolic 32–100
[2024-10-21 05:08] LABS: Hematocrit 26.1 % (33.0-51.0); Hemoglobin 8.7 g/dL (11.5-16.0); Mean Corpuscular HGB Conc 33.3 g/dL (31.5-36.5); NRBC ABSOLUTE 0.03 K/mm3 (0.00-0.02); NRBC Auto 0.6 /100 WBC (0.0-0.2); Platelet Count 139 K/mm3 (150-400); RDW Coefficient Variation 19.9 % (11.7-14.2); RDW Standard Deviation 65.1 fL (35.1-46.3)
[2024-10-21 05:11] LABS: Mean Corpuscular Volume 90 fL (80-100)
[2024-10-21 05:20] LABS: Prothrombin Time Results 12.3 Sec (9.7-11.5)
[2024-10-21 05:36] LABS: Albumin, Blood 2.4 g/dL (3.4-5.0); Anion Gap 14 mmol/L (3-11); Bilirubin, Direct 0.3 mg/dL (0.0-0.3); Bilirubin, Indirect 0.3 mg/dL (0.1-0.7); Bilirubin, Total 0.6 mg/dL (0.1-1.0); Blood Urea Nitrogen 102 mg/dL (8-24); CO2, Blood 24 mmol/L (21-32); Calcium, Blood 8.8 mg/dL (8.5-10.1); Chloride, Blood 110 mmol/L (98-108); Creatinine, Blood 5.57 mg/dL (0.40-1.00); Glucose, Blood 114 mg/dL (70-99); Phosphorus, Blood 7.1 mg/dL (2.5-4.9); Potassium, Blood 5.3 mmol/L (3.5-5.5); Sodium, Blood 143 mmol/L (136-145)
[2024-10-21 05:42] LABS: BAND PERCENT MAN 21 % (0-8); BASOPHILS ABSOLUTE MAN 0.05 K/mm3 (0.00-0.23); BASOPHILS PERCENT MAN 1 % (0-2); EOSINOPHILS ABSOLUTE MAN 0.10 K/mm3 (0.00-0.68); EOSINOPHILS PERCENT MAN 2 % (0-6); LYMPHOCYTES ABSOLUTE MAN 0.25 K/mm3 (0.84-5.20); LYMPHOCYTES PERCENT MAN 5 % (21-46); MONOCYTES ABSOLUTE MAN 0.20 K/mm3 (0.16-1.47); MONOCYTES PERCENT MAN 4 % (4-13); MYELOCYTE ABSOLUTE MAN 0.10 K/mm3 (0.00-0.00); MYELOCYTE PERCENT MAN 2 % (0-0); NEUTROPHILS ABSOLUTE MAN 4.43 K/mm3 (1.96-9.15); SEG NEUTROPHILS PERCENT MAN 65 % (41-73)
--- NOTE | 2024-10-21 06:24 | NUR ---
SHIFT SUMMARY: PT IS ON PROPOFOL AND FENTANYL GTT, SHE AWAKENS TO STIMULI AND CAN COMMUNICATE SOME THROUGH HEAD NODS. PT HAS BEEN FEBRILE THROUGHOUT SHIFT, NOT MUCH CHANGE WITH TYLENOL AND COLD PACKS. SHE RECEIVED ANOTHER UNIT PRBCS. SHE HAS HAD 20ML URINE OUTPUT THROUGHOUT ENTIRE SHIFT. REMAINS VERY EDEMATOUS AND SKIN APPEARS RED AND FRAGILE. PT SEEMED TO TOLERATE PRESSURE SUPPORT SETTINGS BETTER. SHE CONTINUES TO HAVE HEAVY ORAL SECRETIONS AND THICK SPUTUM SUCTIONED FROM TUBE.
[2024-10-21] MEDS ORDERED: Pantoprazole Sodium 40 MG Injection IV SCH (11:00)
--- NOTE | 2024-10-21 11:02 | NUR ---
FAMILY MEETING AT 1000 WITH , SIGN.OTHER, SON CAM AND FRIEND OF CAM. CAM REQUESTS THAT SHE BE TRANSFERRED TO [place]. WHEN MEETING OVER, ASKED CAM IF HE HAD SPOKEN TO HIS MOM AND HE ASSURED ME THAT HE HAD NOT "SHE REALLY CAN'T ANSWER ME". I WAS CLEAR TO EDUCATED SON ABOUT PATIENT BEING MILDLY SEDATED AND ANSWERS QUESTIONS WITH HEAD SHAKES AND NODS. SHE UNDERSTOOD THAT THE PLAN FOR TODAY IS TO PLACE A DIALYSIS CATHETER AND BEGIN DIALYSIS. SHE NODDED. SHE SHAKES HER HEAD APPROPRIATE WELL. ENCOURAGED CONVERSATION BY THE SON.
[2024-10-21] MEDS ORDERED: Hydrogen Peroxide 1.5 % Solution MT SCH (12:00)
[2024-10-21] MEDS ORDERED: Petrolatum/Mineral Oil/Lanolin 1 APPLIC/50 GM Tube TOP SCH (14:05)
--- NOTE | 2024-10-21 15:24 | NUR ---
ASSUMED CARE: ASSUMED CARE OF PT AT 1200, PT IS SEDATED ON VENTILATOR, PROPOFOL AT 35MCG/KG/MIN, FENTANYL AT 25MCG/HR. AT BEDSIDE, PLACING TEMP DIALYSIS CATHETER TO RIGHT IJ. VENT SETTINGS, PS 18/PEEP8/FIO2 30% PT IN ST WITH HR 100-110'S, SLIGHT HTN NOTED, AWARE. TUBE FEEDS STOPPED DUE TO GI INTOLERANCE. DOBHOFF REMOVED PER ORDER, OGT PLACED TO LIS. PT RN IMCU AT THIS TIME. LITTLE PATENT, DRAINING TO GRAVITY.
[2024-10-21] MEDS ORDERED: Lidocaine 2% Viscous Soln 20 ML,Nystatin 100,000 Unit/ml Susp 20 ML,Mag Hydrox/Al Hydro... MT SCH (17:00)
--- NOTE | 2024-10-21 19:21 | NUR ---
SHIFT SUMMARY: SEE PREVIOUS NOTES. PT IS SEDATED WITH PROPOFOL AT 35MCG/KG/MIN, AND FENTANYL 25MCG/HR. OPENS EYES TO VERBAL STIMULI, ABLE TO FOLLOW SIMPLE COMMANDS. VENT SETTINGS UNCHANGED PS 18/PEEP8, FIO2 30% MODERATE AMOUNT OF THICK SECRETIONS VIA ETT, MAYERS/RED SECRETIONS. PT REMAINS NPO, OGT TO LIS. LITTLE PATENT DRAINING TO GRAVITY 50ML OF URINE OUTPUT, SEDIMENT NOTED. PT REPOSITIONED Q2HRS. BEDSIDE REPORT GIVEN TO ONCOMING NURSE.
[2024-10-21] MEDS ORDERED: Cetylpyridinium Chloride 1 EA MISC MT SCH (20:00)
[2024-10-21] MEDS ORDERED: Protein Supplement 30 ML UD PT SCH (21:00)
--- NOTE | 2024-10-21 22:05 | NUR ---
ASSUMPTION OF CARE/ASSESSMENT: ASSUMED CARE OF PT AT 1900; BEDSIDE SHIFT REPORT RECIEVED FROM ZIGGY MCGEE. PT REMAINS INTUBATED AND SEDATED. PROPOFOL GTT @ 35 MCG. PT RESPONSIVE TO PAIN STIMULI, PERRLA AND RAAS -2 TO -3. PT COARSE T/O, MODERATE AMOUNTS OF THICK, MAYERS/RED SECRETION FROM ETT; VENT SETTINGS ARE SPONT. 18/8, FIO2 30% AND TV 500-600. PT SR ON MONITOR WITH HR 90-100, SBP 140'S. FENTANYL GTT @ 25 MCG/HR. PT TEMP LITTLE IN PLACE; OLIGURIA NOTED, DR. MERCADO AWARE. TMAX 101.5. FAN AND ICE PACKS APPLIED. TRILYSIS CATH TO RIJ. SITE LOOKS GOOD, SOME MINIMAL LEAKING NOTED UNDER DRESSING. OGT IN PLACE @ 22 INCHES, LIS WITH GREEN/WHITE OUTPUT. BSWR IN PLACE.
[2024-10-22] VITALS (85 sets, daily range): BP systolic 124–166; BP diastolic 34–64
--- NOTE | 2024-10-22 00:25 | NUR ---
PT UPDATE: NEURO ASSESSMENT REMAINS UNCHANGED. PT DOES REPORT NEW DIZZINESS. PT COMPLAINING OF 10/10 PAIN IN R. KNEE; MEDS PER EMAR. PA LYSIS CATH REMAINS INTACT WITH TP INFUSING @ 0.5 MG/HR. WILL CONTINUE TO MONITOR.
[2024-10-22 03:59] LABS: Hematocrit 23.4 % (33.0-51.0); Hemoglobin 8.0 g/dL (11.5-16.0); Mean Corpuscular HGB Conc 34.2 g/dL (31.5-36.5); Mean Corpuscular Volume 90 fL (80-100); NRBC ABSOLUTE 0.03 K/mm3 (0.00-0.02); NRBC Auto 0.6 /100 WBC (0.0-0.2); Platelet Count 115 K/mm3 (150-400); RDW Coefficient Variation 19.1 % (11.7-14.2); RDW Standard Deviation 62.4 fL (35.1-46.3)
[2024-10-22 04:29] LABS: Albumin, Blood 2.0 g/dL (3.4-5.0); Anion Gap 11 mmol/L (3-11); Blood Urea Nitrogen 58 mg/dL (8-24); CO2, Blood 28 mmol/L (21-32); Calcium, Blood 8.0 mg/dL (8.5-10.1); Chloride, Blood 102 mmol/L (98-108); Creatinine, Blood 4.14 mg/dL (0.40-1.00); Glucose, Blood 100 mg/dL (70-99); Phosphorus, Blood 5.3 mg/dL (2.5-4.9); Potassium, Blood 4.3 mmol/L (3.5-5.5); Sodium, Blood 137 mmol/L (136-145)
[2024-10-22 04:30] LABS: BAND PERCENT MAN 30 % (0-8); BASOPHILS ABSOLUTE MAN 0.00 K/mm3 (0.00-0.23); BASOPHILS PERCENT MAN 0 % (0-2); EOSINOPHILS ABSOLUTE MAN 0.14 K/mm3 (0.00-0.68); EOSINOPHILS PERCENT MAN 3 % (0-6); LYMPHOCYTES ABSOLUTE MAN 0.19 K/mm3 (0.84-5.20); LYMPHOCYTES PERCENT MAN 4 % (21-46); MONOCYTES ABSOLUTE MAN 0.14 K/mm3 (0.16-1.47); MONOCYTES PERCENT MAN 3 % (4-13); NEUTROPHILS ABSOLUTE MAN 4.44 K/mm3 (1.96-9.15); SEG NEUTROPHILS PERCENT MAN 60 % (41-73)
--- NOTE | 2024-10-22 06:05 | NUR ---
SHIFT SUMMARY: NO ACUTE CHANGES OVERNIGHT; VSS THROUGHOUT THE SHIFT. VENT SETTINGS REMAIN UNCHANGED. PROPOFOL GTT @ 30 MCG/KG/HR AND FENTANYL GTT @ 25 MCG/HR. OLIGURIA NOTED, 1O MLS OUTPUT. PICC TO LEDY PATENT AND INFUSING. R. TRIALYSIS CATH PATENT. CHG BATH COMPLETE. WILL REPORT OFF TO ONCOMING RN.
[2024-10-22 07:34] LABS: HAPTOGLOBIN 291 mg/dL (30-200)
[2024-10-22] MEDS ORDERED: Folic Acid 1 MG TAB PT SCH (13:01)
--- NOTE | 2024-10-22 18:10 | NUR ---
END OF SHIFT SUMMARY PT CONT TO BE INTUBATED AND SEDATED. SHE IS SEDATED WITH PROPOFOL INFUSING AT 30MCG/KG/MIN AND FENTANYL INFUSING AT 25MCG/HR; RASS -2; WILL OCCATIONALLY ANSWER Y/N QUESTIONS. SHE HAS BEEN ON SPONT ALL SHIFT WITH SETTINGS SPONT 16/8, FIO2 30%. TMAX 100.1. HR 90'S. SBP 120-150'S, MAP'S AFTER DIALYSIS 65-75. OG TO LIS. LITTLE IN PLACE WITH MINIMAL OUTPUT; DIALYSIS COMPLETED TODAY AND 4L REMOVED. PICC TO LUE PATENT WITH DRESSING C/D/I. TRIALYSIS CATH TO RIJ PATENT WITH DRESSING C/D/I. BOTH SONS AND SIG OTHER AT BEDSIDE THIS SHIFT AND UPDATED BY DR REED. WILL REPORT TO PM RN WHEN AVAILABLE.
--- NOTE | 2024-10-22 19:49 | NUR ---
ASSUMPTION OF CARE/ASSESSMENT: ASSUMED CARE OF PT AT 1900; BEDSIDE SHIFT REPORT RECIEVED FROM ANTELMO RN'S. PT REMAINS INTUBATED AND SEDATED. RAAS -1, AROUSES TO VERBAL STIMULI AND ABLE TO FOLLOW SIMPLE DIRECTIONS AND NOD HEAD YES/NO. PT DENIES PAIN AT THIS TIME. PT VENT SETTINGS AC/PC 18/8, RATE 14, FIO2 30% AND TV 400-425. LUNGS COARSE/RHONCHI T/O, SPO2 94<. SR ON MONITOR WITH HR 80-90'S, SBP 130'S. OGT IN PLACE @ 55 CM; LIS WITH FORMULA OUTPUT. TEMP LITTLE IN PLACE, OLIGURIA NOTED, PROVIDER AWARE; TMAX 99.7. BSWR IN PLACE. PICC TO LEDY THAT IS PATENT AND INFUSING PROPOFOL @ 30 MCG/KG/HR AND FENTANYL @ 25 MCG/HR. TRIALYSIS CATH TO RIJ THAT IS PATENT AND SALINE LOCKED.
[2024-10-23] VITALS (102 sets, daily range): BP systolic 106–165; BP diastolic 36–107
[2024-10-23 04:27] LABS: Hematocrit 22.9 % (33.0-51.0); Hemoglobin 7.8 g/dL (11.5-16.0); Mean Corpuscular HGB Conc 34.1 g/dL (31.5-36.5); Mean Corpuscular Volume 88 fL (80-100); NRBC ABSOLUTE 0.02 K/mm3 (0.00-0.02); NRBC Auto 0.4 /100 WBC (0.0-0.2); Platelet Count 118 K/mm3 (150-400); RDW Coefficient Variation 18.4 % (11.7-14.2); RDW Standard Deviation 59.0 fL (35.1-46.3)
[2024-10-23 04:53] LABS: Albumin, Blood 1.7 g/dL (3.4-5.0); Anion Gap 15 mmol/L (3-11); Blood Urea Nitrogen 40 mg/dL (8-24); CO2, Blood 27 mmol/L (21-32); Calcium, Blood 8.3 mg/dL (8.5-10.1); Chloride, Blood 96 mmol/L (98-108); Creatinine, Blood 3.26 mg/dL (0.40-1.00); Glucose, Blood 92 mg/dL (70-99); Lactate Dehydrogenase (Ld),Bld 346 U/L (100-240); Phosphorus, Blood 4.6 mg/dL (2.5-4.9); Potassium, Blood 3.3 mmol/L (3.5-5.5); Sodium, Blood 135 mmol/L (136-145)
--- NOTE | 2024-10-23 05:32 | NUR ---
SHIFT SUMMARY: NO ACUTE CHANGES OVERNIGHT; VSS THROUGHOUT THE SHIFT. PT REMAINS INTUBATED AND SEDATED. VENT SETTINGS REMAIN UNCHANGED. PROPOFOL GTT @ 30 MCG/KG/HR AND FENTANYL GTT @ 25 MCG/HR. CHG BATH COMPLETE AND LINEN CHANGE. PICC TO LEDY THAT IS PATENT AND INFUSING MEDS. TRIALYSIS CATH TO RIJ THAT IS PATENT AND SALINE LOCKED. CXR COMPLETED THIS MORNING. WILL REPORT OFF TO ONCOMING RN.
[2024-10-23 05:52] LABS: BASOPHILS ABSOLUTE MAN 0.00 K/mm3 (0.00-0.23); BASOPHILS PERCENT MAN 0 % (0-2); EOSINOPHILS ABSOLUTE MAN 0.00 K/mm3 (0.00-0.68); EOSINOPHILS PERCENT MAN 0 % (0-6); LYMPHOCYTES ABSOLUTE MAN 0.42 K/mm3 (0.84-5.20); LYMPHOCYTES PERCENT MAN 8 % (21-46); METAMYELOCYTE ABSOLUTE MAN 0.05 K/mm3 (0.00-0.00); METAMYELOCYTE PERCENT MAN 1 % (0-0); MONOCYTES ABSOLUTE MAN 0.21 K/mm3 (0.16-1.47); MONOCYTES PERCENT MAN 4 % (4-13); NEUTROPHILS ABSOLUTE MAN 4.59 K/mm3 (1.96-9.15); SEG NEUTROPHILS PERCENT MAN 87 % (41-73)
--- NOTE | 2024-10-23 11:01 | NUR ---
ASSUMED CARE AT 0700 PT LAYING IN BED INTUBATED AND SEDATED. SHE IS SEDATED WITH PROPOFOL INFUSING AT 30MCG/KG/MIN AND FENTANYL INFUSING AT 25MCG/HR; SHE IS ABLE TO OPEN EYES TO VERBAL STIUMULI; ANSWERING Y/N QUESTIONS APPROPRIATLY; RASS -1 TO -2. AFEBRILE. VENT SETTINGS AC/PC 18/8, RATE 14, FIO2 30%. HR 90'S. SBP 120-150'S; MAP 63-83; MODERATE GENERALIZED SWELLING NOTED ALONG WITH MODERATE SWELLING TO BILATERAL HANDS, AND BILATERAL FEET. ABD MOD-SEVERE DISTENTION; OG TO LIS. LITTLE IN PLACE AND DRAINING MINIMALLY TO GRAVITY. GENERALIZED RED TYPE RASH NOTED. PICC TO LUE PATENT WITH DRESSING C/D/I. TRIALYSIS CATH DRESSING TO RIJ C/D/I. SEE SHIFT ASSESSMENT FOR FULL ASSESSMENT.
[2024-10-23] MEDS ORDERED: Albumin (Human) 25gm/100ml 100 ML IV PRN (13:00)
[2024-10-23 13:24] LABS: HEPATITIS B SURFACE ANTIBODY 27.25 IU/L
[2024-10-23 13:57] LABS: HBV CORE ANTIBODIES,TOTAL Negative (Negative)
--- NOTE | 2024-10-23 18:42 | NUR ---
END OF SHIFT SUMMARY NO ACUTE EVENTS THIS SHIFT. PT CONT TO BE SEDATED WITH PROPOFOL INFUSING AT 30MCG/KG/MIN AND FENTANYL INFUSING AT 25MCG/HR; SHE IS MORE INTERACTIVE WITH STAFF TODAY AND PARTICIPATING WITH Y/N QUESTIONS. AFEBRILE. HAS BEEN ON SPONT FOR MOST OF THE DAY; SPONT 16/, FIO2 30%. NSR WITH RATE 80-100. SBP 100-150'S; MAP 60-80, LOWER MAP'S DURING DIALYSIS, IMPROVED AFTERWARDS. TUBE FEED RESTARTED THIS SHIFT AT 15ML/HR (GOAL) WITH 30ML WATER FLUSHES Q4HR VIA OG. LITTLE IN PLACE WITH MINIMAL OUTPUT THIS SHIFT; DIALYSIS COMPLETED AGAIN TODAY AND REMOVED 3.8L; PLAN FOR DIALYSIS AGAIN TOMORROW. RED LIKE RASH NOTED, DR REED NOTIFIED, STEROIDS STARTED. PICC TO ANATOLIY CEVALLOS WITH DRESSING C/D/I. TRIALYSIS CATH TO [facility]; DRESSING CHANGED BY DIALYSIS NURSE TODAY. WILL REPORT TO PM RN WHEN AVAILABLE.
[2024-10-24] VITALS (108 sets, daily range): BP systolic 118–209; BP diastolic 45–99
--- NOTE | 2024-10-24 01:16 | NUR ---
PTS SKIN IS VERY RED, FROM POSSIBLE RASH, OVER MOST OF TORSO AND ARMS. SHE ALSO HAS SOME BREAKDOWN FROM A BLISTER THAT BURST AND ON HER BUTT. ELECTED NOT TO USE CHG FOR BED BATH DUE TO OVERALL FRAGILITY AND CONDITION OF HER SKIN CURRENTLY.
[2024-10-24 04:06] LABS: Stool Occult Blood Guaiac 1 Neg (Neg)
[2024-10-24 04:56] LABS: BASOPHILS ABSOLUTE AUTO 0.03 K/mm3 (0.00-0.23); BASOPHILS PERCENT AUTO 0 % (0-2); EOSINOPHILS ABSOLUTE AUTO 0.03 K/mm3 (0.00-0.68); EOSINOPHILS PERCENT AUTO 0 % (0-6); Hematocrit 23.4 % (33.0-51.0); Hemoglobin 7.8 g/dL (11.5-16.0); Mean Corpuscular HGB Conc 33.3 g/dL (31.5-36.5); Mean Corpuscular Volume 89 fL (80-100); NRBC ABSOLUTE 0.00 K/mm3 (0.00-0.02); NRBC Auto 0.0 /100 WBC (0.0-0.2); Platelet Count 119 K/mm3 (150-400); RDW Coefficient Variation 18.0 % (11.7-14.2); RDW Standard Deviation 57.7 fL (35.1-46.3)
[2024-10-24 05:07] LABS: IMMATURE GRAN ABSOLUTE AUTO 0.09 K/mm3 (0.00-0.10); IMMATURE GRAN PERCENT AUTO 1 % (0-1); LYMPHOCYTES ABSOLUTE AUTO 0.48 K/mm3 (0.84-5.20); LYMPHOCYTES PERCENT AUTO 5 % (21-46); MONOCYTES ABSOLUTE AUTO 0.16 K/mm3 (0.16-1.47); MONOCYTES PERCENT AUTO 2 % (4-13); NEUTROPHILS ABSOLUTE AUTO 8.23 K/mm3 (1.96-9.15); NEUTROPHILS PERCENT AUTO 91 % (41-73)
[2024-10-24 05:27] LABS: Albumin, Blood 2.9 g/dL (3.4-5.0); Anion Gap 15 mmol/L (3-11); Blood Urea Nitrogen 37 mg/dL (8-24); CO2, Blood 28 mmol/L (21-32); Calcium, Blood 9.0 mg/dL (8.5-10.1); Chloride, Blood 94 mmol/L (98-108); Creatinine, Blood 2.46 mg/dL (0.40-1.00); Glucose, Blood 161 mg/dL (70-99); Phosphorus, Blood 3.5 mg/dL (2.5-4.9); Potassium, Blood 3.8 mmol/L (3.5-5.5); Sodium, Blood 133 mmol/L (136-145)
--- NOTE | 2024-10-24 05:53 | NUR ---
SHIFT SUMMARY: NO SIGNIFICANT CHANGES OVERNIGHT. PT TOLERATING VENT, NEUROS INTACT. SHE RESPONDS TO QUESTIONS APPROPRIATELY AND MOVE HEAD, LEGS, AND ARMS WHEN OUT OF RESTRAINTS VERY WELL. STILL SUCTIONING A LOT OF ORAL SECRETIONS BUT NOT REQUIRING MUCH ETT SUCTIONING. PT IS FEBRILE AGAIN, SKIN IS VERY RED ALL OVER. SHE HAS SEEMED LESS COMFORTABLE AND CONSOLABLE TONIGHT. BP A LITTLE ELEVATED, HR SLIGHTLY TACHY.
--- NOTE | 2024-10-24 09:27 | NUR ---
DR. GARNICA TO BEDSIDE TO DISCUSS POC W/ SON- CAM. TRACH DISCUSSED AT LENGTH AND SON IS AGREEABLE.
--- NOTE | 2024-10-24 13:51 | NUR ---
DR. KOEHLER AND DR. GARNICA TO ROOM FOR TRACH PLACEMENT. PT SON CAM SIGNS CONSENT FORM AFTER RISK/BENEFITS EXPLAINED
[2024-10-24] MEDS ORDERED: Morphine Sulfate 10 MG/ML 1MLSYR IV ONE (14:00)
--- NOTE | 2024-10-24 14:16 | NUR ---
trach placement DR KOEHLER WITH DR GARNICA AND DR HU AT BEDSIDE TO PLACE TRACH. TIME OUT PERFORMED BY DR GARNICA AG 1415. MORPHINE 10MG GIVEN AT 1416 PROPOFOL GTT GOING AT 45MCG/KG/MIN AT 1417 CRYSTAL 50MG GIVEN IV VIA PICC AT 1417 100MCG ON OF FENTANYL STARTED ON GTT AT 1418 BP SHOWN ELEVEVATED WHILE PROCEDURE IS OCCURING 1429 FENTANYL 100MCG PUSH GIVEN 1429 ATIVAN 2MG PUSH GIVEN BP 184/[address] KOEHLER PLACING TRACH. SEE HIS REPORT. END AT 1500
[2024-10-24] MEDS ORDERED: LORazepam 2 MG/ML 1ML Injection ONE (14:26)
[2024-10-24] MEDS ORDERED: LORazepam 2 MG/ML 1ML Injection IV ONE (14:30)
[2024-10-24] MEDS ORDERED: FentaNYL Citrate 50 MCG/ML 2 ML Injection IV ONE (14:30)
--- NOTE | 2024-10-24 17:30 | NUR ---
DR. DONIS TO BEDSIDE FOR EVAL
--- NOTE | 2024-10-24 17:34 | NUR ---
SHIFT SUMMARY PT ON VENT AT BEGINNING OF SHIFT. WEANED OFF FENTANYL DRIP AND WAS FOLLOWING SIMPLE COMMANDS SUCH 'NOD YOUR HEAD, YES/NO'. FENTANYL DRIP RESTARTED DURING TRACH PLACEMENT AND IS CURRENTLY RUNNING AT 50MCG/HR. PROPOFOL AT 35MCG/KG/MIN. PT LUNGS COARSE W/ MODERATE SECRETIONS VIA ETT/ ORAL. PT HAD TRACH PLACED AT APPROX 1430, 6.0 FENESTRATED, CUFFED PLACED BY DR. KOEHLER. DR. GARNICA ALSO IN ROOM FOR PROCEDURE. PT ON VENT AC/VC 14/400/8/50% FIO2. SECRETIONS FROM TRACH BLODDY. SPUTUM SAMPLE AND BLOOD CULUTRES COLLECTED TODAY. PT RECIEVED DIALYSIS THIS AM AND APPROX 4L OF FLUID OFF. NO DIALYSIS TOMORROW PER DR. Navarro. PT SINUS/TACH RATE OF 90-100S DURING SHIFT. BP STABLE W/ MAP>65. PT TMAX 103.6- TREATED W/ PRN TYELENOL, FAN, AND ICE PACKS TO AXILLARY/GROIN/BACK OF NECK. NO URINE OUT PUT TODAY. MULTIPLE UNFORMED BMS TODAY. PT HAS BLISTERING TO MCKAY-ANAL AREA. AQUAFOR AND BARRIER CREAM TO AREA. PT ALSO HAS LESIONS TO ROOF OF MOUTH/BACK OF THROAT- MOUTHWASH APPLIED ORDERED. PT SKIN APPEARS REDDENED AND INFLAMED TO TRUNK, STOMACH, CHEST AND BILATERAL ARMS. TUBE FEED ON HOLD PENDING PEG TUBE PLACEMENT TOMORROW PER DR. DONIS CALL LIGHT W/ IN REACH. PLAN OF CARE ONGOING.
--- NOTE | 2024-10-24 19:35 | NUR ---
ASSUMPTION OF CARE NOTE: ASSUMED CARE OF PT AT 1900 AND PT IS CURRENTLY SEDATED WITH PROPOFOL INFUSING AT 35MCG/KG/MIN. PT ALSO HAS FENTANYL INFUSING AT 50MCG/HR.BILATERAL SOFT UPPER ARM RESTRAINTS IN PLACE. MONITOR SHOWS HR 80'S SBP 120'S. SATS ABOVE 94%. AC/VC 14/8/50% AND PATENT TRACH. PATENT LEDY PG AND RIJ.PT INCONT TO STOOL AND OLIGURIA-ATTENDS IN PLACE. ICE PACKS IN ARMPITS AND GROIN FOR PREV FEVER. PT NOW ORAL TEMP AT 97.5. SCD'S TO BLE'S. RASS SCORE OF -3. BED LOW AND LOCKED FOR SAFETY.
[2024-10-24] MEDS ORDERED: Vitamin B Cmplx/Vit C/Folic Ac 1 Tab PT SCH (21:00)
[2024-10-24 22:56] LABS: COMPLEMENT COMPONENT 3 176 mg/dL (90-180)
[2024-10-25] VITALS (50 sets, daily range): BP systolic 107–174; BP diastolic 41–71
[2024-10-25 01:42] LABS: COMPLEMENT COMPONENT 4 22 mg/dL (10-40)
[2024-10-25 04:17] LABS: Alanine Aminotransfer (ALT/SGP 54.0 U/L (12-78); Albumin, Blood 2.6 g/dL (3.4-5.0); Albumin/Globulin Ratio 0.7 (0.8-1.8); Anion Gap 14.0 mmol/L (3-11); Aspartate Aminotrans (AST/SGOT 28.0 U/L (12-37); Bilirubin, Total 0.7 mg/dL (0.1-1.0); Blood Urea Nitrogen 68.0 mg/dL (8-24); CO2, Blood 29.0 mmol/L (21-32); Calcium, Blood 8.7 mg/dL (8.5-10.1); Chloride, Blood 92.0 mmol/L (98-108); Creatinine, Blood 3.3 mg/dL (0.40-1.00); Globulin, Blood 3.5 g/dL (2.2-4.0); Glucose, Blood 134.0 mg/dL (70-99); Phosphorus, Blood 4.3 mg/dL (2.5-4.9); Potassium, Blood 3.4 mmol/L (3.5-5.5); Sodium, Blood 132.0 mmol/L (136-145); Total Protein, Blood 6.1 g/dL (6.4-8.2)
--- NOTE | 2024-10-25 06:42 | NUR ---
SHIFT SUMM: PT IS INTUBATED AND SEDATED WITH TRACH. PT CURRENTLY HAS PATENT RIJ AND PG LEDY. PROPOFOL INFUSING AT 45 MCG/KG/HR AND FENTANYL INFUSING AT 100MCG/HR. VENT SETTINGS: AC/PC /50% 8PEEP. PT HAS HAD NO URINE OUTPUT AND BLADDER SCANNED WITH NO URINE IN BLADDER. PT'S SKIN CONTINUES TO STILL BE RED AND IRITATED AND BLISTERS ON RECTUM, VAGINA AND INSIDE OF MOUTH. PT HAS HAD A SMALL LOOSE BM THIS SHIFT. PT'S FEVER HAS BEEN CONTROLLED WITH FANS AND ICE IN GROIN AND ARMPITS. Q6 BS. NOTIFIED FOR AM LABS AND SAID TO REFER TO 1ST PRESSMAN FOR FOLLOW UP. PT HAS CALL LIGHT AND BED LOW AND LOCKED.
--- NOTE | 2024-10-25 09:06 | NUR ---
DR. GARNICA TO ROOM TO DISCUSS POC AND PT STATUS W/ SON- CAM AT BEDSIDE
[2024-10-25] MEDS ORDERED: CeFAZolin Sodium 2,000 MG in NS 100 ML IV SCH (16:10)
[2024-10-25] MEDS ORDERED: NS 1,000 ML IV SCH (16:20)
--- NOTE | 2024-10-25 19:35 | NUR ---
SHIFT SUMMARY PT HAD PEG TUBE PLACED BY DR. DONIS AT APPROX 1700. PLAN TO RESUME TUBE FEEDING TOMORROW. PT HAS FENTANYL RUNNING AT 100MCG/HR AND PROPOFOL AT 40MCG/KG/HR. PT ON VENT W/ TRACH- SEE RT NOTES FOR CURRENT SETTINGS. TOLERATING WELL. SMALL SECRETIONS VIA TRACH. PT CONTINUES TO HAVE COPIOUS SECRETIONS ORALLY. ORAL CARE PERFORMED Q4 HOURS. PT NSR/SINUS TACH. BP STABLE. PT TMAX 99.7 TODAY. NO BM DURING SHIFT. TEMP PROBE LITTLE PLACED PER DR. GARNICA. NO OUTPUT AT THIS TIME. PT SKIN CONTINUES TO BE INFLAMMED. FRANSISCO PUT ON FOREHEAD BLISTERS. AQUAFOR/BARRIER CREAM TO MCKAY-AREA. PT TURNED Q2HRS. CHG BATH GIVEN. CALL LIGHT W/ IN REACH AND PT REMAINS IN BUE SOFT RESTRAINTS. PLAN OF CARE ONGOING.
--- NOTE | 2024-10-25 22:53 | NUR ---
10/25/24 2252 Maris Merino, SYSTEMS ARCHITECTURE ANALYST; SEE ANESTHESIA RECORDS.
[2024-10-26] VITALS (83 sets, daily range): BP systolic 96–182; BP diastolic 40–93
[2024-10-26 04:37] LABS: Magnesium, Blood 1.8 mg/dL (1.6-2.4)
[2024-10-26 04:43] LABS: Anion Gap 15.0 mmol/L (3-11); Blood Urea Nitrogen 80.0 mg/dL (8-24); CO2, Blood 25.0 mmol/L (21-32); Calcium, Blood 7.2 mg/dL (8.5-10.1); Chloride, Blood 88.0 mmol/L (98-108); Creatinine, Blood 3.75 mg/dL (0.40-1.00); Glucose, Blood 100.0 mg/dL (70-99); Phosphorus, Blood 2.3 mg/dL (2.5-4.9); Potassium, Blood 3.7 mmol/L (3.5-5.5); Sodium, Blood 124.0 mmol/L (136-145)
[2024-10-26 04:55] LABS: BASOPHILS ABSOLUTE AUTO 0.01 K/mm3 (0.00-0.23); BASOPHILS PERCENT AUTO 0 % (0-2); EOSINOPHILS ABSOLUTE AUTO 0.21 K/mm3 (0.00-0.68); EOSINOPHILS PERCENT AUTO 4 % (0-6); Hematocrit 18.3 % (33.0-51.0); Hemoglobin 6.3 g/dL (11.5-16.0); Mean Corpuscular HGB Conc 34.4 g/dL (31.5-36.5); Mean Corpuscular Volume 87 fL (80-100); NRBC ABSOLUTE 0.06 K/mm3 (0.00-0.02); NRBC Auto 1.2 /100 WBC (0.0-0.2); Platelet Count 98 K/mm3 (150-400); RDW Coefficient Variation 18.1 % (11.7-14.2); RDW Standard Deviation 57.7 fL (35.1-46.3)
[2024-10-26 04:56] LABS: IMMATURE GRAN ABSOLUTE AUTO 0.14 K/mm3 (0.00-0.10); IMMATURE GRAN PERCENT AUTO 3 % (0-1); LYMPHOCYTES ABSOLUTE AUTO 0.58 K/mm3 (0.84-5.20); LYMPHOCYTES PERCENT AUTO 11 % (21-46); MONOCYTES ABSOLUTE AUTO 0.22 K/mm3 (0.16-1.47); MONOCYTES PERCENT AUTO 4 % (4-13); NEUTROPHILS ABSOLUTE AUTO 3.96 K/mm3 (1.96-9.15); NEUTROPHILS PERCENT AUTO 77 % (41-73)
--- NOTE | 2024-10-26 05:28 | NUR ---
DR CONSULT PT LABS: HGB @ 6.3, HCT @ 18.3, PHOS @ 2.3, SODIUM @ 124. AWARE. ORDER FOR 1 UNIT PBRCs. STATES HE WILL REVIEW PT CHART FOR FURTHER ORDERS.
--- NOTE | 2024-10-26 06:22 | NUR ---
SHIFT SUMMARY S/P ACUTE HYPOXIC RESP FAILURE. INTUBATED VIA TRACH - RT NOTE FOR CURRENT SETTINGS. SEDATED: FENTANYL @ 100MCG/HR; PROPOFOL @ 40MCG/KG/HR. TRACH PRODUCING BROWN SECRETION, PT REQUIRES ORAL SUCTION c MODERATE BROWN OUTPUT VIA NOSTRILS. ORAL CARE Q4 PER ORDERS. TEMP ELEVATED, TYLENOL GIVEN PER EMAR. MAP >65. NSR. LITTLE c NO OUTPUT THIS SHIFT. NO BM THIS SHIFT. PEG TUBE TO L ABD C/D/I, CLAMPED c BILE IN LINE. PT SKIN REMAINS ULCERATED. Q2 TURNS. BILAT UPPER EXTREMITY SOFT RESTRAINTS IN PLACE. ANTICIPATED TO RECEIVE 1 UNIT PRBCs THIS AM. CALL LIGHT IN REACH, WILL REPORT TO DAY RN.
[2024-10-26 07:59] LABS: Hematocrit 21.8 % (33.0-51.0); Hemoglobin 7.5 g/dL (11.5-16.0)
--- NOTE | 2024-10-26 08:00 | NUR ---
ASSUMPTION OF CARE RECIEVED REPORT FROM [facility] NURSE. PT IS INTUBATED VIA TRACH AND HAS PROP RUNNING AT 40MCG/KG/HR AND FENTANYL RUNNING AT 100MCG/KG/HR. RASS SCORE OF -1. PT HAS A NEWLY PLACED PEG TUBE ON THE LEFT SIDE OF THE ABDOMEN, UNABLE TO RUN TUBE FEEDINGS UNTIL 24HR LEON, APPROX TONIGHT AT 1700. PT HAS RIGHT TRIALYSIS CENTRAL LINE AND PICC IN THE LEFT UPPER ARM. PT IS SEDATED AND DROWSY AND UNABLE TO TRACK. LITTLE IN PLACE DRAINING TO GRAVITY WITH <10MLS OF OUTPUT. LUNG SOUNDS COARSE AND CRACKLES T/O LOBES. HR IN 80S AND MAP >65. +2 EDEMA IN BUE. CALL LIGHT WITHIN REACH.
[2024-10-26] MEDS ORDERED: Oxymetazoline 0.05% Nasal Relief Spray 15mL BTL SCH (09:25)
[2024-10-26 09:43] LABS: Source, Urine Foley catheter
[2024-10-26 09:49] LABS: Bilirubin, Urine Neg (Neg); Glucose Qualitative, Urine Neg (Neg); Ketones, Urine Neg (Neg); Leukocyte Esterase, Urine 3+ (Neg); Protein, Urine 4+ (Neg); Specific Gravity, Urine 1.015 (1.003-1.022); Urobilinogen, Urine NORM (Normal)
[2024-10-26 10:04] LABS: Color, Urine Brown (P-Yellow)
[2024-10-26 10:07] LABS: White Blood Cells, Urine 50-100 /hpf (0-5)
--- NOTE | 2024-10-26 13:11 | NUR ---
PT REMOVED LITTLE CATH PT UNINTENTIONALLY REMOVED HER LITTLE CATHETER. ASSESSED LITTLE CATH, BALLOON INTACT AND NO BLOOD NOTED. NO WOUNDS NOTED TO THE URETHRA. NOTIFIED DR. MERCADO AND DR. GARNICA, BOTH AGREED TO NOT REPLACE THE LITTLE CATH AND DO BLADDER SCANS Q12HRS. PT DENIES BEING IN PAIN.
[2024-10-26] MEDS ORDERED: Protein Supplement 30 ML UD PT SCH (18:00)
--- NOTE | 2024-10-26 18:54 | NUR ---
SHIFT SUMMARY PT BEGAN SEDATION VACATION AT 0730, TOLERATED WELL AND PROP AND FENTANYL WERE BOTH STOPPED AROUND 0900. VENT SETTINGS VIA TRACH WERE TRANSITIONED TO SPONTANEOUS WITH 7/8 AND FIO2 OF 40%. O2 >90%, BECOMES HYPOXIC WITH POOR POSITIONING. LUNG SOUNDS COARSE AND CRACKLES T/O LOBES. MODERATE AMOUNT OF BLOOD-TINGED SECRETIONS FROM TRACH, ORAL, AND NARES. SECRETIONS FROM NARES IMPROVED T/O SHIFT. PT BECAME MORE COHERENET SEDATION WORE OFF, CAN TRACK, ANSWER QUESTIONS, AND FOLLOW COMMANDS. BUE SOFT RESTRAINTS REMOVED WHILE FAMILY PRESENT AND HAS NOT MADE ANY INTENTIONAL MOVEMENTS TO REMOVE TRACH. PT <15MLS OF OUTPUT AT 1300, WHEN PT UNINTENTIONALLY REMOVED HER LITTLE CATH. BALLOON PUMP WAS INTACT, NO BLEEDING NOTED, AND NO INJURY TO URETHRA IDENTIFIED. CONTACTED AND CONFIRMED THAT BLADDER SCANS Q12HRS IS APPROPRIATE. PT HAS RIGHT CENTRAL LINE AND LEFT PICC, BOTH FLUSH AND DRAW. PT HAS NEW PEG TUBE PLACED AND WAS ABLE TO BEGIN TUBE FEEDINGS AT 1700. PT HAS HAS A HR OF 80S-120S, OCCASIONAL SPIKE IN HEART RATE BUT RETURNS TO NORMAL. MAP >65. PT HAS MULTIPLE SKIN ABRASIONS, ORAL ULCERS, ULCERS IN THE PERINEAL AREA, REDNESS T/O BODY, SCATTERED BRUISING IN BLE. ABLE TO REPOSITION PT INTO CHAIR, TOLERATED WELL BUT REQUIRED FREQUENT REPOSITIONING D/T POOR ALIGNMENT AND HYPOXIA THAT RESULTED. PT HAS BEEN FEBRILE FOR THE SECOND HALF OF SHIFT, MANAGED WITH TYLENOL. FAMILY COOPERATIVE AND AT BEDSIDE.
[2024-10-27] VITALS (36 sets, daily range): BP systolic 141–193; BP diastolic 48–170
[2024-10-27 03:12] LABS: HSV SUBTYPE SOURCE ORAL
[2024-10-27 04:24] LABS: Hematocrit 21.9 % (33.0-51.0); Hemoglobin 7.1 g/dL (11.5-16.0); Mean Corpuscular HGB Conc 32.4 g/dL (31.5-36.5); Mean Corpuscular Volume 91 fL (80-100); NRBC ABSOLUTE 0.06 K/mm3 (0.00-0.02); NRBC Auto 0.9 /100 WBC (0.0-0.2); Platelet Count 114 K/mm3 (150-400); RDW Coefficient Variation 18.3 % (11.7-14.2); RDW Standard Deviation 60.6 fL (35.1-46.3)
[2024-10-27 04:53] LABS: Magnesium, Blood 1.9 mg/dL (1.6-2.4)
[2024-10-27 04:56] LABS: Anion Gap 7.0 mmol/L (3-11); Blood Urea Nitrogen 41.0 mg/dL (8-24); CO2, Blood 34.0 mmol/L (21-32); Calcium, Blood 8.1 mg/dL (8.5-10.1); Chloride, Blood 99.0 mmol/L (98-108); Creatinine, Blood 2.8 mg/dL (0.40-1.00); Glucose, Blood 131.0 mg/dL (70-99); Phosphorus, Blood 2.9 mg/dL (2.5-4.9); Potassium, Blood 3.7 mmol/L (3.5-5.5)
[2024-10-27 04:57] LABS: Sodium, Blood 136.0 mmol/L (136-145)
[2024-10-27 05:10] LABS: BAND PERCENT MAN 18 % (0-8); BASOPHILS ABSOLUTE MAN 0.07 K/mm3 (0.00-0.23); BASOPHILS PERCENT MAN 1 % (0-2); EOSINOPHILS ABSOLUTE MAN 0.07 K/mm3 (0.00-0.68); EOSINOPHILS PERCENT MAN 1 % (0-6); LYMPHOCYTES ABSOLUTE MAN 0.77 K/mm3 (0.84-5.20); LYMPHOCYTES PERCENT MAN 11 % (21-46); MONOCYTES ABSOLUTE MAN 0.14 K/mm3 (0.16-1.47); MONOCYTES PERCENT MAN 2 % (4-13); MYELOCYTE ABSOLUTE MAN 0.07 K/mm3 (0.00-0.00); MYELOCYTE PERCENT MAN 1 % (0-0); NEUTROPHILS ABSOLUTE MAN 5.88 K/mm3 (1.96-9.15); SEG NEUTROPHILS PERCENT MAN 66 % (41-73)
--- NOTE | 2024-10-27 06:25 | NUR ---
SHIFT SUMMARY S/P ACUTE HYPOXIC RESP FAILURE. SINUS TACH, MAP >65. INTUBATED VIA TRACH, SEE RT DOCUMENTATION FOR SETTINGS - SPONTANEOUS. TRACH PRODUCING MAYERS SECRETIONS, PT REQUIRES ORAL SUCTION c MOD CLEAR/PINK OUTPUT. ORAL CARE Q4 PER ORDERS. PT ALERT, ABLE TO FOLLOW SOME BASIC COMMANDS, ANSWERS Y/N QUESTIONS. PT INCREASINGLY RESTLESS IN BED c FREQUENT MOVEMENT OF ALL EXTREMITIES, PT PULLED AT VENT TUBING. PT PLACED IN BILAT UE SOFT RESTRAINTS APPROX 2240. ANURIA, ATTENDS IN USE. NO BM THIS SHIFT. PEG TUBE TO L ABD DRESSING C/D/I. TUBE FEED INFUSING AT GOAL RATE OF 35mL/HR c 30mL FLUSH Q4, TOLERATING WELL. PT TOLERATES MEDICATION VIA TUBE. SKIN REMAINS ULCERATED. CALL LIGHT IN REACH, WILL REPORT TO DAY RN.
--- NOTE | 2024-10-27 08:32 | NUR ---
AM NOTE... ASSUMED CARE OF PT AT 0700, PT IS A&O TO SELF, PLACE AND FOLLOWING COMMANDS. TRACH IS 6.0 FEN, VENT SETTINGS: PS: 7/8 AND 40% WITH O2 SATS>92%. L/S COARSE RHONCHI T/O WITH EXP WHEEZES AND CRACKLES NOTED IN THE BASES. PT IS IN SINUS TACH 110'S-120'S SBPs 150'S-170'S. PT IS NOTED TO HAVE GENERALIZED EDEMA TO HER UPPER BODY AND BUE. BT ARE PRESENT AND HYPOACTIVE, ABD HAS MILD DISTENTION. PEG TUBE IN PLACE 3CM AT THE LEVEL OF HER SKIN. NEPRO TUBE FEEDS RUNNING AT 35MLS/HR WHICH THE GOAL RATE. PICC LINE TO THE KALIE ALL PORTS FLUSH AND DRAW, TRIALYSIS CATH TO THE [facility]. NO PLANS FOR DIALYSIS TODAY. PT HAD 1 EPISODE OF URINARY INCONT.
--- NOTE | 2024-10-27 17:46 | NUR ---
SHIFT SUMMARY.... NO ACUTE NEGATIVE CHANGES NOTED THIS SHIFT. PT'S HR HAS BEEN SINUS TACH 110'S-120'S MOST OF THIS SHIFT. BP HAS BEEN HYPERTENSIVE WITH SBPs 150'S-180'S WHICH IS OKAY PER NEPHROLOGY. SHE WAS UP IN THE CHAIR MOST OF THIS SHIFT, SHE WORKED WITH PT/OT AND WAS ABLE TO USE THE COMMUNICATION BOARD AT TIMES T/O THE DAY. PT TOLERATED HER TUBE FEEDS AT 35MLS T/O THIS SHIFT. SHE HAD A [employer] SOFT BROWN BM. THE PT'S SONS WERE AT THE BEDSIDE MOST OF THE DAY, SHE WAS CHANGED FROM A FULL CODE TO A DNR AFTER THE SONS SPOKE WITH THE PT. BLADDER SCAN WAS DONE THAT SHOWED 17MLS AROUND 1600 TODAY. SHE HAD 1 INCONT VOID THIS AM. TMAX THIS SHIFT WAS 100.7, SHE WAS MEDICATED WITH TYLENOL PER EMAR TWICE WITH MINIMAL RESULTS.
[2024-10-28] VITALS (67 sets, daily range): BP systolic 110–192; BP diastolic 39–102
[2024-10-28] MEDS ORDERED: LORazepam 2 MG/ML 1ML Injection IV ONE ×3 (01:55→10:55)
[2024-10-28] MEDS ORDERED: Metoprolol Tartrate 1 MG/ML 5 ML VIAL IV ONE ×2 (05:10→12:20)
--- NOTE | 2024-10-28 05:23 | NUR ---
PT WENT INTO AFIB W/RVR. DR REYNA NOTIFIED. ORDERS GIVEN, EKG ON CHART
[2024-10-28 05:29] LABS: Albumin, Blood 2.5 g/dL (3.4-5.0); Albumin/Globulin Ratio 0.6 (0.8-1.8); Anion Gap 12.0 mmol/L (3-11); Aspartate Aminotrans (AST/SGOT 26.0 U/L (12-37); Bilirubin, Total 1.0 mg/dL (0.1-1.0); Blood Urea Nitrogen 70.0 mg/dL (8-24); CO2, Blood 29.0 mmol/L (21-32); Calcium, Blood 8.9 mg/dL (8.5-10.1); Chloride, Blood 95.0 mmol/L (98-108); Creatinine, Blood 3.98 mg/dL (0.40-1.00); Globulin, Blood 4.0 g/dL (2.2-4.0); Glucose, Blood 147.0 mg/dL (70-99); Phosphorus, Blood 2.8 mg/dL (2.5-4.9); Potassium, Blood 4.1 mmol/L (3.5-5.5); Sodium, Blood 132.0 mmol/L (136-145); Total Protein, Blood 6.5 g/dL (6.4-8.2)
[2024-10-28] MEDS ORDERED: Diltiazem HCl 5 MG / ML 5ML Vial IV ONE (05:40)
[2024-10-28 06:06] LABS: Alanine Aminotransfer (ALT/SGP 23.0 U/L (12-78)
[2024-10-28] MEDS ORDERED: Potassium Chl 20MEQ/Water100ML 100 ML IV ONE (06:10)
[2024-10-28 06:22] LABS: Magnesium, Blood 2.2 mg/dL (1.6-2.4)
--- NOTE | 2024-10-28 06:46 | NUR ---
SHIFT SUMMARY S/P ACUTE HYPOXIC RESP FAILURE. INTUBATED VIA TRACH, SEE RT DOCUMENTATION FOR SETTINGS - SPONTANEOUS. TRACH PRODUCING MAYERS SECRETIONS, PT REQUIRES ORAL SUCTION c MOD THICK MAYERS/PINK OUTPUT. ORAL CARE Q4 PER ORDERS. PT ALERT, ABLE TO FOLLOW SOME BASIC COMMANDS, ANSWERS Y/N QUESTIONS. PT INCREASINGLY RESTLESS IN BED c FREQUENT MOVEMENT OF ALL EXTREMITIES, PT PULLED AT VENT TUBING CONSISTENTLY THROUGHOUT THE NIGHT. PT PLACED IN BILAT UE SOFT RESTRAINTS APPROX 0220. PT c HYPERTENSION, MEDICATED PER EMAR c MIN RELIEF. PT HR INCREASED APPROX 0530 A-FIB c RVR. HR DID NOT DECREASE c IV PUSH MEDS PER EMAR. CARDIZEM DRIP STARTED APPROX 0630 @ 10mL/HR. ANURIA, ATTENDS IN USE. LARGE/SOFT/BROWN BM x2 THIS SHIFT. PEG TUBE TO L ABD DRESSING c MIN SEROUS DRAINAGE, OTHWERWISE C/D/I. TUBE FEED INFUSING AT GOAL RATE OF 35mL/HR c 30mL FLUSH Q4, TOLERATING WELL. PT TOLERATES MEDICATION VIA TUBE. SKIN REMAINS ULCERATED. CALL LIGHT IN REACH, WILL REPORT TO DAY RN.
--- NOTE | 2024-10-28 12:48 | NUR ---
REASSESSMENT PT GIVEN 5MG LOPRESSOR IV PER DR. GUERRA TO WHICH SHE CONVERTED BACK TO SR IN THE 80'S. DR. GUERRA NOTIFIED. PO LOPRESSOR GIVEN THROUGH PEG TUBE AND CARDIZEM GTT TO BE TITRATED DOWN AND THEN OFF. PT HAS BEEN GIVEN ATIVAN X2 [address] GUERRA AND FENTANYL X1 AND IS NOW RESTING COMFORTABLY IN BED. VENT SETTINGS UNCHANGED. BP STABLE FOLLOWING DIALYSIS. PT AFEBRILE THIS AM AND WAS GIVEN TYLENOL AND ICE PACKS W TEMP NOW WNL. PT HAS HAD MULTIPLE LOOSE STOLLS THIS SHIFT AND DR. GUERRA HAS ORDERED STOOL SAMPLE TO RULE OUT C-DIFF, THIS WILL BE COLLECTED W PT'S NEXT BM. PT'S LS STILL COARSE IN UPPER LOBES AND DIMINISED IN THE BASES. PT GIVEN CHG BATH AND CREAM APPLIED TO WOUNDS AROUND RECTUM AND MCKAY-AREA. PT'S SON AT BEDSIDE AND UPDATED ON PT'S CONDITION BY DR. GUERRA.
[2024-10-28 15:56] LABS: C DIFFICILE DNA NEGATIVE (Negative)
--- NOTE | 2024-10-28 18:14 | NUR ---
DAY SHIFT SUMMARY PT BEGAN SHIFT ALERT BUT COMPLETELY CONFUSED BEING RESTLESS IN THE BED NOT FOLLOWING COMMANDS. AFTER PT RECIEVED IV ATIVAN PER DR. GUERRA PT SLEPT COMFORTABLY FOR MOST OF THE DAY HOWEVER, WHEN SHE AWOKE SHE AGAIN BEGAN PULLING AT HER TRACH AND DISCONNECTING HERSELF FROM THE VENTILATOR. PT PLACED IN BILATERAL SOFT WRIST RESTRAINTS THIS AFTERNOON AFTER PT PULLED HER TRACH VERY HARD CAUSING PARTIAL CUFF DEFLATION. PT ON PS 14/8 W 30% FIO2. PT'S BP STABLE THIS SHIFT. PT AGAIN W FEVERS T/O THE SHIFT BEING TEMPORARILY RELIEVED W TYLENOL ADMINISTRATION BUT AGAAN RISING HOURS LATER. PT AFIB RVR THIS AM BUT PT CONVERTED TO SR AFTER IV LOPRESSOR WAS GIVEN SO IV CARDIZEM STOPPED AND PT LOPRESSOR GIVEN. PT W MULTIPLE LOOSE BM'S THIS SHIFT, STOOL SAMPLE SENT TO LAB AND PT IS C-DIFF NEGATIVE. PT TAKEN FOR PE STAUDY THIS SHIFT. PT HAD ECHO AND VENOUS DUPLEX THIS SHIFT. PT SON AT BEDSIDE FOR MOST OF THE DAY AND UPDATED ON PT'S CONDITION BY DR. GUERRA. WILL REPORT TO ONCOMING RN.
[2024-10-28] MEDS ORDERED: Banana Flakes/Tos 1 EA Powder Pack PT SCH (21:00)
[2024-10-28] MEDS ORDERED: LORazepam 2 MG/ML 1ML Injection IV PRN (21:30)
[2024-10-29] VITALS (60 sets, daily range): BP systolic 114–184; BP diastolic 46–132
[2024-10-29] MEDS ORDERED: LIDOCAINE 2.5%/PRILOCAINE 2.5% CREAM 30 GM TUBE TOP PRN (00:35)
[2024-10-29 04:15] LABS: BASOPHILS ABSOLUTE AUTO 0.03 K/mm3 (0.00-0.23); BASOPHILS PERCENT AUTO 0 % (0-2); EOSINOPHILS ABSOLUTE AUTO 0.33 K/mm3 (0.00-0.68); EOSINOPHILS PERCENT AUTO 4 % (0-6); Hematocrit 21.8 % (33.0-51.0); Hemoglobin 6.9 g/dL (11.5-16.0); IMMATURE GRAN ABSOLUTE AUTO 0.50 K/mm3 (0.00-0.10); IMMATURE GRAN PERCENT AUTO 6 % (0-1); LYMPHOCYTES ABSOLUTE AUTO 0.99 K/mm3 (0.84-5.20); LYMPHOCYTES PERCENT AUTO 11 % (21-46); MONOCYTES ABSOLUTE AUTO 0.75 K/mm3 (0.16-1.47); MONOCYTES PERCENT AUTO 8 % (4-13); Mean Corpuscular HGB Conc 31.7 g/dL (31.5-36.5); Mean Corpuscular Volume 92 fL (80-100); NEUTROPHILS ABSOLUTE AUTO 6.31 K/mm3 (1.96-9.15); NEUTROPHILS PERCENT AUTO 71 % (41-73); NRBC ABSOLUTE 0.04 K/mm3 (0.00-0.02); NRBC Auto 0.4 /100 WBC (0.0-0.2); Platelet Count 217 K/mm3 (150-400); RDW Coefficient Variation 18.6 % (11.7-14.2); RDW Standard Deviation 61.2 fL (35.1-46.3)
[2024-10-29 04:34] LABS: Alanine Aminotransfer (ALT/SGP 16.0 U/L (12-78); Albumin, Blood 2.5 g/dL (3.4-5.0); Albumin/Globulin Ratio 0.6 (0.8-1.8); Anion Gap 7.0 mmol/L (3-11); Aspartate Aminotrans (AST/SGOT 23.0 U/L (12-37); Bilirubin, Total 0.8 mg/dL (0.1-1.0); Blood Urea Nitrogen 49.0 mg/dL (8-24); CO2, Blood 33.0 mmol/L (21-32); Calcium, Blood 8.7 mg/dL (8.5-10.1); Chloride, Blood 96.0 mmol/L (98-108); Creatinine, Blood 2.54 mg/dL (0.40-1.00); Globulin, Blood 4.3 g/dL (2.2-4.0); Glucose, Blood 160.0 mg/dL (70-99); Magnesium, Blood 2.1 mg/dL (1.6-2.4); Phosphorus, Blood 2.1 mg/dL (2.5-4.9); Potassium, Blood 4.4 mmol/L (3.5-5.5); Sodium, Blood 132.0 mmol/L (136-145); Total Protein, Blood 6.8 g/dL (6.4-8.2)
[2024-10-29 05:22] LABS: pH Blood Venous 7.46 (7.34-7.37)
--- NOTE | 2024-10-29 06:35 | NUR ---
END OF GASTROENTEROLOGY PHYSICIAN NOTE: PATIENT ALERT BUT CURRENTLY NOT VERBAL (TRACH). FOLLOWS NO PURPOSEFUL COMMANDS BUT MOVES EXTREMITIES X4. FEVER MAX 102.3 THIS SHIFT. COOLING BLANKET PLACED UNDER PATIENT WELL PRN TYLENOL ADMIN PER ORDER. BILATERAL SOFT WRIST RESTRAINTS WITH NO NEW INJURIES NOTED THIS SHIFT. NSR/ST 90S/LOW 100S TO MONITOR. GOAL SBP <180. CONTINUED ON 6.0 SHILEY TRACH PS 20/8 30%. VBG RECIEVED THIS AM. RESULTS NOTED IN CHART. PEG WITH TUBE FEEDS AT GOAL OF 35 CC/HR. ANEURIC WITH QSHIFT BLADDER SCAN ORDER. BLADDER SCANNED 23CC TOTAL IN BLADDER. AM H/H 6.9/21.8. NEW ORDER FOR 1 PRBC WHICH IS CURRENTLY INFUSING AT THIS TIME. PRN ATIVAN ORDER RECIEVED EARLY THIS SHIFT AFTER NURSE NOTED PATIENT WITH INCREASED WORK OF BREATHIN, TACHPNEA NOTED WELL WITH COARSE/CRACKLES IN LUNGS WITH AUSCULTATION. MD NOTIFIED AND ORDERS RECIEVED. BM X5 THIS SHIFT. BM LIQUID/LOOSE AND BROWN IN COLOR. FLEXI PLACED RELATED TO NOTED RECTAL LESIONS AND INCREASED PAIN/RESTLESSNESS WITH FREQUENT CLEANING. LIDOCAIN CREAM ORDERED FOR RECTAL LESION PAIN AND APPLIED. NOTE PATIENT WITH IMPROVED COMFORT. AREA MARIANNA AND REMAINS CLEAN AND DRY. PRN FENT. ADMINISTERED FOR PATIENT PAIN NEEDED. ALL NEEDS ADRESSED THEY AROSE THIS SHIFT. SAFETY MAINTAINED.
--- NOTE | 2024-10-29 10:51 | NUR ---
TELEHEALTH WITH DR CAR (CONTACT AGENT) THIS MORNING. NEW ORDER PLACED FOR BLOOD CULTURES. PLAN FOR PLACEMENT OF TUNNELED CATH FOR FUTURE HD. NEURO: PT APPEARED VERY RESTLESS THIS AM EVIDENT BY FREQUENT MOVMENT AND ATTEMPTS TO REPOSITION. PT HYPERREFLEXIVE TO ANY TOUCH AND AT TIMES SOUNDS. FLEXION OF BUE AND ALSO LEGS FLEXED AT KNEES WITH FEET FLAT ON THE BED. SHE IS RESPONSIVE TO VERBAL AND PHYSICAL STIMULI BUT NOT FOLLOWING COMMANDS. PRN PAIN MEDICATION ADMINISTERED AT START OF MY SHIFT AND PT REPOSITIONED IN A EXAGGERATED TURN, PT APPEARS COMFORTABLE NOW. ROM IS LIMITED IN BUE'S PT WRISTS APPEAR DROPPED WITH FISTS MADE. CARDIAC: SINUS TACH, SBP 130-170S. B/P CUFF ROATED THIS AM PT RIDGED/FLEXION WHEN BP INFLATES. MOVED CUFF TO RLE PT LAYING ON RUE SIDE. PULM: EXP WHEEZE AND CRACKLES THIS AM. ON GOING ABDOMINAL BREATHING. RR 28-MIN 30S. PINK/CREAM COLOR SECRETIONS. RT REPLACED TUBING TODAY. TRACH CARE PERFORMED, DRIED BLOOD AT SITE. SOME DRAINAGE NOTED ON GAUZE - REPLACED. GI: ABOMEN IS FIRM, HYPOACTIVE BOWEL TONES. LIQUID/WATERY STOOLS. RECTAL TUBE IN PLACE. : NO UOP THIS AM, DIFFICULTY OBTAINING BLADDER SCAN DUE TO POSITIONING AND AGITIATION. SKIN: LESIONS SURROUNDING RECTUM, LESIONS IN MOUTH, ROUND QUARTER SIZED DRY LESION TO R INNER THIGH, DRIED/FLAKEY/PINK BED, APPEARS TO BE HEALING.
[2024-10-29 12:10] LABS: Hematocrit 27.6 % (33.0-51.0); Hemoglobin 8.8 g/dL (11.5-16.0)
[2024-10-29] MEDS ORDERED: Albuterol 2.5 MG/3 ML VIAL INH ONE (12:10)
[2024-10-29] MEDS ORDERED: ACYCLOVIR IV ONE (12:30)
[2024-10-29] MEDS ORDERED: DEXTROSE 5% IV ONE (12:30)
--- NOTE | 2024-10-29 13:02 | NUR ---
DR GUERRA AT BEDSIDE THIS AM HAD CONVERSATION WITH SON-CAM ABOUT GOALS OF CARE. REVIEWED RECENT TEMPS AND VARIATIONS WITH DR GUERRA, TEMPORAL- 105, AXILLARY 98 AND VISIBLE BODY FLUSHING UNCHANGED, FACIAL, TORSO AND ABDOMEN. AND MENTATION RASS-3, NOT FOLLOWING COMMANDS, ABLE TO MOVE ALL EXTREMITIES, HYPERREFLEXIA IN RESPONSE TO PHYSICAL STIMULI AND OCCASIONALLY VERBAL NEW ORDERS FOR ACYCLOVIR. TYLENOL ADMINISTERED, COOLING BLANKET REMAINS UNDERNEATH PT, ICE PACKS APPLIED. PT AGAIN SEEMS RESTLESS. PREFERS LAYING ON RIGHT SIDE. REPOSITIONED, PRN FENTANYL ADMINISTERED AND LIDOCAINE APPLIED TO BUTTOCK. PT TRACH CARE COMPLETED, SPONTANEOUS SETTING 20/8/30% O2 SATS >92%. ON GOING MAYERS/WHITE/PINK SECRETIONS. WATERY STOOLS UNCHANGED, BLADDER SCAN 50ML
--- NOTE | 2024-10-29 18:28 | NUR ---
SHIFT SUMMARY NEURO: AM-RESPONSIVE TO VERBAL STIMULI BUT NOT FOLLOWING COMMANDS, RASS -3. PM- PT NOW MAKING EYE CONTACT RASS-1, GRASPED MY HANDS AND ABLE TO NOD YES BUT UNABLE TO REPLICATE TO REPEAT AFTER INITAL REQUEST. MOVING EXTREMITIES BETTER THIS AFTERNOON. FEBRILE- TEMPORAL TMAX 105, AXILLARY 98F ALL DAY. RED FLUSHING PRESENT TO FACE/TRUNK/ABDOMEN. DR GUERRA NOTIFIED. HYPERREFLEXIA LESS THIS EVENING. COOLING BLANKET USED FOR FEVER. BLOOD CULTURES DRAWN. CARDIAC: SBP: 130-160S, HR 90-110S. SINUS TACH. B/P CUFF VERY POSITIONAL PT TENSES AND FLEXES EXTERMITIES THAT BP CUFF IS ON. PULM: COARSE/EXPIRATORY WHEEZE UPPER LOBES, BIBASILAR CRACKLES/COARSE. 6.0 TRACH, SPONTANEOUS 20/8/30%. MAYERS/WHITE/PINK/RED SECREATIONS TODAY. RECIEVED SCHEDULED NEBS. RR 22- MID 30S. BUE SOFT WRIST RESTRAINTS DUE TO PT ACCIDENTALLY DISLODGING VENT FROM TRACH. GI: RECTAL TUBE IN PLACE, APPROX 50ML OUT TODAY, WATERY BROWN DIARRHEA. HYPOACTIVE BOWEL TONES. : ANURIC- NO UOP TODAY, BLADDER SCAN INDICATED 50ML. SKIN: ULCERATIVE LESION MCKAY RECTAL, ONE DRY QUARTER SIZED LESION TO UPPER RIGHT THIGH UNCHANGED. PT RECIEVED I UNINT PRBC THIS SHIFT, H/H IMPROVED POST ADMINISTRATION. PT STARTED IV ACYCLOVIR. PAIN MANAGED WITH IV PRN FENTANYL, DUE TO CHANGE IN MENTATION FROM PRIOR DAYS HELD OFF ON GIVING ATIVAN.
[2024-10-29] MEDS ORDERED: Labetalol HCL 5 MG/ML 20MLVIAL IV PRN ×2 (18:55→20:00)
[2024-10-29] MEDS ORDERED: Labetalol HCL 5 MG/ML 20MLVIAL IV ONE (20:00)
[2024-10-30] VITALS (24 sets, daily range): BP systolic 111–194; BP diastolic 42–101
[2024-10-30 04:29] LABS: Alanine Aminotransfer (ALT/SGP 16.0 U/L (12-78); Albumin, Blood 2.5 g/dL (3.4-5.0); Albumin/Globulin Ratio 0.6 (0.8-1.8); Anion Gap 13.0 mmol/L (3-11); Aspartate Aminotrans (AST/SGOT 24.0 U/L (12-37); Bilirubin, Total 0.8 mg/dL (0.1-1.0); Blood Urea Nitrogen 75.0 mg/dL (8-24); CO2, Blood 29.0 mmol/L (21-32); Calcium, Blood 8.9 mg/dL (8.5-10.1); Chloride, Blood 94.0 mmol/L (98-108); Creatinine, Blood 3.75 mg/dL (0.40-1.00); Globulin, Blood 4.2 g/dL (2.2-4.0); Glucose, Blood 129.0 mg/dL (70-99); Phosphorus, Blood 1.5 mg/dL (2.5-4.9); Potassium, Blood 4.7 mmol/L (3.5-5.5); Sodium, Blood 131.0 mmol/L (136-145); Total Protein, Blood 6.7 g/dL (6.4-8.2)
[2024-10-30 07:24] LABS: Hematocrit 24.7 % (33.0-51.0); Hemoglobin 7.9 g/dL (11.5-16.0); Mean Corpuscular HGB Conc 32.0 g/dL (31.5-36.5); Mean Corpuscular Volume 94 fL (80-100); NRBC ABSOLUTE 0.11 K/mm3 (0.00-0.02); NRBC Auto 1.2 /100 WBC (0.0-0.2); Platelet Count 267 K/mm3 (150-400); RDW Coefficient Variation 17.4 % (11.7-14.2); RDW Standard Deviation 59.2 fL (35.1-46.3)
[2024-10-30 07:48] LABS: BAND PERCENT MAN 8 % (0-8); BASOPHILS ABSOLUTE MAN 0.00 K/mm3 (0.00-0.23); BASOPHILS PERCENT MAN 0 % (0-2); EOSINOPHILS ABSOLUTE MAN 0.36 K/mm3 (0.00-0.68); EOSINOPHILS PERCENT MAN 4 % (0-6); LYMPHOCYTES ABSOLUTE MAN 0.81 K/mm3 (0.84-5.20); LYMPHOCYTES PERCENT MAN 9 % (21-46); METAMYELOCYTE ABSOLUTE MAN 0.36 K/mm3 (0.00-0.00); METAMYELOCYTE PERCENT MAN 4 % (0-0); MONOCYTES ABSOLUTE MAN 0.81 K/mm3 (0.16-1.47); MONOCYTES PERCENT MAN 9 % (4-13); MYELOCYTE ABSOLUTE MAN 0.09 K/mm3 (0.00-0.00); MYELOCYTE PERCENT MAN 1 % (0-0); NEUTROPHILS ABSOLUTE MAN 6.60 K/mm3 (1.96-9.15); SEG NEUTROPHILS PERCENT MAN 65 % (41-73)
--- NOTE | 2024-10-30 10:00 | NUR ---
PT SON AT BEDSIDE. EXPRESSES THEY HAVE DECIDED TO MOVE FOWARD WITH FULL COMFORT CARE. CALLED AND NOTIFIED DR GUERRA AND [facility] [place] C[facility] NURSE TO COME TO BEDSIDE. HIS BROTHER IS ON HIS WAY TO THE HOSPITAL TO COME TO BED SIDE. NEURO: RESPONSIVE TO VERBAL STIMULI BUT NOT FOLLOWING COMMANDS, RASS +1 PT MAKING EYE CONTACT BRIEFLY BEFORE LOOKING UPWARD OR AROUND THE ROOM. GRASP ONE HAND X1 UNABLE TO REPLICATE TO REPEAT AFTER INITAL REQUEST. MOVING EXTREMITIES, RESTLESS. RECTAL THEMOMETER IN PLACE T 99 RED FLUSHING ON GOING. PRESENT TO FACE/TRUNK/ABDOMEN. HYPERREFLEXIA IMPROVED : ANURIC- NO UOP TODAY. OVER 2.1L + WITH NOTED WEIGHT GAIN. SKIN: ULCERATIVE LESION MCKAY RECTAL, ONE DRY QUARTER SIZED LESION TO UPPER RIGHT THIGH UNCHANGED. CARDIAC: SBP: 130-170S, HR 90-110S. SINUS TACH. B/P CUFF VERY POSITIONAL PT TENSES AND FLEXES EXTERMITIES THAT BP CUFF IS ON. PULM: COARSE/EXPIRATORY WHEEZE UPPER LOBES, BIBASILAR CRACKLES/COARSE. 6.0 TRACH, SPONTANEOUS 20/8/30%, REDUCED TO 15/8/30% THIS AM. TOLERATING WELL. MAYERS/WHITE SECREATIONS TODAY. RR 22- 30. BUE SOFT WRIST RESTRAINTS DUE TO PT ACCIDENTALLY DISLODGING VENT FROM TRACH. GI: RECTAL TUBE NO LONGER IN PLACE, BM X3 TODAY WATERY BROWN DIARRHEA.
[2024-10-30] MEDS ORDERED: Atropine Sulfate 1% Opth Soln 2ML BTL SL PRN (11:25)
[2024-10-30] MEDS ORDERED: Morphine Sulfate 20 MG/1ML 1 ML Oral Syringe SL PRN (11:25)
[2024-10-30] MEDS ORDERED: Morphine Sulfate 10 MG/ML 1MLSYR IV PRN (11:25)
[2024-10-30] MEDS ORDERED: LORazepam 2 MG/ML 1ML Injection IV PRN (11:25)
--- NOTE | 2024-10-30 11:31 | NUR ---
Family have decided to de-escalate care, beginning comfort care now. Another of pt's children set to arrive in approximately 2 hours. Medications ordered per Dr. Leon. PC RN will remain available to assist as needed.
[2024-10-30] MEDS ORDERED: Glycopyrrolate 0.2 MG/ML 5ML VIAL IV PRN (11:35)
[2024-10-30] MEDS ORDERED: Glycopyrrolate 0.2 MG/ML 5ML VIAL IV ONE (11:35)
--- NOTE | 2024-10-30 12:10 | NUR ---
REVIEWED WITH DR GUERRA PT RECENT MEDICATION ADMINISTION HX FOR RESTLESSNESS/PAIN. NEW VERBAL ORDERS FROM DR GUERRA. 100MCG FENTANYL AND 4MG ATIVAN NOW AND REPEAT X 1 PRIOR TO LIBERATION FROM VENT.
[2024-10-30] MEDS ORDERED: FentaNYL Citrate 50 MCG/ML 2 ML Injection IV ONE ×3 (12:20→16:35)
[2024-10-30] MEDS ORDERED: LORazepam 2 MG/ML 1ML Injection IV ONE ×3 (12:20→16:35)
--- NOTE | 2024-10-30 14:03 | NUR ---
PATIENT PREMEDICATED PRIOR TO LIBERATION FROM VENTILATOR PER ORDER PT CUFF DEFLATED, VENTILATOR DISCONNECTED AND PLACED ON BLOW BY AT 1404. PT APPEARS COMFORTABLE
--- NOTE | 2024-10-30 21:21 | NUR ---
ASSUMPTION OF CARE CARE OF PT ASSUMED FOLLOWING BEDSIDE SHIFT REPORT FROM DAY RN. PT HAS BEEN PLACED ON COMFORT CARE AND VENTILATOR WAS REMOVED AT 1400. PT IS ON 7L BLOW-BY THROUGH TRACH FOR COMFORT. PT APPEARS COMFORTABLE, PARTICULARLY IN COMPARISON TO LAST SEVERAL DAYS. SHE IS TACHYPNEIC AND SECRETIONS ARE AUDIBLE IN UPPER AIRWAY. WILL APPLY SCOPOLAMINE PATCH AND SUCTION NEEDED. PT DOES NOT RESPOND WITH INTENTION TO VOICE OR TOUCH, WITHDRAWS AT TIMES. PT COMFORT WILL BE OPTIMIZED IN OTHER WAYS WELL, SUCH PRN PAIN MEDICATION AND TURNING NEEDED. WILL REVIEW AND CONTINUE PLAN OF CARE.
--- NOTE | 2024-10-31 05:15 | NUR ---
PT PT AT 0205 WITH SON AND DAUGHTER IN ROOM. PAPER SEALER MADE PHONE CALLS TO [facility] AND THEN HOME, WHO THEN CAME AT 0345 TO REMOVE THE PT'S BODY. SON AND DAUGHTER TOOK THE PT'S PERSONAL ITEMS THAT THEY WANTED, HOME WITH THEM.
== END 2024-10-31 02:05 | DRG 4 ==
LOC: ER 05:17 → PCU 08:03 → ICUE 08:03 → PCU 11:21 → ICUE 12:49
PROVIDERS: Emergency Medicine; Hospitalist; Internal Medicine; Internal Medicine Critical Care Medicine; Internal Medicine Nephrology; Student in an Organized Health Care Education/Training Program; ADMIT Internal Medicine
PROC: 0BH17EZ Insertion of Endotracheal Airway into Trachea, Via Natural or Artificial Opening (ICD-10-PCS; principal; 2024-10-07)
PROC: 30233N1 Transfusion of Nonautologous Red Blood Cells into Peripheral Vein, Percutaneous Approach (ICD-10-PCS; 2024-10-07)
PROC: 4A033R1 Measurement of Arterial Saturation, Peripheral, Percutaneous Approach (ICD-10-PCS; 2024-10-07)
PROC: 3E03329 Introduction of Other Anti-infective into Peripheral Vein, Percutaneous Approach (ICD-10-PCS; 2024-10-07)
PROC: 02HV33Z Insertion of Infusion Device into Superior Vena Cava, Percutaneous Approach (ICD-10-PCS; 2024-10-07)
PROC: 0DH67UZ Insertion of Feeding Device into Stomach, Via Natural or Artificial Opening (ICD-10-PCS; 2024-10-07)
PROC: 3E033XZ Introduction of Vasopressor into Peripheral Vein, Percutaneous Approach (ICD-10-PCS; 2024-10-08)
PROC: 5A1955Z Respiratory Ventilation, Greater than 96 Consecutive Hours (ICD-10-PCS; 2024-10-09)
PROC: 0T9B70Z Drainage of Bladder with Drainage Device, Via Natural or Artificial Opening (ICD-10-PCS; 2024-10-09)
PROC: 0DH67UZ Insertion of Feeding Device into Stomach, Via Natural or Artificial Opening (ICD-10-PCS; 2024-10-09)
PROC: 3E0G76Z Introduction of Nutritional Substance into Upper GI, Via Natural or Artificial Opening (ICD-10-PCS; 2024-10-09)
PROC: 5A09357 Assistance with Respiratory Ventilation, Less than 24 Consecutive Hours, Continuous Positive Airway Pressure (ICD-10-PCS; 2024-10-14)
PROC: 0D9P70Z Drainage of Rectum with Drainage Device, Via Natural or Artificial Opening (ICD-10-PCS; 2024-10-15)
PROC: 30233J1 Transfusion of Nonautologous Serum Albumin into Peripheral Vein, Percutaneous Approach (ICD-10-PCS; 2024-10-20)
PROC: 5A1D70Z Performance of Urinary Filtration, Intermittent, Less than 6 Hours Per Day (ICD-10-PCS; 2024-10-21)
PROC: 0B113F4 Bypass Trachea to Cutaneous with Tracheostomy Device, Percutaneous Approach (ICD-10-PCS; 2024-10-24)
PROC: 0DH63UZ Insertion of Feeding Device into Stomach, Percutaneous Approach (ICD-10-PCS; 2024-10-25)
PROC: 0T2BX0Z Change Drainage Device in Bladder, External Approach (ICD-10-PCS; 2024-10-25)
DX: B37.7 Candidal sepsis (principal); J96.01 Acute respiratory failure with hypoxia; N17.0 Acute kidney failure with tubular necrosis; G92.8 Other toxic encephalopathy; J96.02 Acute respiratory failure with hypercapnia; I50.33 Acute on chronic diastolic (congestive) heart failure; D75.81 Myelofibrosis; E87.1 Hypo-osmolality and hyponatremia; J45.901 Unspecified asthma with (acute) exacerbation; E87.0 Hyperosmolality and hypernatremia; G62.81 Critical illness polyneuropathy; J95.84 Transfusion-related acute lung injury (TRALI); J45.902 Unspecified asthma with status asthmaticus; I13.0 Hypertensive heart and chronic kidney disease with heart failure and stage 1 through stage 4 chronic kidney disease, or unspecified chronic kidney disease; E87.4 Mixed disorder of acid-base balance; Z51.5 Encounter for palliative care; Z66 Do not resuscitate; B37.1 Pulmonary candidiasis; R65.20 Severe sepsis without septic shock; D63.1 Anemia in chronic kidney disease; N18.31 Chronic kidney disease, stage 3a; G25.81 Restless legs syndrome; E78.5 Hyperlipidemia, unspecified; E83.51 Hypocalcemia; R54 Age-related physical debility; D46.9 Myelodysplastic syndrome, unspecified; E87.71 Transfusion associated circulatory overload; E87.6 Hypokalemia; R21 Rash and other nonspecific skin eruption; F10.10 Alcohol abuse, uncomplicated; B00.9 Herpesviral infection, unspecified; I48.91 Unspecified atrial fibrillation; R14.0 Abdominal distension (gaseous); F32.A Depression, unspecified; F41.9 Anxiety disorder, unspecified; R19.7 Diarrhea, unspecified; Z79.51 Long term (current) use of inhaled steroids; Z79.899 Other long term (current) drug therapy; Z90.710 Acquired absence of both cervix and uterus; Z98.890 Other specified postprocedural states; Z88.8 Allergy status to other drugs, medicaments and biological substances; Z90.722 Acquired absence of ovaries, bilateral; Z60.2 Problems related to living alone; Z87.891 Personal history of nicotine dependence; Z79.69 Long term (current) use of other immunomodulators and immunosuppressants; Z79.82 Long term (current) use of aspirin; Z93.6 Other artificial openings of urinary tract status; Z83.3 Family history of diabetes mellitus; Z82.49 Family history of ischemic heart disease and other diseases of the circulatory system; Z82.8 Family history of other disabilities and chronic diseases leading to disablement, not elsewhere classified
CPT/HCPCS: 0202U; 31500; 31720; 36415; 36430; 36556; 36569; 36600; 51702; 70450; 71045; 71046; 71260; 74018; 74176; 76770; 80048; 80053; 80069; 80076; 80202; 81001; 82247; 82248; 82272; 82533; 82550; 82803; 82947; 83010; 83540; 83550; 83605; 83615; 83735; 83880; 84100; 84478; 84484; 85014; 85018; 85025; 85027; 85610; 86037; 86160; 86704; 86850; 86900; 86901; 86923; 87040; 87070; 87077; 87106; 87186; 87205; 87340; 87449; 87493; 87517; 87529; 87637; 92526; 92610; 93005; 93010; 93306; 93308; 93970; 94002; 94003; 94640; 94660; 94664; 94760; 94762; 96365; 96367; 97110; 97162; 97164; 97166; 97168; 97530; 99285-25; A6590; A9270; C1751; C1752; C1769; J0133; J0360; J0456; J0612; J0692; J0696; J1644; J1650; J1938; J2060; J2270; J2371; J2470; J2543; J2704; J2919; J3010; J3360; J3373; J3411; J3465; J3475; J3480; J7030; J7040; J7050; J7070; P9016; P9047; Q9967